=== PATIENT | male | born 1975 | race Caucasian/White ===

== ENCOUNTER 2024-09-01 17:34 | Inpatient (IN) | payer MEDICAID ==
[~2024-09-01] VITALS: Ht 182.9 cm; Wt 136.6 kg
[2024-09-01 17:44] VITALS: BP 149/79; PULSE 92; RESP 17; TEMP 98.7; O2SAT 99
[2024-09-01] MEDS ORDERED: CLINDAMYCIN 900MG IV 50 ML IV ONE (18:00)
--- NOTE | 2024-09-01 18:06 | ED.PDOC ---
Musculoskeletal HPI Comments Varicose Vein Procedure on 08/22/24 PMHx-DM, HTN, High Lipids, DVT, CVA(permanent right sided deficits), [place] Chest tumor resection SHx-Brain Sx for brain tumor Medications-Lasix, Bactrim x5 days, Xarelto HPI: Poor Historian. 48-year-old male presents to emergency department with his caregiver for evaluation of right lower extremity [id number] cellulitis. Patient states he has been going on for approximately 4-5 days. Patient has already been on antibiotics for cellulitis for the last five days but he said he is getting worse. There is increased redness and swelling. Denies any other acute associated symptoms. Patient is neurovascularly intact in the affected extremity. REVIEW OF SYSTEMS: CONSTITUTIONAL: Denies acute: fever, diaphoresis, chills, generalized weakness. HEAD: Denies acute: headache, photophobia Eyes: Denies acute: Double vision, vision loss, eye pain, eye discharge. EARS: Denies acute: tinnitus, hearing loss, ear discharge, ear pain, THROAT: Denies acute: sore throat, swelling, difficulty swallowing , pain with swallowing, change in voice. NECK: Denies acute: neck pain, neck swelling, stiff neck. HEART: Denies acute : chest pain, palpitations, LUNGS: Denies acute: SOB, wheezing, cough, hemoptysis ABDOMEN: Denies acute: abdominal pain, Nausea, Vomiting, diarrhea, melena , hematemesis, hematochezia SKIN: Denies acute: itchiness. EXTREMITIES: Denies acute: calf pain, numbness, tingling, weakness, Denies acute: Low back pain. Neuro: Denies acute: focal neurological deficit, motor or sensory focal neurological deficit, tremors, seizure like activity, confusion, dizziness, change in mental status, loss of bowel or bladder function, cauda equina like symptoms. : Denies acute: dysuria, hematuria, flank pain, increase in urinary frequency. PSYCH: Denies acute: hallucination, suicidal ideation, homicidal ideation. PHYSICAL EXAM: General: no acute distress, awake and alert. Head: normocephalic, atraumatic. Neck: supple, trachea is midline, no swelling. Throat: Normal phonation. Eyes:, no erythema, no purulent discharge, no proptosis, no icterus. Heart: regular rate, regular rhythm, no significant murmur appreciated. Lungs: no apparent respiratory distress, Able to speak in full sentences. No wheezing, no rhonchi, no crackles. No stridors Clear to auscultation bilaterally. Abdomen: non tender to palpation, non distended, soft, no guarding, no rebound, + bowel sounds. Neuro: Awake, Alert, oriented to name, self, situation, follows commands GCS=15. Speech is normal. Skin: no petechia, no purpura, no cyanosis, non-pale, not jaundice. Lower extremities: --3/4- right lower extremity Pitting edema no deformity, no focal swelling, no calf TTP. Patient was neurovascularly intact in the affected extremity. Pedal pulses palpable sensory and motor are present. Makes eye contact. moves all four extremities. Noted right sided deficit. Face: no apparent facial droop. ED COURSE: Chief Complaint: Lower Extremity Time Seen by MD: 17:45 Reviewed Notes: Nurses Notes, Medications, Allergies Allergies: Coded Allergies: Penicillins (Verified Allergy, Unknown, 09/11/23) Information Source: Patient Mode of Arrival: Ambulatory Location: Right Prehospital treatment: None Severity: Moderate Able to Move Extremity: Yes Bear Weight: Limited Pain: Moderate Mechanism: Unknown Symptoms: Swelling, Erythema Past Medical History PAST MEDICAL HISTORY: CVA (permenant right sided defecits), DM, High Lipids, HTN Past Medical History (Other): Brain Tumor, [place] chest tumore recession, DVT Surgical History (Other): Brain Sx due from brain Tumor Family History Family History: Reviewed,noncontributory to illness, Unknown Social History Smoker: Non-Smoker Alcohol: Denies ETOH Use Drugs: Denies Drug Use Lives In: Home Was a procedure done? Was a procedure done?: No Differential Diagnosis EXT Differential Diagnosis: Other (Leg swellingDdx include but not limited to DVT, ischemic limb, pitting edema, volume overload, CHF, cellulitis, hematoma, compartment syndrome, dependent edema, venous stasis.) X-Ray, Labs, Meds, VS Vital Signs Date Time Temp Pulse Resp B/P (MAP) Pulse Ox O2 Delivery O2 Flow Rate FiO2 09/01/24 17:44 98.7 92 17 149/79 (102) 99 98.7 Lab Test 09/01/24 20:19 09/01/24 18:39 Range/Units Troponin I High Sensitivity < 3 L 3 L </=54 ng/L White Blood Count 7.2 4.4-10.8 10^3/uL Red Blood Count 4.42 L 4.5-5.90 10^6/uL Hemoglobin 13.6 13.5-17.5 g/dL Hematocrit 39.9 L 41.0-53.0 % Mean Corpuscular Volume 90.3 80.0-100.0 fL Mean Corpuscular Hemoglobin 30.6 28.0-32.0 pg Mean Corpuscular Hemoglobin Concent 33.9 32.0-36.0 g/dL Red Cell Distribution Width 14.4 H 11.8-14.3 % Platelet Count 316 140-450 10^3/uL Mean Platelet Volume 7.6 6.9-10.8 fL Neutrophils (%) (Auto) 63.0 37.0-80.0 % Lymphocytes (%) (Auto) 25.6 10.0-50.0 % Monocytes (%) (Auto) 8.1 0.0-12.0 % Eosinophils (%) (Auto) 2.2 0.0-7.0 % Basophils (%) (Auto) 1.1 0.0-2.0 % Neutrophils # (Auto) 4.5 1.6-8.6 10 ^3/uL Lymphocytes # (Auto) 1.8 0.4-5.4 10 ^3/uL Monocytes # (Auto) 0.6 0-1.3 10 ^3/uL Eosinophils # (Auto) 0.2 0-0.8 10 ^3/uL Basophils # (Auto) 0.1 0-0.2 10 ^3/uL Nucleated Red Blood Cells 0.2 % Erythrocyte Sedimentation Rate 13 0-20 mm/hr Sodium Level 140 136-145 mmol/L Potassium Level 4.4 3.5-5.1 mmol/L Chloride Level 106 98-107 mmol/L Carbon Dioxide Level 25 20-31 mmol/L Anion Gap 9 5-15 Blood Urea Nitrogen 17 9-23 mg/dL Creatinine 1.26 0.700-1.30 mg/dL Glomerular Filtration Rate Calc 69 >90 mL/min BUN/Creatinine Ratio 13.5 10.0-20.0 Serum Glucose 123 H 74-106 mg/dL Lactic Acid Level 1.4 0.4-2.0 mmol/L Calcium Level 10.2 8.7-10.4 mg/dL Total Bilirubin 1.0 0.2-1.0 mg/dL Aspartate Amino Transferase (AST) 28 13-40 U/L Alanine Aminotransferase (ALT) 26 7-40 U/L Alkaline Phosphatase 67 46-116 U/L C-Reactive Protein High Sensitivity 0.58 <1.0 mg/dL B-Type Natriuretic Peptide 5.88 0-100 pg/mL Total Protein 7.7 5.7-8.2 g/dL Albumin 5.0 H 3.2-4.8 g/dL [place] [address] Ph: [phone] DIAGNOSTIC IMAGING Diagnostic Imaging Report : [id number] Signed PATIENT: OPAL GARSIA ACCT: [id number] UNIT: [id number] : 1975 LOC: ER ROOM / BED: / AGE / SEX: 48 / M ADM STATUS: REG ER SERVICE 2219 ORDERING PHYSICIAN: RICH RODRIGUEZ DO PROCEDURE(s): RLDVT - RT Lower DVT REASON: swelling/redness ORDER NUMBER(s): [id number], ACCESSION NUMBER(s): [id number] RIGHT lower extremity venous duplex Clinical History: swelling/redness Comparison: None Technique: Duplex Doppler evaluation of the deep venous systems of RIGHT lower extremities from the common femoral veins to the popliteal veins including color Doppler and spectral/pulsed waveform analysis was performed. Findings: RIGHT SIDE: The common femoral vein demonstrates appropriate compressibility and waveform variability. There is compressibility/patency of the great saphenous vein at the proximal thigh. The femoral vein demonstrates appropriate compressibility and waveform variability. The deep femoral vein demonstrates appropriate compressibility and waveform variability. The popliteal vein demonstrates appropriate compressibility and waveform variability. There is normal compressibility at the tibioperoneal trunk. Impression: 1. No right femoropopliteal venous thrombosis. ATED BY: ANGEL CHIN Jr. DO DICTATED DATE/TIME: 09/01/241823 SIGNED BY: ANGEL CHIN Jr., SIGNED DATE/TIME: 09/01/241823 CC: [place] [address] Ph: [phone] DIAGNOSTIC IMAGING Diagnostic Imaging Report : [id number] Signed PATIENT: OPAL GARSIA ACCT: [id number] UNIT: [id number] : 1975 LOC: ER ROOM / BED: / AGE / SEX: 48 / M ADM STATUS: REG ER SERVICE 25 ORDERING PHYSICIAN: RICH RODRIGUEZ DO PROCEDURE(s): RTLEXW - RT LOWER EXTREMITY W CON REASON: redness, swelling ORDER NUMBER(s): [id number], ACCESSION NUMBER(s): [id number] EXAM: CT RT LOWER EXTREMITY W CON HISTORY: redness, swelling COMPARISON: None TECHNIQUE: Noncontrast axial CT images of the right lower extremity at and below the level of the right knee were performed. Sagittal and coronal reformatted images were obtained. This CT exam was performed using one or more of the following dose reduction techniques: Automated exposure control, adjustment of the mA and/or kv according to patient size, or the use of iterative reconstruction techniques. Radiation Dose Information: CT Dose: CTDI volume is 7.75 mGy. Dose-length product is 618.13 mGy*cm FINDINGS: No acute fracture or dislocation are identified about the right foot. No significant degenerative changes. Note is made of a fabella. There is bony demineralization. No focal osteopenia or cortical destruction is seen to suggest osteomyelitis. There is moderate subcutaneous edema in the distal right lower extremity predominantly in the mid and lower aspect below the level of the right knee. The Muscle bundles about the right lower extremity are intact. No soft tissue gas or loculated fluid collection IMPRESSION: 1. No acute osseous abnormality. 2. Moderate subcutaneous edema in the distal right lower extremity predominantly in the mid and lower aspect below the level of the right knee. 3. No soft tissue gas or loculated fluid collection. ATED BY: MARVIN SILVA MD DICTATED DATE/TIME: 09/01/242202 SIGNED BY: MARVIN SILVA MD SIGNED DATE/TIME: 09/01/242202 CC: Time of 1ST Reevaluation: 18:15 Reevaluation 1ST: Unchanged Patient Education/Counseling: Diagnosis, Treatment Family Education/Counseling: Diagnosis, Treatment Comments Patient presented with the above HPI. Leg swelling and erythema workup was initiated. patient was found with the above mentioned diagnosis. the following medications were ordered: please refer to order lists of meds and tests obtained by myself Dr. Rodriguez. Patient ED course and VS have been stabilized. Patient has been reassessed in the ED and remained in a stable condition. Pertinent incidental findings were discussed with the patient and/or family. Patient/family voices understanding and is agreeable with plan. Patient has been observed in the ED adequate length of time to insure improvement/stability. Escalation of care considered: Consideration of escalation to observation or admission Patient was ADMITTED to the medicine team for further evaluation and treatment of their presentation. Patient failed outpatient oral antibiotics. All the reports of any imaging studies that were ordered by myself were reviewed by myself. Departure 1 Departure Time of Disposition: 18:31 Impression: Primary Impression: Cellulitis of right leg Disposition: ADMITTED INPATIENT Admit to: Tele Condition: Guarded Discharged With: Self Critical Care Note Critical Care Time?: No Heart Score Heart Score: Heart Score Response (Comments) Value History N/A 0 EKG N/A 0 Age N/A 0 Risk Factors N/A 0 Troponin N/A 0 Total 0 I personally scribed for RICH RODRIGUEZ DO ([email or web address]) on 09/01/24 at 18:06. Electronically submitted by Rodolfo Ruiz ([email or web address]). I personally scribed for RICH RODRIGUEZ DO ([email or web address]) on 09/01/24 at 18:59. Electronically submitted by Nehemias Morales ([email or web address]). I personally scribed for RICH RODRIGUEZ DO ([email or web address]) on 09/01/24 at 23:01. Electronically submitted by Nehemias Morales ([email or web address]). RICH RODRIGUEZ DO Sep 01, 2024 18:06
--- NOTE | 2024-09-01 18:26 | DVH ---
RIGHT lower extremity venous duplex Clinical History: swelling/redness Comparison: None Technique: Duplex Doppler evaluation of the deep venous systems of RIGHT lower extremities from the common femor al veins to the popliteal veins including color Doppler and spectral/pulsed waveform analysis was per formed. Findings: RIGHT SIDE: The common femoral vein demonstrates appropriate compressibility and waveform variability. There is compressibility/patency of the great saphenous vein at the proximal thigh. The femoral vein demonstrates appropriate compressibility and waveform variability. The deep femoral vein demonstrates appropriate compressibility and waveform variability. The popliteal vein demonstrates appropriate compressibility and waveform variability. There is normal compressibility at the tibioperoneal trunk. Impression: 1. No right femoropopliteal venous thrombosis.
[2024-09-01 18:52] LABS: Basophils # (auto) 0.1 10 ^3/uL (0-0.2); Basophils % (auto) 1.1 % (0.0-2.0); Eosinophils # (auto) 0.2 10 ^3/uL (0-0.8); Eosinophils % (auto) 2.2 % (0.0-7.0); Hematocrit 39.9 % (41.0-53.0); Hemoglobin 13.6 g/dL (13.5-17.5); Lymphocytes # (auto) 1.8 10 ^3/uL (0.4-5.4); Lymphocytes % (auto) 25.6 % (10.0-50.0); Mean Corpuscular Hemoglobin 30.6 pg (28.0-32.0); Mean Corpuscular Hgb Conc. 33.9 g/dL (32.0-36.0); Mean Corpuscular Volume 90.3 fL (80.0-100.0); Monocytes # (auto) 0.6 10 ^3/uL (0-1.3); Monocytes % (auto) 8.1 % (0.0-12.0); Neutrophils # (auto) 4.5 10 ^3/uL (1.6-8.6); Nucleated Red Blood Cells % 0.2 %; Platelet Count (auto) 316 10^3/uL (140-450); Red Blood Cells 4.42 10^6/uL (4.5-5.90); Red Cell Distribution Width 14.4 % (11.8-14.3); White Blood Cell 7.2 10^3/uL (4.4-10.8)
[2024-09-01 19:09] LABS: Alanine Aminotransferase 26 U/L (7-40); Alkaline Phosphatase 67 U/L (46-116); Anion Gap 9 (5-15); Aspartate Aminotransferase 28 U/L (13-40); BUN/Creatinine Ratio 13.5 (10.0-20.0); Blood Urea Nitrogen 17 mg/dL (9-23); CRP High Sensitivity 0.58 mg/dL (<1.0); Calcium 10.2 mg/dL (8.7-10.4); Carbon Dioxide 25 mmol/L (20-31); Chloride 106 mmol/L (98-107); Potassium 4.4 mmol/L (3.5-5.1); Sodium 140 mmol/L (136-145); Total Protein 7.7 g/dL (5.7-8.2)
[2024-09-01 19:11] LABS: Glucose 123 mg/dL (74-106)
[2024-09-01 19:26] LABS: Erythrocyte Sedimentation Rate 13 mm/hr (0-20)
--- NOTE | 2024-09-01 22:05 | DVH ---
EXAM: CT RT LOWER EXTREMITY W CON HISTORY: redness, swelling COMPARISON: None TECHNIQUE: Noncontrast axial CT images of the right lower extremity at and below the level of the rig ht knee were performed. Sagittal and coronal reformatted images were obtained. This CT exam was perfo rmed using one or more of the following dose reduction techniques: Automated exposure control, adjust ment of the mA and/or kv according to patient size, or the use of iterative reconstruction techniques . Radiation Dose Information: CT Dose: CTDI volume is 7.75 mGy. Dose-length product is 618.13 mGy*cm FINDINGS: No acute fracture or dislocation are identified about the right foot. No significant degenerative flavio nges. Note is made of a fabella. There is bony demineralization. No focal osteopenia or cortical dest ruction is seen to suggest osteomyelitis. There is moderate subcutaneous edema in the distal right lo wer extremity predominantly in the mid and lower aspect below the level of the right knee. The Muscle bundles about the right lower extremity are intact. No soft tissue gas or loculated fluid collection IMPRESSION: 1. No acute osseous abnormality. 2. Moderate subcutaneous edema in the distal right lower extremity predominantly in the mid and lower aspect below the level of the right knee. 3. No soft tissue gas or loculated fluid collection.
[2024-09-01] MEDS ORDERED: LISINOPRIL 20 MG TAB PO ONE (23:00)
[2024-09-01] MEDS ORDERED: hydroCHLOROthiazide 25 MG TAB PO ONE (23:00)
[2024-09-01] MEDS ORDERED: FUROSEMIDE 20 MG/2 ML VIAL IV ONE (23:00)
[2024-09-01] MEDS ORDERED: VANCOMYCIN PER PHARMACY 0 MG IV SCH (23:00)
[2024-09-01] MEDS ORDERED: ATORVASTATIN 20 MG TAB PO ONE (23:00)
[2024-09-01] MEDS ORDERED: HYDROcodone-ACET 5/325MG TAB PO PRN (23:00)
[2024-09-01] MEDS ORDERED: ACETAMINOPHEN 325 MG TAB PO PRN (23:00)
[2024-09-01] MEDS ORDERED: ENOXAPARIN SOD 100 MG/1 ML SYRINGE SC ONE (23:00)
--- NOTE | 2024-09-01 23:16 | DVHHPRES ---
History of Present Illness Resident Creating Document: ERIK MURPHY RESDIENT History of Present Illness This is a 48-year-old male with past medical history of diabetes, hypertension, dyslipidemia, DVT, varicose vein and brain tumor (status post surgery with CVA of right-sided, 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 Patient had a surgery for bilateral lower limbs 2 weeks back at outpatient basis, subsequently 5 days later he developed right lower limb erythema and swelling, upon visits of [facility] he was diagnosed with cellulitis and was prescribed cephalexin and Bactrim which he used for 5 days but the swelling and erythema worsened and prompted this visit. Due to previous CVA he has right-sided upper limb and lower limb weakness with sensory deficits of right lower limb. He denies fever, nausea, vomiting, shortness of breath, or pain. 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 Denies smoking or any other drug use Home medication: Rosuvastatin, metformin, vitamin B12, furosemide, hydrochlorothiazide, potassium, Xarelto, Ozempic and lisinopril Allergic history: Penicillins Review of Systems Review of Systems General: patient denies fever, fatigue, weaknes, sweating, any recent changes in appetite and weight HEENT: No headaches, visiual changes, hearing loss, tinnitus, nasal congestion and discharge, and sore throat. Cardiovascular: Denies chest pain, palpitations, dyspnea on exertion, orthopnea, or claudication. Respiratory: No cough, and wheezing. Gastrointestinal: Denies nausea, vomiting, dysphagia, odynophagia, heartburn, abdominal pain, flatulence, bloating, diarrhea, constipation, change in stool, or blood in stool. Genitourinary: No dysuria, hematuria, discharge, frequency, urgency, nocturia, incontinence, and urinary retention. Endocrine: No heat or cold intolerance, polydipsia, polyuria, and polyphagia. Neurological: No dizziness, extremity weakness and numbness, tremors, gait disturbance, seizures, and memory impairment. Psychiatric: Denies depression, anxiety,or insomnia. Musculoskeletal: Reports right lower limb swelling and erythema Skin: No rashes, itching, skin lesion, changes in hair, nail, skin texture and breast. Hematologic/Lymphatic: Denies easy bruising, bleeding tendencies, or lymph node enlargement. Allergies: Coded Allergies: Penicillins (Verified Allergy, Unknown, 09/11/23) Exam Vital Signs Vital Signs Date Time Temp Pulse Resp B/P (MAP) Pulse Ox O2 Delivery O2 Flow Rate FiO2 09/01/24 17:44 98.7 92 17 149/79 (102) 99 98.7 Exam General Appearance: Alert, Oriented X3, Cooperative, No acute distress HEENT: Atraumatic, PERRLA, EOMI, Mucous membrane moist/pink Respiratory: Clear to auscultation, Normal air movement Cardiovascular: Regular rate, Normal S1, Normal S2, No murmurs, no chest wall tenderness Abdominal: Normal bowel sounds, Soft, No tenderness, No hepatospenomegaly, No masses Extremities: Right lower limb swelling from the ankle to mid mendoza, with diffuse redness Skin: No rashes, No breakdown, No significant lesion Neuro: Right upper limb power 2/5, right lower limb power 4/5, with sensory deficits of the right lower limb Psych/Mental Status: Mental status NL, Mood NL Labs/Xrays Labs Test 09/01/24 20:19 09/01/24 18:39 Range/Units Troponin I High Sensitivity < 3 L </=54 ng/L White Blood Count 7.2 4.4-10.8 10^3/uL Red Blood Count 4.42 L 4.5-5.90 10^6/uL Hemoglobin 13.6 13.5-17.5 g/dL Hematocrit 39.9 L 41.0-53.0 % Mean Corpuscular Volume 90.3 80.0-100.0 fL Mean Corpuscular Hemoglobin 30.6 28.0-32.0 pg Mean Corpuscular Hemoglobin Concent 33.9 32.0-36.0 g/dL Red Cell Distribution Width 14.4 H 11.8-14.3 % Platelet Count 316 140-450 10^3/uL Mean Platelet Volume 7.6 6.9-10.8 fL Neutrophils (%) (Auto) 63.0 37.0-80.0 % Lymphocytes (%) (Auto) 25.6 10.0-50.0 % Monocytes (%) (Auto) 8.1 0.0-12.0 % Eosinophils (%) (Auto) 2.2 0.0-7.0 % Basophils (%) (Auto) 1.1 0.0-2.0 % Neutrophils # (Auto) 4.5 1.6-8.6 10 ^3/uL Lymphocytes # (Auto) 1.8 0.4-5.4 10 ^3/uL Monocytes # (Auto) 0.6 0-1.3 10 ^3/uL Eosinophils # (Auto) 0.2 0-0.8 10 ^3/uL Basophils # (Auto) 0.1 0-0.2 10 ^3/uL Nucleated Red Blood Cells 0.2 % Erythrocyte Sedimentation Rate 13 0-20 mm/hr Sodium Level 140 136-145 mmol/L Potassium Level 4.4 3.5-5.1 mmol/L Chloride Level 106 98-107 mmol/L Carbon Dioxide Level 25 20-31 mmol/L Anion Gap 9 5-15 Blood Urea Nitrogen 17 9-23 mg/dL Creatinine 1.26 0.700-1.30 mg/dL Glomerular Filtration Rate Calc 69 >90 mL/min BUN/Creatinine Ratio 13.5 10.0-20.0 Serum Glucose 123 H 74-106 mg/dL Lactic Acid Level 1.4 0.4-2.0 mmol/L Calcium Level 10.2 8.7-10.4 mg/dL Total Bilirubin 1.0 0.2-1.0 mg/dL Aspartate Amino Transferase (AST) 28 13-40 U/L Alanine Aminotransferase (ALT) 26 7-40 U/L Alkaline Phosphatase 67 46-116 U/L C-Reactive Protein High Sensitivity 0.58 <1.0 mg/dL B-Type Natriuretic Peptide 5.88 0-100 pg/mL Total Protein 7.7 5.7-8.2 g/dL Albumin 5.0 H 3.2-4.8 g/dL Assessment/Plan Assessment/Plan Cellulitis of right leg CT scan shows, moderate subcutaneous edema in the distal right lower extremity predominantly in the mid and lower aspect below the level of the right knee Wound culture and wound counseled Empiric antibiotic, vancomycin Ruled out DVT Doppler ultrasound of lower limb shows no DVT History of diabetes type 2 Dyslipidemia History of DVT History of CVA Continue home meds DIET: Cardiac diet DVT PROPHYLAXIS: Therapeutic Lovenox GI PROPHYLAXIS:: Protonix CODE STATUS: Goal of care discussed for more than 18 minute, full code DISPOSITION: Med/surge Patient's status and paln discussed with the patient and the patient's caregiver at the bedside. Case discussed with Dr. Holliday. Plan discussed with: Patient, Other (RN) My Orders Orders - NIMISHAERIK SAUER RESDIENT Procedure Category Date Status Time Admit ADMIT 09/01/24 Verified 22:58 Code Status CODE 09/01/24 Verified 22:58 Vital Signs [facility] 09/01/24 Verified 22:58 Review Orders With [facility] 09/01/24 Verified Adm. 22:58 Acetaminophen Tablet [facility] 09/01/24 Verified (Tylenol Tablet) 23:00 Notify Md Of Changes [facility] 09/01/24 Verified From Base 22:58 Advance Directive [facility] 09/01/24 Verified 22:58 Echo 2d Mode Cardiac US 09/01/24 Verified DOP 22:58 Lipid Panel LAB 09/01/24 Verified 22:58 Patient Condition ORDERS 09/01/24 Verified 22:58 Allergies [facility] 09/01/24 Verified 22:58 Hydrocodone-Acet [facility] 09/01/24 Verified 5/325mg Tab ([facility] 23:00 Drug Screen LAB 09/01/24 Verified 22:58 Hemoglobin A1c LAB 09/01/24 Verified 22:58 Stat Ekg For Chest [facility] 09/01/24 Verified Pain 22:58 Notify Md Of Changes [facility] 09/01/24 Verified From Base 22:58 Consistent DIET 09/02/24 Verified Carb(Ccho)Diabetes Breakfast * Wound Consult CONS 09/01/24 Verified Wound Dressing ED NURSING 09/01/24 Verified Drug Screen LAB 09/01/24 Verified 22:58 PTPTT LAB 09/02/24 Verified 04:00 Comprehensive LAB 09/02/24 Verified Metabolic Panel 04:00 Basic Metabolic Panel LAB 09/02/24 Verified 04:00 Vancomycin Per [facility] 09/01/24 Verified Pharmacy 23:00 Atorvastatin (Lipitor) [facility] 09/01/24 Verified 23:00 Atorvastatin (Lipitor) [facility] 09/02/24 Verified 22:00 Lisinopril Tablet [facility] 09/02/24 Verified (Zestril Tablet) 10:00 Lisinopril Tablet [facility] 09/01/24 Verified (Zestril Tablet) 23:00 Furosemide Injection [facility] 09/02/24 Verified (Lasix Injection) 10:00 Furosemide Injection [facility] 09/01/24 Verified (Lasix Injection) 23:00 Hydrochlorothiazide [facility] 09/01/24 Verified Tablet (Hydrochlorot 23:00 Hydrochlorothiazide PHA 09/02/24 Verified Tablet (Hydrochlorot 10:00 Mrsa Screen DALIA 09/01/24 Verified 22:58 Enoxaparin Sodium [facility] 09/02/24 Verified (Lovenox) 10:00 Enoxaparin Sodium PHA 09/01/24 Verified (Lovenox) 23:00 Date of Service: Sep 01, 2024 Billing Provider: PATRICIO HOLLIDAY MD Common Visit Codes: [id number] INP/OBS CARE (HIGH) ERIK MURPHY Sep 01, 2024 23:16 PATRICIO HOLLIDAY MD Sep 02, 2024 17:40
[2024-09-01] MEDS ORDERED: VANCOMYCIN 1GM/250mL NS or D5W KIT IV SCH (23:45)
[2024-09-02] MEDS ORDERED: IOHEXOL 300 MG/ML 100ML BOTTLE IJ ONE (04:33)
--- NOTE | 2024-09-02 06:28 | DVHDSRES ---
Discharge Summary Date of Admission Resident Creating Document: ERIK MURPHY RESDIENT Sep 01, 2024 at 22:58 Date of Discharge: Sep 02, 2024 Admitting Diagnosis Cellulitis Labs/Diagnostic Data: Laboratory Results Test 09/01/24 20:19 09/01/24 18:39 Troponin I High Sensitivity < 3 ng/L (</=54) White Blood Count 7.2 10^3/uL (4.4-10.8) Red Blood Count 4.42 10^6/uL (4.5-5.90) Hemoglobin 13.6 g/dL (13.5-17.5) Hematocrit 39.9 % (41.0-53.0) Mean Corpuscular Volume 90.3 fL (80.0-100.0) Mean Corpuscular Hemoglobin 30.6 pg (28.0-32.0) Mean Corpuscular Hemoglobin Concent 33.9 g/dL (32.0-36.0) Red Cell Distribution Width 14.4 % (11.8-14.3) Platelet Count 316 10^3/uL (140-450) Mean Platelet Volume 7.6 fL (6.9-10.8) Neutrophils (%) (Auto) 63.0 % (37.0-80.0) Lymphocytes (%) (Auto) 25.6 % (10.0-50.0) Monocytes (%) (Auto) 8.1 % (0.0-12.0) Eosinophils (%) (Auto) 2.2 % (0.0-7.0) Basophils (%) (Auto) 1.1 % (0.0-2.0) Neutrophils # (Auto) 4.5 10 ^3/uL (1.6-8.6) Lymphocytes # (Auto) 1.8 10 ^3/uL (0.4-5.4) Monocytes # (Auto) 0.6 10 ^3/uL (0-1.3) Eosinophils # (Auto) 0.2 10 ^3/uL (0-0.8) Basophils # (Auto) 0.1 10 ^3/uL (0-0.2) Nucleated Red Blood Cells 0.2 % Erythrocyte Sedimentation Rate 13 mm/hr (0-20) Sodium Level 140 mmol/L (136-145) Potassium Level 4.4 mmol/L (3.5-5.1) Chloride Level 106 mmol/L (98-107) Carbon Dioxide Level 25 mmol/L (20-31) Anion Gap 9 (5-15) Blood Urea Nitrogen 17 mg/dL (9-23) Creatinine 1.26 mg/dL (0.700-1.30) Glomerular Filtration Rate Calc 69 mL/min (>90) BUN/Creatinine Ratio 13.5 (10.0-20.0) Serum Glucose 123 mg/dL (74-106) Lactic Acid Level 1.4 mmol/L (0.4-2.0) Calcium Level 10.2 mg/dL (8.7-10.4) Total Bilirubin 1.0 mg/dL (0.2-1.0) Aspartate Amino Transferase (AST) 28 U/L (13-40) Alanine Aminotransferase (ALT) 26 U/L (7-40) Alkaline Phosphatase 67 U/L (46-116) C-Reactive Protein High Sensitivity 0.58 mg/dL (<1.0) B-Type Natriuretic Peptide 5.88 pg/mL (0-100) Total Protein 7.7 g/dL (5.7-8.2) Albumin 5.0 g/dL (3.2-4.8) Other Laboratory Tests 09/01/24 18:39 Brief Hx & Hospital Course: This is a 48-year-old male with past medical history of diabetes, hypertension, dyslipidemia, DVT, varicose vein and brain tumor (status post surgery with CVA of right-sided, 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 Patient had a surgery for bilateral lower limbs 2 weeks back at outpatient basis, subsequently 5 days later he developed right lower limb erythema and swelling, upon visits of [facility] he was diagnosed with cellulitis and was prescribed cephalexin and Bactrim which he used for 5 days but the swelling and erythema worsened and prompted this visit. Due to previous CVA he has right-sided upper limb and lower limb weakness with sensory deficits of right lower limb. He denies fever, nausea, vomiting, shortness of breath, or pain. 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 Denies smoking or any other drug use Home medication: Rosuvastatin, metformin, vitamin B12, furosemide, hydrochlorothiazide, potassium, Xarelto, Ozempic and lisinopril Allergic history: Penicillins, Keflex (per patient after taking this medicine he developed hives) On 09/01/2024, patient seen and examined at the bedside. On physical exam right leg was swollen red and mildly tender to palpation. CT scan was showing soft tissue swelling. On Doppler ultrasound there was no DVT. Patient was started on IV antibiotic of vancomycin and admitted for for the management. On 09/02/2024 the patient left against medical advice. Operations or Procedures [place] [id number] Ph: [phone] DIAGNOSTIC IMAGING Diagnostic Imaging Report : [id number] Signed PATIENT: OPAL GARSIA ACCT: [id number] UNIT: [id number] : 1975 LOC: ER ROOM / BED: / AGE / SEX: 48 / M ADM STATUS: REG ER SERVICE 25 ORDERING PHYSICIAN: RICH RODRIGUEZ DO PROCEDURE(s): RTLEXW - RT LOWER EXTREMITY W CON REASON: redness, swelling ORDER NUMBER(s): [id number], ACCESSION NUMBER(s): [id number] EXAM: CT RT LOWER EXTREMITY W CON HISTORY: redness, swelling COMPARISON: None TECHNIQUE: Noncontrast axial CT images of the right lower extremity at and below the level of the right knee were performed. Sagittal and coronal reformatted images were obtained. This CT exam was performed using one or more of the following dose reduction techniques: Automated exposure control, adjustment of the mA and/or kv according to patient size, or the use of iterative reconstruction techniques. Radiation Dose Information: CT Dose: CTDI volume is 7.75 mGy. Dose-length product is 618.13 mGy*cm FINDINGS: No acute fracture or dislocation are identified about the right foot. No significant degenerative changes. Note is made of a fabella. There is bony demineralization. No focal osteopenia or cortical destruction is seen to suggest osteomyelitis. There is moderate subcutaneous edema in the distal right lower extremity predominantly in the mid and lower aspect below the level of the right knee. The Muscle bundles about the right lower extremity are intact. No soft tissue gas or loculated fluid collection IMPRESSION: 1. No acute osseous abnormality. 2. Moderate subcutaneous edema in the distal right lower extremity predominantly in the mid and lower aspect below the level of the right knee. 3. No soft tissue gas or loculated fluid collection. ATED BY: MARVIN SILVA MD DICTATED DATE/TIME: 09/01/242202 SIGNED BY: MARVIN SILVA MD SIGNED DATE/TIME: 09/01/242202 CC: Condition at Discharge: Undetermined Final Diagnosis/Problems List Cellulitis of right leg Ruled out DVT History of diabetes type 2 Dyslipidemia History of DVT History of CVA Discharge Disposition: Eloped Discharge Statement: "Patient was advised to return to the ER or call 911 if any headaches, dizziness, shortness of breath, chest pain, abdominal pain, bleeding, fevers, or worsening of medical condition. Patient was counseled about treatment plan, medications, possible side effects, patientverbalized understanding. All questions were answered to the best of my ability. This discharge took greater then 30 minutes in planning, reviewing documentation, counseling the patient, and discussing with other team members." ASSESSMENT ASSESSMENT Assessment Date of Service: Sep 02, 2024 Billing Provider: PATRICIO ALBRIGHT MD Common Visit Codes: 73875-GRO/OBS DISCH DAY >30min ERIK MURPHY RESDIENT Sep 02, 2024 06:28 PATRICIO ALBRIGHT MD Sep 02, 2024 17:43
[2024-09-02] MEDS ORDERED: hydroCHLOROthiazide 25 MG TAB PO SCH (10:00)
[2024-09-02] MEDS ORDERED: LISINOPRIL 20 MG TAB PO SCH (10:00)
[2024-09-02] MEDS ORDERED: FUROSEMIDE 20 MG/2 ML VIAL IV SCH (10:00)
[2024-09-02] MEDS ORDERED: ENOXAPARIN SOD 100 MG/1 ML SYRINGE SC SCH (11:00)
[2024-09-02] MEDS ORDERED: ATORVASTATIN 20 MG TAB PO SCH (22:00)
== END 2024-09-02 03:35 | disposition left against medical advice (07) | DRG 383 ==
LOC: ER 17:34 → OVERFLOW 22:58
PROVIDERS: ATTEND Emergency Medicine
DX: L03.115 Cellulitis of right lower limb (principal); I69.351 Hemiplegia and hemiparesis following cerebral infarction affecting right dominant side; I10 Essential (primary) hypertension; E78.5 Hyperlipidemia, unspecified; Z88.0 Allergy status to penicillin; Z79.899 Other long term (current) drug therapy; Z86.718 Personal history of other venous thrombosis and embolism; Z79.01 Long term (current) use of anticoagulants
CPT/HCPCS: 36415; 73701; 80053; 83605; 83880; 84484; 85025; 85652; 86141; 87040; 93971; G0378

== ENCOUNTER 2025-04-07 11:59 | Inpatient (IN) | payer MEDICAID ==
[~2025-04-07] VITALS: Ht 188 cm; Wt 125.8 kg
[2025-04-07] MEDS: ACETAMINOPHEN 325 MG TAB PO ONE (12:19)
--- NOTE | 2025-04-07 12:47 | ED.PDOC ---
History of Present Illness(SKN HPI Comments 49 y/o M, brought in by caregiver, with PMHx of HTN, HLD, DM, and CVA presents to the ED for CC of wound check. Caregiver reports, patient was referred to the ED by tromper for IV Abx d/t wound on the left 5th phalanx of the foot. Patient's left extremity is noted to be swollen and erythematous. Patient denies fever, chills, nausea, vomiting, numbness, or tingling. No other symptoms or modifying factors are present at this time. Chief Complaint: Wound Check Time Seen by MD: 12:45 History of Present Illness: Nurses Notes, Medications, Allergies Allergies: Coded Allergies: Codeine (Verified Allergy, Unknown, 04/07/25) Peanut-containing Drug Products (Verified Allergy, Unknown, 04/07/25) Penicillins (Verified Allergy, Unknown, 09/11/23) Information Source: Patient Mode of Arrival: Ambulatory Severity: Moderate Timing: Days Duration: Since onset Prehospital treatment: None Location: Foot (5th phalanx), Leg Immunization Status of Animal: NA Tetanus: Unknown Associated Signs and Symptoms: Redness, Swelling Past Medical History PAST MEDICAL HISTORY: CVA, DM, High Lipids, HTN Family History Family History: Reviewed,noncontributory to illness, Unknown Social History Smoker: Non-Smoker Alcohol: Denies ETOH Use Drugs: Denies Drug Use Lives In: Home Constitutional: denies: chills, diaphoresis, fatigue, fever, malaise, sweats, weakness, others EENTM: denies: blurred vision, double vision, ear bleeding, ear discharge, ear drainage, ear pain, ear ringing, eye pain, eye redness, hearing loss, mouth pain, mouth swelling, nasal discharge, nose bleeding, nose congestion, nose pain, photophobia, tearing, throat pain, throat swelling, voice changes, others Respiratory: denies: cough, hemoptysis, orthopnea, SOB at rest, shortness of breath, SOB with excertion, stridor, wheezing, others Cardiovascular: denies: chest pain, dizzy spells, diaphoresis, Dyspnea on exertion, edema, irregular heart beat, left arm pain, lightheadedness, palpitations, PND, syncope, others Gastrointestinal: denies: abdomen distended, abdominal pain, blood streaked bowels, constipated, diarrhea, dysphagia, difficulty swallowing, hematemesis, melena, nausea, poor appetite, poor fluid intake, rectal bleeding, rectal pain, vomiting, others Genitourinary: denies: burning, dysuria, flank pain, frequency, hematuria, incontinence, penile discharge, penile sore, pain, testicle pain, testicle swelling, urgency, others Neurological: denies: dizziness, fainting, headache, left sided numbness, left sided weakness, numbness, paresthesia, pre-existing deficit, right sided numbness, right sided weakness, seizure, speech problems, tingling, tremors, weakness, others Musculoskeletal: reports: others (left-foot 5th phalanx); denies: back pain, gout, joint pain, joint swelling, muscle pain, muscle stiffness, neck pain Integumetry: denies: bruises, change in color, change in hair/nails, dryness, laceration, lesions, lumps, rash, wounds, others Allergic/Immunocompromised: denies: Difficulty Healing, Frequent Infections, Hives, Itching, others Hematologic/Lymphatic: denies: anemia, blood clots, easy bleeding, easy bruising, swollen glands, others Endocrine: denies: excessive hunger, excessive sweating, excessive thirst, excessive urination, flushing, intolerance to cold, intolerance to heat, unexplained weight gain, unexplained weight loss, others Psychiatric: denies: anxiety, bipolar disorder, depression, hopeless, panic disorder, schizophrenia, sleepless, suicidal, others All Other Systems: Reviewed and Negative Physical Exam General Appearance: Moderate Distress HEENT: Normal ENT Inspection, Pharynx Normal, TMs Normal Neck: Full Range of Motion, Non-Tender, Normal, Normal Inspection Respiratory: Chest Non-Tender, Lungs Clear, No Accessory Muscle Use, No Respiratory Distress, Normal Breath Sounds Cardiovascular: No Edema, No JVD, No Murmur, No Gallop, Normal Peripheral Pulses, Regular Rate/Rhythm Breast Exam: Deferred Gastrointestinal: No Organomegaly, Non Tender, No Pulsatile Mass, Normal Bowel Sounds, Soft Genitalia: Deferred Pelvic: Deferred Rectal: Deferred Extremities: No calf tenderness, Normal capillary refill, No pedal edema Musculoskeletal : Location: Left Extremity Location: Foot Apperance: Limited ROM, Tenderness: Moderate, Other (Redness around the left 5th digit on the toe) Neurologic: Alert, 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 Was a procedure done?: No Differential Diagnosis (INTG) Differential Diagnosis: Cellulitis X-Ray, Labs, Meds, VS Vital Signs Date Time Temp Pulse Resp B/P (MAP) Pulse Ox O2 Delivery O2 Flow Rate FiO2 04/07/25 12:19 100.3 04/07/25 12:00 100.6 90 18 128/84 98 100.6 Lab Test 04/07/25 12:40 Range/Units White Blood Count 12.1 H 4.4-10.8 10^3/uL Red Blood Count 3.92 L 4.5-5.90 10^6/uL Hemoglobin 11.8 L 13.5-17.5 g/dL Hematocrit 34.9 L 41.0-53.0 % Mean Corpuscular Volume 89.0 80.0-100.0 fL Mean Corpuscular Hemoglobin 30.0 28.0-32.0 pg Mean Corpuscular Hemoglobin Concent 33.7 32.0-36.0 g/dL Red Cell Distribution Width 14.0 11.8-14.3 % Platelet Count 428 140-450 10^3/uL Mean Platelet Volume 7.1 6.9-10.8 fL Neutrophils (%) (Auto) 79.9 37.0-80.0 % Lymphocytes (%) (Auto) 9.1 L 10.0-50.0 % Monocytes (%) (Auto) 10.1 0.0-12.0 % Eosinophils (%) (Auto) 0.6 0.0-7.0 % Basophils (%) (Auto) 0.3 0.0-2.0 % Neutrophils # (Auto) 9.6 H 1.6-8.6 10 ^3/uL Lymphocytes # (Auto) 1.1 0.4-5.4 10 ^3/uL Monocytes # (Auto) 1.2 0-1.3 10 ^3/uL Eosinophils # (Auto) 0.1 0-0.8 10 ^3/uL Basophils # (Auto) 0 0-0.2 10 ^3/uL Nucleated Red Blood Cells 0.2 % Erythrocyte Sedimentation Rate 83 H 0-20 mm/hr Sodium Level 134 L 136-145 mmol/L Potassium Level 4.1 3.5-5.1 mmol/L Chloride Level 97 L 98-107 mmol/L Carbon Dioxide Level 28 20-31 mmol/L Anion Gap 9 5-15 Blood Urea Nitrogen 25 H 9-23 mg/dL Creatinine 1.11 0.700-1.30 mg/dL Glomerular Filtration Rate Calc 80 >90 mL/min BUN/Creatinine Ratio 22.5 H 10.0-20.0 Serum Glucose 122 H 74-106 mg/dL Lactic Acid Level 1.7 0.4-2.0 mmol/L Calcium Level 9.9 8.7-10.4 mg/dL Current Medications Medications (Trade) Dose Ordered Sig/Boris Route Start Time Stop Time Status Last Admin Acetaminophen (Tylenol Tablet) 650 mg ONCE ONCE PO 04/07/25 12:15 04/07/25 12:16 DC 04/07/25 12:19 CT L-FOOT: IMPRESSION: 1. Deep plantar soft tissue ulceration with the associated soft tissue emphysema extending to the undersurface of the 5th metatarsal. 2. No CT evidence of an acute fracture or aggressive osseous lesion. 3. No abnormal osseous erosion or sclerosis of the 5th metatarsal. 4. No visualized periosteal reaction. 5. Maintain elevated suspicion for osteomyelitis given the deep penetrating soft tissue ulceration. 6. Correlate with ESR /CRP. 7. Consider follow-up MRI with and without contrast. IV Hep-Lock was established. Blood cultures x2 were drawn. The lactic acid level is within normal limits at 1.7 The patient's CBC shows an elevated white blood cell count of 12.1 The rest of the CBC is within normal limits The chemistry panel shows a glucose of 122. At this time, the patient will be admitted to the hospitalist. We did order a podiatry consult. The patient was also given clindamycin IV piggyback Images Reviewed?: Images reviewed and evaluated by me Time of 1ST Reevaluation: 13:15 Reevaluation 1ST: Unchanged Patient Education/Counseling: Diagnosis, Treatment, Prognosis Family Education/Counseling: Diagnosis, Treatment, Prognosis SEPSIS Sepsis Screen Date sepsis recognized/suspect: Apr 07, 2025 Time Sepsis recognized/suspect: 1200 Recent Procedure: No On Antibiotic Therapy: Yes Respiratory Rate >20: No Heart Rate >90: No Temp<36 C (96.8 F) or >38.3 C: Yes SBP <90 or MAP <65 mmHG: No New Acute Mental Status Change: No Is the patient on CPAP, BIPAP,: No Physician Orders Ct L Foot Wo Contrast (04/07/25 12:18) Heplock Iv (04/07/25 ) Blood Culture (04/07/25 12:19) Clindamycin Ivpb Cleocin (04/07/25 14:15) *Podiatry Consult Lelia([facility]) (04/07/25 14:10) Vital Signs Date Time Temp Pulse Resp B/P (MAP) Pulse Ox O2 Delivery O2 Flow Rate FiO2 04/07/25 12:19 100.3 04/07/25 12:00 100.6 90 18 128/84 98 100.6 Laboratory Tests Test 04/07/25 12:40 Lactic Acid Level 1.7 mmol/L (0.4-2.0) White Blood Count 12.1 10^3/uL (4.4-10.8) H Medications Medications Dose Ordered Sig/Boris Route Start Time Stop Time Status Last Admin Dose Admin Acetaminophen 650 mg ONCE ONCE PO 04/07/25 12:15 04/07/25 12:16 DC 04/07/25 12:19 Departure 1 Departure Time of Disposition: 14:11 Impression: Primary Impression: Osteomyelitis of left foot Qualified Codes: M86.072 - Acute hematogenous osteomyelitis, left ankle and foot Disposition: ADMITTED INPATIENT Admit to: Med Surg Condition: Fair Critical Care Note Critical Care Time?: No Stability Stability form required: Yes Unstable for transfer: ED Physician Assesment (Clinical assesment) Heart Score Heart Score: Heart Score Response (Comments) Value History N/A 0 EKG N/A 0 Age N/A 0 Risk Factors N/A 0 Troponin N/A 0 Total 0 I personally scribed for ROSANNE RODRIGUEZ MD ([email or web address]) on 04/07/25 at 12:47. Electronically submitted by Miranda Gallegos ([email or web address]). I personally scribed for ROSANNE RODRIGUEZ MD ([email or web address]) on 04/07/25 at 12:51. Electronically submitted by Miranda Gallegos ([email or web address]). I personally scribed for ROSANNE RODRIGUEZ MD ([email or web address]) on 04/07/25 at 14:00. Electronically submitted by Miranda Gallegos ([email or web address]). ROSANNE RODRIGUEZ MD Apr 07, 2025 12:47
--- NOTE | 2025-04-07 13:14 | DVH ---
EXAM: CT CT L FOOT WO CONTRAST INDICATION: pain and infection TECHNIQUE: Axial images of left foot without contrast have been obtained along with coronal and sagit bekah reformatted images. All CT scans at this facility use dose modulation, iterative reconstruction, and/or weight based dosing when appropriate to reduce radiation dose to as low as reasonably achievab le. COMPARISON: None FINDINGS: BONES: No CT evidence of an acute fracture or aggressive osseous lesion. No abnormal osseous erosion or sclerosis of the 5th metatarsal. No visualized periosteal reaction. Maintain elevated suspicion f or osteomyelitis given the deep penetrating soft tissue ulceration. Correlate with ESR /CRP. Conside r follow-up MRI with and without contrast MUSCLES: Mild diffuse fatty infiltration of the intrinsic musculature JOINT SPACES: No joint effusion. TENDONS/LIGAMENTS: Intact. OTHER: Deep plantar soft tissue ulceration with the associated soft tissue emphysema extending to the undersurface of the 5th metatarsal IMPRESSION: 1. Deep plantar soft tissue ulceration with the associated soft tissue emphysema extending to the und ersurface of the 5th metatarsal. 2. No CT evidence of an acute fracture or aggressive osseous lesion. 3. No abnormal osseous erosion or sclerosis of the 5th metatarsal. 4. No visualized periosteal reaction. 5. Maintain elevated suspicion for osteomyelitis given the deep penetrating soft tissue ulceration. 6. Correlate with ESR /CRP. 7. Consider follow-up MRI with and without contrast.
[2025-04-07 13:16] LABS: Hematocrit 34.9 % (41.0-53.0); Hemoglobin 11.8 g/dL (13.5-17.5); Mean Corpuscular Hemoglobin 30.0 pg (28.0-32.0); Mean Corpuscular Volume 89.0 fL (80.0-100.0); Nucleated Red Blood Cells % 0.2 %
[2025-04-07 13:17] LABS: Potassium 4.1 mmol/L (3.5-5.1)
[2025-04-07 13:18] LABS: Anion Gap 9 (5-15); Carbon Dioxide 28 mmol/L (20-31)
[2025-04-07 13:19] LABS: Calcium 9.9 mg/dL (8.7-10.4)
[2025-04-07 13:20] LABS: Chloride 97 mmol/L (98-107); Sodium 134 mmol/L (136-145)
[2025-04-07 13:23] LABS: BUN/Creatinine Ratio 22.5 (10.0-20.0)
[2025-04-07 13:33] LABS: Blood Urea Nitrogen 25 mg/dL (9-23); Glucose 122 mg/dL (74-106)
[2025-04-07] MEDS: CLINDAMYCIN 600MG IV 50 ML IV ONE (14:15)
[2025-04-07] MEDS ORDERED: ACETAMINOPHEN 325 MG TAB PO PRN ×2 (15:15→15:30)
[2025-04-07] MEDS ORDERED: HYDROcodone-ACET 5/325MG TAB PO PRN ×2 (15:15→15:30)
[2025-04-07] MEDS ORDERED: NITROGLYCERIN 0.4 MG SL TAB SL PRN ×2 (15:15→15:30)
[2025-04-07] MEDS ORDERED: MORPHINE SULFATE INJ 2 MG/ml SYRG IV PRN ×2 (15:15→15:30)
[2025-04-07 15:36] LABS: Triglycerides 90 mg/dL (< 150)
[2025-04-07 15:38] LABS: Cholesterol 115 mg/dL (< 200)
[2025-04-07 15:41] LABS: HDL Cholesterol 37 mg/dL (40-59)
[2025-04-07] MEDS ORDERED: DEXTROSE (50%) 50ML SYRG IV PRN (16:00)
--- NOTE | 2025-04-07 16:03 | DVHHPRES ---
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 Patient has also past medical history of brain tumor with surgical resection 15 years ago and tumor resection from the chest 10 years ago. The patient is a poor historian but portrait artist was at bedside. Rubber Ball Finisher reports that the patient has been having a blister in the 5th digit of the left foot and has been seen the plastic frame inserter which prescribe antibiotics. Caregiver states that plastic frame inserter at his office referred the patient to the ED to get admitted, IV antibiotics and possible surgical procedure by himself. Upon admission, WBC was 12.1, hemoglobin was 11.8. Rest of CMP was grossly unremarkable. Left foot CT scan showed deep plantar soft tissue ulceration with a associated soft tissue emphysema extending to under surface of the 5th metatarsal. Findings might be consistent with a osteomyelitis reason why plastic frame inserter was consulted for possible incision and drainage. We will start the patient on IV vancomycin and ceftriaxone. We will admit the patient for further assessment and management. 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 Past Surgical History: Other (Brain tumor resection 15 years ago and chest tumor resection 10 years ago) Family History: None Smoke: No ALCOHOL: none Drugs: None Lives: with Family Domestic Violence: Neg Review of Systems Constitutional: No: Fever, Chills, Sweats, Weakness, Malaise, Other Eyes: No: Pain, Vision change, Conjunctivae inflammation, Eyelid inflammation, Other, Redness ENT: No: Ear pain, Ear discharge, Nose pain, Nose discharge, Nose congestion, Mouth pain, Mouth swelling, Throat pain, Throat swelling, Other Respiratory: No: Cough, Dry, Shortness of breath, SOB with excertion, Wheezing, Hemoptysis, Pleuritic Pain, Sputum, Wheezing, Other Cardiovascular: No: Chest Pain, Palpitations, Orthopnea, Paroxysmal Noc. Dyspnea, Edema, Lt Headedness, Other Gastrointestinal: No: Nausea, Vomiting, Abdominal Pain, Diarrhea, Constipation, Melena, Hematochezia, Other Genitourinary: No Dysuria, No Frequency, No Incontinence, No Hematuria, No Retention, No Other Musculoskeletal: foot pain; No: other, neck pain, shoulder pain, arm pain, back pain, hand pain, leg pain Neurological: No: Weakness, Numbness, Incoordination, Change in speech, Confusion, Seizures, Other Allergies: Coded Allergies: Codeine (Verified Allergy, Unknown, 04/07/25) Peanut-containing Drug Products (Verified Allergy, Unknown, 04/07/25) Penicillins (Verified Allergy, Unknown, 09/11/23) Medications Current Medications Medications Dose Ordered Sig/Boris Route Start Time Stop Time Status Last Admin Dose Admin Acetaminophen 650 mg Q6HP PRN PO 04/07/25 15:15 UNV Acetaminophen/ Hydrocodone Bitart 1 tab Q4HP PRN PO 04/07/25 15:15 UNV Nitroglycerin 0.4 mg Q5MINP PRN SL 04/07/25 15:15 UNV Morphine Sulfate 2 mg Q30M PRN IV 04/07/25 15:15 UNV Exam Vital Signs Vital Signs Date Time Temp Pulse Resp B/P (MAP) Pulse Ox O2 Delivery O2 Flow Rate FiO2 04/07/25 14:19 99.2 86 16 108/62 (77) 99 99.2 General Appearance: Alert, Oriented X3, Other (Patient has right-sided amari rologic deficits and is a poor historian secondary to CVA. Not able to provide proper history.) HEENT: Atraumatic, PERRLA, Mucous membr. moist/pink Respiratory: Clear to auscultation, Normal air movement Cardiovascular: Regular rate, Normal S1, Normal S2, No murmurs Abdominal: Normal bowel sounds, Soft, No tenderness, No hepatospenomegaly, No masses Extremities: No clubbing, No cyanosis, No edema, Normal pulses, Other (Left foot ulcer of 5th metaparasal) Skin: No rashes, No breakdown, No significant lesion Neuro: Normal gait, Normal speech, Strength at 5/5 X4 ext, Normal tone, Sensation intact, Cranial nerves 3-12 NL, Reflexes 2+ Psych/Mental Status: Mental status NL, Mood NL Labs/Xrays Labs Test 04/07/25 12:40 Range/Units White Blood Count 12.1 H 4.4-10.8 10^3/uL Red Blood Count 3.92 L 4.5-5.90 10^6/uL Hemoglobin 11.8 L 13.5-17.5 g/dL Hematocrit 34.9 L 41.0-53.0 % Mean Corpuscular Volume 89.0 80.0-100.0 fL Mean Corpuscular Hemoglobin 30.0 28.0-32.0 pg Mean Corpuscular Hemoglobin Concent 33.7 32.0-36.0 g/dL Red Cell Distribution Width 14.0 11.8-14.3 % Platelet Count 428 140-450 10^3/uL Mean Platelet Volume 7.1 6.9-10.8 fL Neutrophils (%) (Auto) 79.9 37.0-80.0 % Lymphocytes (%) (Auto) 9.1 L 10.0-50.0 % Monocytes (%) (Auto) 10.1 0.0-12.0 % Eosinophils (%) (Auto) 0.6 0.0-7.0 % Basophils (%) (Auto) 0.3 0.0-2.0 % Neutrophils # (Auto) 9.6 H 1.6-8.6 10 ^3/uL Lymphocytes # (Auto) 1.1 0.4-5.4 10 ^3/uL Monocytes # (Auto) 1.2 0-1.3 10 ^3/uL Eosinophils # (Auto) 0.1 0-0.8 10 ^3/uL Basophils # (Auto) 0 0-0.2 10 ^3/uL Nucleated Red Blood Cells 0.2 % Erythrocyte Sedimentation Rate 83 H 0-20 mm/hr Sodium Level 134 L 136-145 mmol/L Potassium Level 4.1 3.5-5.1 mmol/L Chloride Level 97 L 98-107 mmol/L Carbon Dioxide Level 28 20-31 mmol/L Anion Gap 9 5-15 Blood Urea Nitrogen 25 H 9-23 mg/dL Creatinine 1.11 0.700-1.30 mg/dL Glomerular Filtration Rate Calc 80 >90 mL/min BUN/Creatinine Ratio 22.5 H 10.0-20.0 Serum Glucose 122 H 74-106 mg/dL Lactic Acid Level 1.7 0.4-2.0 mmol/L Calcium Level 9.9 8.7-10.4 mg/dL SEPSIS Sepsis Screen Date sepsis recognized/suspect: Apr 07, 2025 Time Sepsis recognized/suspect: 1200 Recent Procedure: No On Antibiotic Therapy: Yes Respiratory Rate >20: No Heart Rate >90: No Temp<36 C (96.8 F) or >38.3 C: Yes SBP <90 or MAP <65 mmHG: No New Acute Mental Status Change: No Is the patient on CPAP, BIPAP,: No Physician Orders Ct L Foot Wo Contrast (04/07/25 12:18) Heplock Iv (04/07/25 ) Blood Culture (04/07/25 12:19) *Podiatry Consult Musson(Dvmg) (04/07/25 14:10) Admit (04/07/25 15:15) Code Status (04/07/25 15:15) Vital Signs .PER UNIT PROTOCOL (04/07/25 15:15) Review Orders With Adm.Md (04/07/25 15:15) Encourage Activity As Tolerate (04/07/25 15:15) Regular Diet (04/07/25 Dinner) Acetaminophen Tablet (Tylenol Tablet) (04/07/25 15:15) Notify Md Of Changes From Base (04/07/25 15:15) Advance Directive (04/07/25 15:15) Urinalysis (04/07/25 15:15) Complete Blood Count (04/08/25 04:00) Lipid Panel (04/07/25 15:15) Patient Condition (04/07/25 15:15) Allergies (04/07/25 15:15) Hydrocodone-Acet 5/325mg Tab ([place] 5/32 (04/07/25 15:15) Drug Screen (04/07/25 15:15) Hemoglobin A1c (04/08/25 04:00) Nitroglycerin Sublingual (Ntrostat Subli (04/07/25 15:15) Morphine Sulfate Injection (04/07/25 15:15) Oxygen By Nasal Cannula (04/07/25 15:15) Stat Ekg For Chest Pain (04/07/25 15:15) Notify Md Of Changes From Base (04/07/25 15:15) Extension Course Counselor For 24 Hours (04/07/25 15:15) Emergency Dysrhythmia Protocol (04/07/25 15:15) Rhythm Strips Once Every Shift (04/07/25 15:15) Wound Culture W/ Gs (04/07/25 15:24) Vitamin D, 25-Hydroxy (04/07/25 15:24) Vitamin B12 (04/07/25 15:24) Vital Signs Date Time Temp Pulse Resp B/P (MAP) Pulse Ox O2 Delivery O2 Flow Rate FiO2 04/07/25 14:19 99.2 86 16 108/62 (77) 99 99.2 04/07/25 12:19 100.3 04/07/25 12:00 100.6 90 18 128/84 98 100.6 Laboratory Tests Test 04/07/25 12:40 Lactic Acid Level 1.7 mmol/L (0.4-2.0) White Blood Count 12.1 10^3/uL (4.4-10.8) H Medications Medications Dose Ordered Sig/Boris Route Start Time Stop Time Status Last Admin Dose Admin Acetaminophen 650 mg ONCE ONCE PO 04/07/25 12:15 04/07/25 12:16 DC 04/07/25 12:19 650 MG Assessment/Plan Assessment/Plan Assessment/Plan Sepsis due to left foot osteomyelitis Acute osteomyelitis of left foot -CT scan of the left foot showed deep plantar soft tissue ulceration with a associated soft tissue emphysema extending to under surface of the 5th metatarsal. -Start IV vancomycin and ceftriaxone -ordered wound cultures -ordered blood cultures -ordered left lower extremity arterial Doppler and left lower extremity venous Doppler to rule out severe PAD and DVT respectively -consult plastic frame inserter for possible incision and drainage procedure -NPO after midnight -hold anticoagulation for procedure tomorrow a.m. Type 2 diabetes mellitus -ordered hemoglobin A1c -mild sliding scale insulin Primary hypertension -start lisinopril 40 mg daily -monitor blood pressure Dyslipidemia -ordered lipid panel -start atorvastatin 40 mg daily History of brain tumor resection and CVA -hold Xarelto at this time due to possible procedure tomorrow a.m. -resume Xarelto after procedure Goals of care discussed with the patient at bedside, full code Plan discussed with Dr. Holliday Plan discussed with: Patient, Other My Orders Orders - SUJATHA DIAZ Procedure Category Date Status Time Admit ADMIT 04/07/25 Transmitted 15:15 Code Status CODE 04/07/25 Transmitted 15:15 Vital Signs [facility] 04/07/25 In Process 15:15 Review Orders With [facility] 04/07/25 In Process Adm. 15:15 Encourage Activity As [facility] 04/07/25 In Process Tolerate 15:15 Regular Diet DIET 04/07/25 Transmitted Dinner Acetaminophen Tablet PHA 04/07/25 Logged (Tylenol Tablet) 15:15 Notify Md Of Changes [facility] 04/07/25 In Process From Base 15:15 Advance Directive [facility] 04/07/25 In Process 15:15 Urinalysis LAB 04/07/25 Logged 15:15 Complete Blood Count LAB 04/08/25 Verified 04:00 Lipid Panel LAB 04/07/25 In Process 15:15 Patient Condition ORDERS 04/07/25 Transmitted 15:15 Allergies [facility] 04/07/25 In Process 15:15 Hydrocodone-Acet PHA 04/07/25 Logged 5/325mg Tab ([place] 15:15 Drug Screen LAB 04/07/25 Logged 15:15 Hemoglobin A1c LAB 04/08/25 Verified 04:00 Nitroglycerin PHA 04/07/25 Logged Sublingual (Ntrostat 15:15 Morphine Sulfate PHA 04/07/25 Logged Injection 15:15 Oxygen By Nasal RT 04/07/25 Transmitted Cannula 15:15 Stat Ekg For Chest [facility] 04/07/25 In Process Pain 15:15 Notify Md Of Changes [facility] 04/07/25 In Process From Base 15:15 Extension Course Counselor For [facility] 04/07/25 In Process 24 Hours 15:15 Emergency Dysrhythmia [facility] 04/07/25 In Process Protocol 15:15 Rhythm Strips Once [facility] 04/07/25 In Process Every Shift 15:15 Wound Culture W/ Gs DALIA 04/07/25 Logged 15:24 Vitamin D, 25-Hydroxy LAB 04/07/25 Transmitted 15:24 Vitamin B12 LAB 04/07/25 Verified 15:24 Date of Service: Apr 07, 2025 Billing Provider: SUJATHA DIAZ Common Visit Codes: [id number] INP/OBS CARE (HIGH) Secondary Visit Codes: [id number] CARE PLAN 30 MINUTES SUJATHA DIAZ Apr 07, 2025 16:03 PATRICIO HOLLIDAY MD Apr 07, 2025 16:40
[2025-04-07 16:17] LABS: Iron 24.0 ug/dL (65-175)
[2025-04-07 16:19] LABS: Total Iron Binding Capacity 272.0 ug/dL (250-425)
--- NOTE | 2025-04-07 16:43 | DVH ---
CLINICAL HISTORY: Left lower extremity swelling and redness R/O DVT TECHNIQUE: Color and duplex doppler imaging of the left lower extremity veins was performed. Vessel c ompression if possible was also performed. WID: COMPARISON: None FINDINGS: Enlarged left inguinal lymph node measuring 3.2 cm. Left common femoral vein: Normal compressibility and flow. Left femoral vein: Normal compressibility and flow. Left popliteal vein: Normal compressibility and flow. IMPRESSION: 1. NO SONOGRAPHIC EVIDENCE FOR DEEP VENOUS THROMBOSIS IN THE LEFT LOWER EXTREMITY VEINS.
[2025-04-07] MEDS: InsuLIN REG 1unit/0.01ml Soln (100units/ml) SC SCH (17:00)
--- NOTE | 2025-04-07 17:21 | DVH ---
Left LOWER EXTREMITY ARTERIAL DOPPLER ULTRASOUND CLINICAL HISTORY: R/O SEVERE PAD, hypertension, smoking TECHNIQUE: Multiple grayscale, color Doppler and spectral Doppler ultrasound images were obtained of left leg for evaluation of the peripheral arteries. COMPARISON: None FINDINGS: The left common femoral (CHAIR SPRINGER), upper deep femoral, superficial femoral (SFA), popliteal, anterior tib ial (TANG), posterior tibial (SOLUTION SPECIALIST) were evaluated on this exam. The distal posterior tibial artery, do rsalis pedis artery, and anterior tibial artery not visualized due to bandaging. Grayscale images demonstrate no significant atherosclerotic plaque. Left: Color doppler images demonstrate no visible stenosis or occlusion. Spectral analysis demonstrates no rmal, high-resistive blood flow. Systolic acceleration is normal. No significant change in velocity to suggest high-grade stenosis. Velocities (in cm/sec): Common femoral artery: 118; proximal deep femoral artery: 79; superficial femoral artery proximal 102 , mid 107, distal 115; popliteal: 139; posterior tibial: 176 Mild subcutaneous edema in the left calf. IMPRESSION: 1. No high-grade arterial stenosis or occlusion in the left lower extremity. 2. There appears to be 30-49% stenosis of the posterior tibial artery based on velocity. 3. Subcutaneous edema in the left calf.
[2025-04-07 18:12] VITALS: BP 117/67; PULSE 70; RESP 20; TEMP 98.8; O2SAT 100
[2025-04-07] MEDS: ACCU-CHEK COMFORT CURVE STRIP VI SCH (18:25)
[2025-04-07] MEDS: VANCOMYCIN 1GM/250ML KIT 250 ML IV ONE (18:51)
[2025-04-07] MEDS: SODIUM CHLORIDE 0.9% 500 ML IV ONE (18:51)
[2025-04-07 20:44] VITALS: BP 119/55; PULSE 84; RESP 18; TEMP 98.6; O2SAT 96
[2025-04-07] MEDS: ATORVASTATIN 20 MG TAB PO SCH (21:47)
[2025-04-07 22:20] VITALS: BP 113/65; PULSE 77; RESP 17; TEMP 99; O2SAT 97
[2025-04-08] VITALS (7 sets, daily range): BP systolic 106–121; BP diastolic 64–74; PULSE 74–81; RESP 15–20; TEMP 97.7–98.9; O2SAT 90–100
[2025-04-08 06:19] LABS: Hematocrit 30.8 % (41.0-53.0); Hemoglobin 10.8 g/dL (13.5-17.5); Mean Corpuscular Hemoglobin 30.8 pg (28.0-32.0); Mean Corpuscular Volume 88.2 fL (80.0-100.0); Nucleated Red Blood Cells % 0.2 %
[2025-04-08] MEDS ORDERED: VANCOMYCIN PER PHARMACY 0 MG IV SCH (09:30)
[2025-04-08] MEDS: LISINOPRIL 20 MG TAB PO SCH (09:49)
[2025-04-08] MEDS: VANCOMYCIN 1GM/250ML KIT 250 ML IV SCH (13:42)
[2025-04-08] MEDS: CLINDAMYCIN 600MG IV 50 ML IV SCH (14:00)
--- NOTE | 2025-04-08 22:23 | DVHPNRES ---
Progress Note Date Seen: Apr 08, 2025 Resident Creating Document: PATRICIO HOLLIDAY MD Has the PT tested + for MRSA If YES, has PT been informed?: No Medical Necessity Reason Pt with a Central, PICC or Fol: No Subjective Review of Systems Ben Romeo is a 49-year-old male, with past medical history of hypertension, brain tumor, CVA with right-sided deficits (), dyslipidemia and chronic right foot ulcer. The patient came to the ED with a chief complaint of left and right leg erythema, edema and pain. The patient is a poor historian. The patient report that after CVA he had persistens right sided deficit since . The patient reports chronic ulcer on right foot near he has been having a ulcer and blister near the 5th digit of the left foot and has been seen the child welfare director which prescribe antibiotics. The patient consulted the child welfare director who advised to visit the ED for futher management of possible cellulitis. In the ED: WBC was 12.1, hemoglobin was 11.8. Rest of CMP was grossly unremarkable. Left foot CT scan showed deep plantar soft tissue ulceration with a associated soft tissue emphysema extending to under surface of the 5th metatarsal. Findings might be consistent with a osteomyelitis reason why child welfare director was consulted for possible incision and drainage. We will start the patient on IV vancomycin and ceftriaxone. Past medical history: Hypertension, dyslipidemia, CVA 15 years ago Home medications. 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 Admission course: Today 04/08/25, the patient was evaluated and examined at bedside, the patient reports no changes in his state, no new complaints were reported. VS: BP: 117/64mmHg, HR: 78bpm, afebrile, Labs: Hb: 10.8, ERS: 83. The patient continues with IV antibiotics: Clindamycin, Vancomycin and Ceftriaxone. Wound consult was placed. We will continue monitoring this patient. ROS: Constitutional: No: Fever, Chills, Sweats, Weakness, Malaise, Other Eyes: No: Pain, Vision change, Conjunctivae inflammation, Eyelid inflammation, Other, Redness ENT: No: Ear pain, Ear discharge, Nose pain, Nose discharge, Nose congestion, Mouth pain, Mouth swelling, Throat pain, Throat swelling, Other Respiratory: No: Cough, Dry, Shortness of breath, SOB with excertion, Wheezing, Hemoptysis, Pleuritic Pain, Sputum, Wheezing, Other Cardiovascular: No: Chest Pain, Palpitations, Orthopnea, Paroxysmal Noc. Dyspnea, Edema, Lt Headedness, Other Gastrointestinal: No: Nausea, Vomiting, Abdominal Pain, Diarrhea, Constipation, Melena, Hematochezia, Other Genitourinary: No Dysuria, No Frequency, No Incontinence, No Hematuria, No Retention, No Other Musculoskeletal: foot pain; No: other, neck pain, shoulder pain, arm pain, back pain, hand pain, leg pain Neurological: No: Weakness, Numbness, Incoordination, Change in speech, Confusion, Seizures, Other Objective vital signs Vital Sign Date Time Temp Pulse Resp B/P (MAP) Pulse Ox O2 Delivery O2 Flow Rate FiO2 04/08/25 17:10 98.4 74 18 111/70 (84) 91 98.4 04/08/25 08:00 Room Air* 0 21 Total Intake and Output 04/07/25 04/07/25 04/08/25 15:00 23:00 07:00 Intake Total 0 ml Output Total 350 ml Balance -350 ml medications Current Medications Medications Dose Ordered Sig/Boris Route Start Time Stop Time Status Last Admin Dose Admin Morphine Sulfate 2 mg Q30M PRN IV 04/07/25 15:30 Acetaminophen 650 mg Q6HP PRN PO 04/07/25 15:30 Acetaminophen/ Hydrocodone Bitart 1 tab Q4HP PRN PO 04/07/25 15:30 Nitroglycerin 0.4 mg Q5MINP PRN SL 04/07/25 15:30 Ceftriaxone Sodium 50 ml @ 100 mls/hr DAILY IV 04/07/25 16:00 04/08/25 09:57 100 MLS/HR Diagnostic Test (Pha) 1 strip ACHS 04/07/25 17:00 04/08/25 17:22 1 STRIP Insulin Human Regular ACHS SC 04/07/25 17:00 04/08/25 06:26 3 UNITS Dextrose 50 ml UD PRN IV 04/07/25 16:00 Atorvastatin Calcium 40 mg HS PO 04/07/25 22:00 04/07/25 21:47 40 MG Lisinopril 40 mg DAILY PO 04/08/25 10:00 04/08/25 09:49 40 MG Vancomycin HCl 0 ml @ 0 mls/hr UD IV 04/08/25 09:30 Clindamycin Phosphate 50 ml @ 50 mls/hr Q8HR IV 04/08/25 14:00 04/08/25 14:00 50 MLS/HR Vancomycin HCl 250 ml @ 200 mls/hr Q8H IV 04/08/25 14:00 04/08/25 13:42 200 MLS/HR Examination General Appearance: Alert, Oriented X3, Cooperative, No acute distress HEENT: Atraumatic, PERRLA, EOMI, Mucous membrane moist/pink Respiratory: Clear to auscultation, Normal air movement Cardiovascular: Regular rate, Normal S1, Normal S2, No murmurs, no chest wall tenderness Abdominal: Normal bowel sounds, Soft, No tenderness, No hepatospenomegaly, No masses Extremities: Right lower limb edema, warmth and erythema from the ankle to mid mendoza. Left leg erythema, no warmth or edema. Skin: No rashes, No breakdown, No significant lesion Neuro: Right upper limb strength 2/5, right lower limb strength 4/5, with sensory deficits of the right lower limb Psych/Mental Status: Mental status NL, Mood NL laboratory and microbiology Laboratory Tests 04/08/25 04:49 04/07/25 12:40 Test 04/07/25 12:40 Range/Units Serum Glucose 122 H 74-106 mg/dL Microbiology Date/Time Source Procedure Growth Status 04/07/25 12:40 Blood Blood Culture - Preliminary NO GROWTH AFTER 24 HOURS OF INCUBATION. Resulted Problem List/Assessment/Plan Problem List/Assessment/Plan #Cellulitis of right leg #Osteomyelitis of the right foot CT scan shows, moderate subcutaneous edema in the distal right lower extremity predominantly in the mid and lower aspect below the level of the right knee Wound culture wound consult Vancomycin Clindamycin Ceftriaxone Surgical debridement #Ruled out DVT Doppler ultrasound of lower limb shows no DVT #Dyslipidemia Lipid panel Atorvastatin 40mg #History of DVT #History of CVA DVT prophylaxis #Essential Hypertension Lisinopril 40m Diet: NPO after midnight for procedure tomorrow DVT prophylaxis Goals of care discussed with the patient > 35 min. Discussed plan of care with Dr. Holliday Code status: Full code PCP: Marline Plan discussed with: Patient, the patient agrees with the plan. Plan discussed with: Patient My Orders My Orders Orders - KRYSTYNA FOFANA Procedure Category Date Status Time * Wound Consult CONS 04/08/25 Transmitted Communication Order ORDERS 04/08/25 Transmitted 11:42 Date of Service: Apr 08, 2025 Billing Provider: PATRICIO HOLLIDAY MD Common Visit Codes: [id number] INP/OBS CARE(HIGH) KRYSTYNA FOFANA RESIDENT Apr 08, 2025 22:22
[2025-04-09] VITALS (9 sets, daily range): BP systolic 101–123; BP diastolic 59–78; PULSE 60–88; RESP 16–20; TEMP 97.5–98; O2SAT 90–98
[2025-04-09 07:04] LABS: Hematocrit 34.2 % (41.0-53.0); Hemoglobin 11.7 g/dL (13.5-17.5); Mean Corpuscular Hemoglobin 30.5 pg (28.0-32.0); Mean Corpuscular Volume 89.4 fL (80.0-100.0); Nucleated Red Blood Cells % 0.1 %
[2025-04-09 07:18] LABS: INR 1.06 (0.9-1.15); Partial Thromboplastin Time 28.5 SEC (24.5-34.5); Prothrombin Time 11.2 sec (9.3-11.8)
--- NOTE | 2025-04-09 10:32 | ECG ---
[facility] Test Date: 2025-04-09 Test Time: 10:13:20 Pat Name: OPAL GARSIA Department: Room: 0286 B Gender: M Facility Maintenance Technician: RAJIV : 1975 Requested By: KRYSTYNA FOFANA Order Number: [id number] Reading MD: Finn Moody Measurements Intervals [place] Rate: 65 P: 9 NE: 156 QRS: 3 QRSD: 88 T: 31 QT: 403 QTc: 419 Interpretive Statements Sinus rhythm Baseline wander in lead(s) V3,V6 Electronically Signed On 04-13-2025 15:27:39 PDT by Finn Moody Please click the below link to view image of tracing.
[2025-04-09 11:03] LABS: Alanine Aminotransferase 15 U/L (7-40); Alkaline Phosphatase 81 U/L (46-116); Anion Gap 14 (5-15); BUN/Creatinine Ratio 16.9 (10.0-20.0); Blood Urea Nitrogen 14 mg/dL (9-23); Calcium 9.1 mg/dL (8.7-10.4); Carbon Dioxide 23 mmol/L (20-31); Chloride 102 mmol/L (98-107); Potassium 4.1 mmol/L (3.5-5.1); Sodium 139 mmol/L (136-145); Total Protein 7.5 g/dL (5.7-8.2)
[2025-04-09 11:04] LABS: Albumin 4.3 g/dL (3.2-4.8)
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
[2025-04-09 11:05] LABS: Bilirubin, Total 0.7 mg/dL (0.2-1.0)
[2025-04-09 11:30] LABS: Glucose 107 mg/dL (74-106)
[2025-04-09] MEDS: BUPIVACAINE 0.5% P/F INJ 10 ML VIAL ONE (13:11)
--- NOTE | 2025-04-09 16:28 | DVHOP2 ---
Operative Report - 2 Report Details Date: 04/09/25 Preop Diagnosis: 1. Left foot abscess 2. Left foot osteomyelitis 3. Left foot necrotizing fasciitis 4. Left foot pain Postop Diagnosis: Same as preop Surgeon: Ambrosio Padron MD Anesthesiologist: See anesthesia Anesthesia: Mac Consent: The patient was informed of the risks and benefits of the procedure. These include but are not limited to complications of anesthesia, postoperative infection, incomplete relief of symptoms, recurrence of symptoms, damage to blood vessels, nerves and tendons, deep venous thrombosis, pulmonary embolism and possible need for repeat surgery in the future. Complications: None Estimated Blood Loss: Minimal Fluids: See anesthesia Findings: Consistent with diagnosis Indications for Surgery: Worsening foot wound Name of Procedure Performed 1. Left foot I&D to bone (29130) Procedure Details Procedure Details: PRE-PROCEDURE INFORMATION: In the pre-op holding area, the extremity to be operated on was clearly marked and the patient verified correct laterality of the marking. The patient was transferred to the OR table and placed in a supine position. A timeout was performed in which identification of the correct patient, procedure, location, and materials was done. The left foot and leg were prepped and draped in normal sterile fashion. DESCRIPTION OF PROCEDURE: Attention was directed to the left foot where area of fluctuance was noted. An incision was made over this area and was deepened through blunt dissection. The incision was deepened to the level of abscess and bone. Care was taken to the dissection to avoid any neurovascular and tendinous structures. The incision was deepened to the bone, and the abscess appeared to be purulent fluid consistent with pus. The cortices of the bone was then remove d with rongeur an all necrotic tissue. After the abscess was drained, the area was irrigated with 3 L normal saline using cysto tubing. Deep cultures were then obtained from the wound. The area was then inspected and any areas of tracking, especially along the tendons were also drained. The wound was packed with Betadine-soaked gauze and we will need to be closed at a later date. POSTOPERATIVE INFORMATION: The patient tolerated the above noted procedure and anesthesia well and was transferred to the PACU with vital signs stable, and vascular status intact with capillary refill intact to all digits. Patient will need PICC line and 6 weeks IV antibiotics. Patient will take back for subsequent procedure patient may possibly need a wound VAC depending on the amount of tissue loss. Condition Good Disposition Still a Patient Visit Coding Podiatry Date of Service if different f: Apr 09, 2025 Billing Provider: AMBROSIO PADRON DPM Podiatry Common Visit Codes: PROCEDURE ONLY AMBROSIO PADRON DPM Apr 09, 2025 16:28
[2025-04-09] MEDS: LIDOCAINE 1% (LOCAL ANESTH.) PF 5ml SDV ID ONE (17:00)
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
[2025-04-09] MEDS: SODIUM CHLOR 0.9% PF (SALINE LOCK) 10ML VIAL/SYR IV SCH (21:50)
[2025-04-10 05:00] VITALS: BP 108/65; PULSE 69; RESP 16; TEMP 97.8; O2SAT 91
[2025-04-10 07:33] LABS: Hematocrit 30.7 % (41.0-53.0); Hemoglobin 10.6 g/dL (13.5-17.5); Mean Corpuscular Hemoglobin 30.9 pg (28.0-32.0); Mean Corpuscular Volume 89.0 fL (80.0-100.0); Nucleated Red Blood Cells % 0.0 %
[2025-04-10 07:47] LABS: Chloride 105 mmol/L (98-107); Potassium 4.2 mmol/L (3.5-5.1); Sodium 140 mmol/L (136-145)
[2025-04-10 07:48] LABS: Anion Gap 8 (5-15); Carbon Dioxide 27 mmol/L (20-31)
[2025-04-10 07:53] LABS: BUN/Creatinine Ratio 14.3 (10.0-20.0); Blood Urea Nitrogen 12 mg/dL (9-23)
[2025-04-10 07:56] LABS: Calcium 8.4 mg/dL (8.7-10.4); Glucose 125 mg/dL (74-106)
[2025-04-10 09:00] VITALS: BP 107/68; PULSE 79; RESP 19; TEMP 98.4; O2SAT 95
[2025-04-10 13:00] VITALS: BP 128/86; PULSE 71; RESP 18; TEMP 98.3; O2SAT 96
[2025-04-10] MEDS ORDERED: VANCOMYCIN 1.5GM/250ML 250 ML IV SCH (15:00)
[2025-04-10] MEDS: VANCOMYCIN 1GM/250ML KIT 250 ML IV SCH (15:38)
[2025-04-10 17:00] VITALS: BP 125/78; PULSE 65; RESP 19; TEMP 98.2; O2SAT 96
[2025-04-10 20:00] VITALS: PULSE 71
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
[2025-04-10 21:00] VITALS: BP 142/83; PULSE 74; RESP 18; TEMP 98.5; O2SAT 97
[2025-04-11] VITALS (7 sets, daily range): BP systolic 120–146; BP diastolic 69–90; PULSE 58–78; RESP 17–19; TEMP 97.9–98.6; O2SAT 94–98
[2025-04-11 07:23] LABS: Hematocrit 31.5 % (41.0-53.0); Hemoglobin 11.1 g/dL (13.5-17.5); Mean Corpuscular Hemoglobin 30.7 pg (28.0-32.0); Mean Corpuscular Volume 87.0 fL (80.0-100.0); Nucleated Red Blood Cells % 0.1 %
[2025-04-11 07:46] LABS: Anion Gap 11 (5-15); Carbon Dioxide 25 mmol/L (20-31); Chloride 103 mmol/L (98-107); Potassium 3.6 mmol/L (3.5-5.1); Sodium 139 mmol/L (136-145)
[2025-04-11 07:52] LABS: BUN/Creatinine Ratio 11.3 (10.0-20.0); Blood Urea Nitrogen 9 mg/dL (9-23)
[2025-04-11 07:53] LABS: Calcium 8.5 mg/dL (8.7-10.4); Glucose 124 mg/dL (74-106)
--- NOTE | 2025-04-11 11:14 | DVHPNRES ---
Progress Note Date Seen: Apr 11, 2025 Resident Creating Document: SUSANA HARVEY RESIDENT Has the PT tested + for MRSA If YES, has PT been informed?: No Medical Necessity Reason Pt with a Central, PICC or Fol: No Subjective Review of Systems Ben Romeo is a 49-year-old male, with past medical history of hypertension, brain tumor, CVA with right-sided deficits (), dyslipidemia and chronic right foot ulcer. The patient came to the ED with a chief complaint of left and right leg erythema, edema and pain. The patient is a poor historian. The patient report that after CVA he had persistens right sided deficit since . The patient reports chronic ulcer on right foot near he has been having a ulcer and blister near the 5th digit of the left foot and has been seen the product development carpenter which prescribe antibiotics. The patient consulted the product development carpenter who advised to visit the ED for futher management of possible cellulitis. Patient was seen and examined on the bedside. He is alert oriented x3. Day 2 s/p I&D of the left foot. Scheduled for another I and D of the left foot on 04/13/25. Objective vital signs Vital Sign Date Time Temp Pulse Resp B/P (MAP) Pulse Ox O2 Delivery O2 Flow Rate FiO2 04/11/25 09:28 139/88 04/11/25 09:00 98.6 59 19 98 98.6 04/11/25 08:00 Room Air* 0 21 Total Intake and Output 04/10/25 04/10/25 04/11/25 15:00 23:00 07:00 Intake Total 50 ml 1200 ml 600 ml Output Total 1200 ml 975 ml Balance 50 ml 0 ml -375 ml medications Current Medications Medications Dose Ordered Sig/Boris Route Start Time Stop Time Status Last Admin Dose Admin Morphine Sulfate 2 mg Q30M PRN IV 04/07/25 15:30 Acetaminophen 650 mg Q6HP PRN PO 04/07/25 15:30 Acetaminophen/ Hydrocodone Bitart 1 tab Q4HP PRN PO 04/07/25 15:30 Nitroglycerin 0.4 mg Q5MINP PRN SL 04/07/25 15:30 Ceftriaxone Sodium 50 ml @ 100 mls/hr DAILY IV 04/07/25 16:00 04/11/25 09:27 100 MLS/HR Diagnostic Test (Pha) 1 strip ACHS 04/07/25 17:00 04/10/25 21:20 1 STRIP Insulin Human Regular ACHS SC 04/07/25 17:00 04/08/25 06:26 3 UNITS Dextrose 50 ml UD PRN IV 04/07/25 16:00 Atorvastatin Calcium 40 mg HS PO 04/07/25 22:00 04/10/25 21:20 40 MG Lisinopril 40 mg DAILY PO 04/08/25 10:00 04/11/25 09:28 40 MG Vancomycin HCl 0 ml @ 0 mls/hr UD IV 04/08/25 09:30 Clindamycin Phosphate 50 ml @ 50 mls/hr Q8HR IV 04/08/25 14:00 04/11/25 05:12 50 MLS/HR Sodium Chloride 10 ml QSHIFT@, IV 04/09/25 22:00 04/11/25 09:28 10 ML Vancomycin HCl 250 ml @ 250 mls/hr Q8H IV 04/10/25 15:00 04/11/25 06:06 250 MLS/HR Examination Examination General Appearance: Alert, Oriented X3, Cooperative, No acute distress HEENT: Atraumatic, PERRLA, EOMI, Mucous membrane moist/pink Respiratory: Clear to auscultation, Normal air movement Cardiovascular: Regular rate, Normal S1, Normal S2, No murmurs, no chest wall tenderness Abdominal: Normal bowel sounds, Soft, No tenderness, No hepatospenomegaly, No masses Extremities: Right foot with othopedic boot, foot cover with dressing with yellowish secretion, foul smell. Right lower limb edema, warmth and erythema from the ankle to mid mendoza. Left leg erythema, no warmth or edema. Skin: No rashes, No breakdown, No significant lesion Neuro: Right upper limb strength 2/5, right lower limb strength 4/5, with sensory deficits of the right lower limb Psych/Mental Status: Mental status NL, Mood NL laboratory and microbiology Laboratory Tests 04/11/25 06:25 Test 04/11/25 06:25 Range/Units Serum Glucose 124 H 74-106 mg/dL Microbiology Date/Time Source Procedure Growth Status 04/07/25 12:40 Blood Blood Culture - Preliminary NO GROWTH AFTER 72 HOURS OF INCUBATION. Resulted Labs and/or images reviewed: Labs reviewed by me, Image(s) reviewed by me Problem List/Assessment/Plan Problem List/Assessment/Plan #Cellulitis of right leg #Osteomyelitis of the right foot CT scan shows, moderate subcutaneous edema in the distal right lower extremity predominantly in the mid and lower aspect below the level of the right knee Pending Wound culture Vancomycin 1gr IV daily Ceftriaxone 1 gr IV daily Surgical I&D on 04/13/25 #Ruled out DVT Doppler ultrasound of lower limb shows no DVT #Dyslipidemia Lipid panel Atorvastatin 40mg #History of DVT #History of CVA DVT prophylaxis #Hypertensive heart disease with systolic/diastolic disfunction. Lisinopril 40mg po daily Diet: Low carbohydrate diet. DVT prophylaxis Goals of care discussed with the patient > 35 min. Discussed plan of care with Dr. Sr Plan discussed with: Patient, Other (RN) My Orders My Orders Orders - SUSANA HARVEY RESIDENT Procedure Category Date Status Time Vancomycin,Trough LAB 04/11/25 Logged 14:00 Vancomycin 1gm/250ml PHA 04/10/25 In Process Kit 15:00 Vancomycin Per HIREN 04/10/25 In Process Pharmacy Protoc 14:16 Dietary Evaluation Review Comments: [facility] Diet Roger BID for promote healing Expected Outcomes/Goals: improved DM control, healed wounds Date of Service: Apr 11, 2025 Billing Provider: BESSIE SR MD Common Visit Codes: [id number] INP/OBS CARE(HIGH) SUSANA HARVEY RESIDENT Apr 11, 2025 11:14 BESSIE SR MD Apr 11, 2025 18:34
[2025-04-11] MEDS: VANCOMYCIN 1.25GM/250ML 250 ML IV SCH (21:31)
[2025-04-12] VITALS (8 sets, daily range): BP systolic 114–141; BP diastolic 70–85; PULSE 56–66; RESP 17–19; TEMP 97.9–98.6; O2SAT 95–98
[2025-04-12 06:43] LABS: Hematocrit 32.7 % (41.0-53.0); Hemoglobin 11.4 g/dL (13.5-17.5); Mean Corpuscular Hemoglobin 31.2 pg (28.0-32.0); Mean Corpuscular Volume 89.3 fL (80.0-100.0); Nucleated Red Blood Cells % 0.0 %
[2025-04-12 06:54] LABS: Anion Gap 11 (5-15); Carbon Dioxide 24 mmol/L (20-31); Chloride 103 mmol/L (98-107); Potassium 3.9 mmol/L (3.5-5.1); Sodium 138 mmol/L (136-145)
[2025-04-12 07:01] LABS: BUN/Creatinine Ratio 14.8 (10.0-20.0); Blood Urea Nitrogen 12 mg/dL (9-23); Calcium 8.6 mg/dL (8.7-10.4); Glucose 116 mg/dL (74-106)
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
[2025-04-13] VITALS (8 sets, daily range): BP systolic 133–154; BP diastolic 60–110; PULSE 53–91; RESP 12–19; TEMP 96.6–98.3; O2SAT 92–100
[2025-04-13 06:29] LABS: Nucleated Red Blood Cells % 0.1 %
[2025-04-13 06:33] LABS: Hematocrit 35.0 % (41.0-53.0); Hemoglobin 12.1 g/dL (13.5-17.5); Mean Corpuscular Hemoglobin 30.9 pg (28.0-32.0); Mean Corpuscular Volume 89.4 fL (80.0-100.0)
[2025-04-13 06:42] LABS: Chloride 104 mmol/L (98-107); Potassium 4.5 mmol/L (3.5-5.1); Sodium 140 mmol/L (136-145)
[2025-04-13 06:43] LABS: Anion Gap 10 (5-15); Calcium 9.1 mg/dL (8.7-10.4); Carbon Dioxide 26 mmol/L (20-31)
[2025-04-13 06:48] LABS: BUN/Creatinine Ratio 11.2 (10.0-20.0); Blood Urea Nitrogen 10 mg/dL (9-23); Glucose 103 mg/dL (74-106)
--- NOTE | 2025-04-13 07:38 | DVH ---
CHEST RADIOGRAPH Indication: PICC LINE PLACEMENT. Technique: Single frontal view of the chest was obtained Comparison: None FINDINGS: Lines and Tubes: Right PICC tip in the SVC Lungs: No focal consolidation. Pleura: No effusion. No pneumothorax. Cardiomediastinal contours: Unremarkable Bones: No acute osseous abnormality. IMPRESSION: No acute cardiopulmonary disease. ATAN LEDBETTER
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
--- NOTE | 2025-04-13 13:20 | DVHOP2 ---
Operative Report - 2 Report Details Date: 04/13/25 Preop Diagnosis: 1. Left foot abscess 2. Left foot osteomyelitis 3. Left foot necrotizing fasciitis 4. Left foot pain Postop Diagnosis: Same as preop Surgeon: Ambrosio Padron MD Anesthesiologist: See anesthesia Anesthesia: Mac Consent: The patient was informed of the risks and benefits of the procedure. These include but are not limited to complications of anesthesia, postoperative infection, incomplete relief of symptoms, recurrence of symptoms, damage to blood vessels, nerves and tendons, deep venous thrombosis, pulmonary embolism and possible need for repeat surgery in the future. Complications: None Estimated Blood Loss: Minimal Fluids: See anesthesia Findings: Consistent with the diagnosis Indications for Surgery: Worsening for foot wound Name of Procedure Performed 1. Left foot I&D to bone ([id number]) Procedure Details Procedure Details: PRE-PROCEDURE INFORMATION: In the pre-op holding area, the extremity to be operated on was clearly marked and the patient verified correct laterality of the marking. The patient was transferred to the OR table and placed in a supine position. A timeout was performed in which identification of the correct patient, procedure, location, and materials was done. The left foot and leg were prepped and draped in normal sterile fashion. DESCRIPTION OF PROCEDURE: Attention was directed to the left foot where previous incison was made and area of fluctuance was noted. An incision was made over this area and was deepened through blunt dissection. The incision was deepened to the level of abscess and bone. Care was taken to the dissection to avoid any neurovascular and tendinous structures. The incision was deepened to the bone, and the abscess appeared to be purulent fluid consistent with pus. The cortices of the bone was then removed with rongeur an all necrotic tissue. After the abscess was drained, the area was irrigated with 3 L normal saline using cysto tubing. The area was then inspected and any areas of tracking, especially along the tendons were also drained. The wound was packed with Betadine-soaked gauze and we will need to be closed at a later date. POSTOPERATIVE INFORMATION: The patient tolerated the above noted procedure and anesthesia well and was transferred to the PACU with vital signs stable, and vascular status intact with capillary refill intact to all digits. Patient will need PICC line and 6 weeks IV antibiotics. Recommend patient of wound vac. Follow up with me 1 week after discharge. Condition Good Disposition Still a Patient Visit Coding Podiatry Date of Service if different f: Apr 13, 2025 Billing Provider: AMBROSIO PADRON DPM Podiatry Common Visit Codes: PROCEDURE ONLY AMBROSIO PADRON DPM Apr 13, 2025 13:20
[2025-04-13] MEDS: BUPIVACAINE HCL 50 ML ONE (13:30)
[2025-04-13] MEDS ORDERED: fentaNYL CITRATE 100 MCG/2 ML VL ONE (13:31)
[2025-04-13] MEDS ORDERED: MIDAZOLAM HCL 2MG/2ML 2ml VIAL (1mg/ml) ONE (13:31)
[2025-04-13] MEDS ORDERED: PROPOFOL 10 MG/ML 20 ML IV ONE (13:45)
--- NOTE | 2025-04-13 18:47 | DVHPNRES ---
Progress Note Date Seen: Apr 13, 2025 Resident Creating Document: KRYSTYNA FOFANA RESIDENT Has the PT tested + for MRSA If YES, has PT been informed?: No Medical Necessity Reason Pt with a Central, PICC or Fol: No Subjective Review of Systems Ben Romeo is a 49-year-old male, with past medical history of hypertension, brain tumor, CVA with right-sided deficits (), dyslipidemia and chronic right foot ulcer. The patient came to the ED with a chief complaint of left and right leg erythema, edema and pain. The patient is a poor historian. The patient report that after CVA he had persistens right sided deficit since . The patient reports chronic ulcer on right foot near he has been having a ulcer and blister near the 5th digit of the left foot and has been seen the electrical engineering designer which prescribe antibiotics. The patient consulted the electrical engineering designer who advised to visit the ED for futher management of possible cellulitis. In the ED: WBC was 12.1, hemoglobin was 11.8. Rest of CMP was grossly unremarkable. Left foot CT scan showed deep plantar soft tissue ulceration with a associated soft tissue emphysema extending to under surface of the 5th metatarsal. Findings might be consistent with a osteomyelitis reason why electrical engineering designer was consulted for possible incision and drainage. We will start the patient on IV vancomycin and ceftriaxone. Past medical history: Hypertension, dyslipidemia, CVA 15 years ago Home medications. 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 Admission course: On 04/08/25, the patient was evaluated and examined at bedside, the patient reports no changes in his state, no new complaints were reported. VS: BP: 117/64mmHg, HR: 78bpm, afebrile, Labs: Hb: 10.8, ERS: 83. The patient continues with IV antibiotics: Clindamycin, Vancomycin and Ceftriaxone. Wound consult was placed. On 04/09/25, the patient was re-evaluated and examined at the bedside, he reports felling better, the pain level is 5-6/10. No new complaints. Vital signs, labs and chart was reviewed. The patient is on NPO due to a I/D 04/10/25, Dr. Rowell will perform the procedure. On 04/10/25, the patient was assessed and examined at the bedside, he reports felling better, the pain level is 2/10. I&D was performed and new wound cultures were taken. No new complaints. Vital signs, labs and chart was reviewed. The patient will have a second I/D on sunday04/13/25. The patient continues with IV antibiotics and pain management. We will continue following the progress of this patient. On 04/12/25, the patient was examined and evaluated at bedside, VS, labs and chart was reviewed. WBC trending down. VS stable, afebrile. Wound cultures were ordered again, the first samples lab reported that they did not received. The samples take during the first I/D were not processed. New orders for wound cultures were placed. The patient reports feeling well, pain on the left foot is 1/10, the patient reports no new complaints. We will continuing following up this patient progress. On 04/13/25, the patient was re-assessed at the bedside. VS, labs and chart was reviewed. VS stable, Labs wnl, WBC: 7.7. The patient is responding well to current therapy, he continues with IV antibiotics, ceftriaxone and vancomycin. The patient reports feeling well, no new complaints, his left foot pain is under controll. The will go to I&D today with Dr. Rowell. New wound cultures will be taken. We will follow up the patient's progress closely. ROS: Constitutional: No: Fever, Chills, Sweats, Weakness, Malaise, Other Eyes: No: Pain, Vision change, Conjunctivae inflammation, Eyelid inflammation, Other, Redness ENT: No: Ear pain, Ear discharge, Nose pain, Nose discharge, Nose congestion, Mouth pain, Mouth swelling, Throat pain, Throat swelling, Other Respiratory: No: Cough, Dry, Shortness of breath, SOB with excertion, Wheezing, Hemoptysis, Pleuritic Pain, Sputum, Wheezing, Other Cardiovascular: No: Chest Pain, Palpitations, Orthopnea, Paroxysmal Noc. Dyspnea, Edema, Lt Headedness, Other Gastrointestinal: No: Nausea, Vomiting, Abdominal Pain, Diarrhea, Constipation, Melena, Hematochezia, Other Genitourinary: No Dysuria, No Frequency, No Incontinence, No Hematuria, No Retention, No Other Musculoskeletal: right foot pain has improved; No: other, neck pain, shoulder pain, arm pain, back pain, hand pain, leg pain Neurological: No: Weakness, Numbness, Incoordination, Change in speech, Confusion, Seizures, Other Objective vital signs Vital Sign Date Time Temp Pulse Resp B/P (MAP) Pulse Ox O2 Delivery O2 Flow Rate FiO2 04/13/25 16:43 97.7 75 19 154/110 (125) 94 97.7 04/13/25 14:00 Room Air 0 96 Total Intake and Output 04/12/25 04/12/25 04/13/25 15:00 23:00 07:00 Intake Total 50 ml 1130 ml 1050 ml Output Total 960 ml 750 ml Balance 50 ml 170 ml 300 ml medications Current Medications Medications Dose Ordered Sig/Boris Route Start Time Stop Time Status Last Admin Dose Admin Morphine Sulfate 2 mg Q30M PRN IV 04/07/25 15:30 Acetaminophen 650 mg Q6HP PRN PO 04/07/25 15:30 Acetaminophen/ Hydrocodone Bitart 1 tab Q4HP PRN PO 04/07/25 15:30 Nitroglycerin 0.4 mg Q5MINP PRN SL 04/07/25 15:30 Ceftriaxone Sodium 50 ml @ 100 mls/hr DAILY IV 04/07/25 16:00 04/13/25 09:37 100 MLS/HR Diagnostic Test (Pha) 1 strip ACHS 04/07/25 17:00 04/13/25 17:24 1 STRIP Insulin Human Regular ACHS SC 04/07/25 17:00 04/11/25 21:36 2 UNITS Dextrose 50 ml UD PRN IV 04/07/25 16:00 Atorvastatin Calcium 40 mg HS PO 04/07/25 22:00 04/12/25 22:05 40 MG Lisinopril 40 mg DAILY PO 04/08/25 10:00 04/13/25 09:37 40 MG Vancomycin HCl 0 ml @ 0 mls/hr UD IV 04/08/25 09:30 Sodium Chloride 10 ml QSHIFT@,22 IV 04/09/25 22:00 04/13/25 09:37 10 ML Vancomycin HCl 250 ml @ 200 mls/hr Q8H IV 04/14/25 02:00 Examination General Appearance: Alert, Oriented X3, Cooperative, No acute distress HEENT: Atraumatic, PERRLA, EOMI, Mucous membrane moist/pink Respiratory: Clear to auscultation, Normal air movement Cardiovascular: Regular rate, Normal S1, Normal S2, No murmurs, no chest wall tenderness Abdominal: Normal bowel sounds, Soft, No tenderness, No hepatospenomegaly, No masses Extremities: Right foot with othopedic boot, foot cover with dressing with yellowish secretion, foul smell. Right lower limb edema, warmth and erythema is improving. Left leg erythema, no warmth or edema. Skin: No rashes, No breakdown, No significant lesion Neuro: Right upper limb strength 2/5, right lower limb strength 4/5, with sensory deficits of the right lower limb Psych/Mental Status: Mental status NL, Mood NL laboratory and microbiology Laboratory Tests 04/13/25 16:41 04/13/25 05:16 Test 04/13/25 05:16 Range/Units Serum Glucose 103 74-106 mg/dL Microbiology Date/Time Source Procedure Growth Status 04/07/25 12:40 Blood Blood Culture - Final NO GROWTH AFTER 5 DAYS OF INCUBATION. Complete Problem List/Assessment/Plan Problem List/Assessment/Plan #Cellulitis of right leg #Osteomyelitis of the right foot CT scan shows, moderate subcutaneous edema in the distal right lower extremity predominantly in the mid and lower aspect below the level of the right knee Wound culture wound consult Vancomycin 1gr IV daily Ceftriaxone 1 gr IV daily Surgical I&D today, 04/13/25. New wound cultures were ordered. #Ruled out DVT Doppler ultrasound of lower limb shows no DVT #Dyslipidemia Lipid panel Atorvastatin 40mg #History of DVT #History of CVA DVT prophylaxis #Hypertensive heart disease with systolic/diastolic disfunction. Lisinopril 40mg po daily Diet: Low carbohydrate diet. DVT prophylaxis Goals of care discussed with the patient > 35 min. Discussed plan of care with Dr. Nicholas Code status: Full code PCP: Marline Plan discussed with: Patient, the patient agrees with the plan. Plan discussed with: Patient Dietary Evaluation Review Comments: CCHO-45 Diet Roger BID for promote healing Expected Outcomes/Goals: improved DM control, healed wounds Date of Service: Apr 13, 2025 Billing Provider: BESSIE NICHOLAS MD Common Visit Codes: [id number] INP/OBS CARE(HIGH) KRYSTYNA FOFANA RESIDENT Apr 13, 2025 18:47 BESSIE NICHOLAS MD Apr 13, 2025 20:44
[2025-04-14] VITALS (8 sets, daily range): BP systolic 112–135; BP diastolic 72–89; PULSE 64–91; RESP 16–20; TEMP 97.5–98; O2SAT 94–100
[2025-04-14] MEDS: VANCOMYCIN 1.25GM/250ML 250 ML IV SCH (02:06)
[2025-04-14 07:19] LABS: Hematocrit 34.6 % (41.0-53.0); Hemoglobin 12.2 g/dL (13.5-17.5); Mean Corpuscular Hemoglobin 31.0 pg (28.0-32.0); Mean Corpuscular Volume 88.3 fL (80.0-100.0); Nucleated Red Blood Cells % 0.2 %
[2025-04-14 07:21] LABS: Chloride 105 mmol/L (98-107); Potassium 3.9 mmol/L (3.5-5.1); Sodium 139 mmol/L (136-145)
[2025-04-14 07:22] LABS: Anion Gap 11 (5-15); Calcium 8.9 mg/dL (8.7-10.4); Carbon Dioxide 23 mmol/L (20-31)
[2025-04-14 07:27] LABS: BUN/Creatinine Ratio 20.3 (10.0-20.0); Blood Urea Nitrogen 16 mg/dL (9-23)
[2025-04-14 07:33] LABS: Glucose 110 mg/dL (74-106)
--- NOTE | 2025-04-14 11:53 | DVHPNRES ---
Progress Note Date Seen: Apr 14, 2025 Resident Creating Document: KRYSTYNA FOFANA RESIDENT Has the PT tested + for MRSA If YES, has PT been informed?: No Medical Necessity Reason Pt with a Central, PICC or Fol: No Subjective Review of Systems Ben Romeo is a 49-year-old male, with past medical history of hypertension, brain tumor, CVA with right-sided deficits (), dyslipidemia and chronic right foot ulcer. The patient came to the ED with a chief complaint of left and right leg erythema, edema and pain. The patient is a poor historian. The patient report that after CVA he had persistens right sided deficit since . The patient reports chronic ulcer on right foot near he has been having a ulcer and blister near the 5th digit of the left foot and has been seen the rn registry which prescribe antibiotics. The patient consulted the rn registry who advised to visit the ED for futher management of possible cellulitis. In the ED: WBC was 12.1, hemoglobin was 11.8. Rest of CMP was grossly unremarkable. Left foot CT scan showed deep plantar soft tissue ulceration with a associated soft tissue emphysema extending to under surface of the 5th metatarsal. Findings might be consistent with a osteomyelitis reason why rn registry was consulted for possible incision and drainage. We will start the patient on IV vancomycin and ceftriaxone. Past medical history: Hypertension, dyslipidemia, CVA 15 years ago Home medications. 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 Admission course: On 04/08/25, the patient was evaluated and examined at bedside, the patient reports no changes in his state, no new complaints were reported. VS: BP: 117/64mmHg, HR: 78bpm, afebrile, Labs: Hb: 10.8, ERS: 83. The patient continues with IV antibiotics: Clindamycin, Vancomycin and Ceftriaxone. Wound consult was placed. On 04/09/25, the patient was re-evaluated and examined at the bedside, he reports felling better, the pain level is 5-6/10. No new complaints. Vital signs, labs and chart was reviewed. The patient is on NPO due to a I/D 04/10/25, Dr. Rowell will perform the procedure. On 04/10/25, the patient was assessed and examined at the bedside, he reports felling better, the pain level is 2/10. I&D was performed and new wound cultures were taken. No new complaints. Vital signs, labs and chart was reviewed. The patient will have a second I/D on sunday04/13/25. The patient continues with IV antibiotics and pain management. We will continue following the progress of this patient. On 04/12/25, the patient was examined and evaluated at bedside, VS, labs and chart was reviewed. WBC trending down. VS stable, afebrile. Wound cultures were ordered again, the first samples lab reported that they did not received. The samples take during the first I/D were not processed. New orders for wound cultures were placed. The patient reports feeling well, pain on the left foot is 1/10, the patient reports no new complaints. We will continuing following up this patient progress. On 04/13/25, the patient was re-assessed at the bedside. VS, labs and chart was reviewed. VS stable, Labs wnl, WBC: 7.7. The patient is responding well to current therapy, he continues with IV antibiotics, ceftriaxone and vancomycin. The patient reports feeling well, no new complaints, his left foot pain is under control. The will go to I&D today with Dr. Rowell. New wound cultures will be taken. We will follow up the patient's progress closely. On 04/14/25, the patient was re- evaluated at the bedside. VS, labs and chart was reviewed. VS stable, Labs wnl, WBC: 7.7. The patient is responding well to current therapy, he continues with IV antibiotics, ceftriaxone and vancomycin. The patient reports feeling well, no new complaints, his left foot pain is under control 1/10. went to I&D yesterday with Dr. Rowell. New wound cultures were taken, wound cultures report: rare epithelial cells, rare gram positive cocci in pairs, rare gram positive rods. We will follow up the patient's progress closely. ROS: Constitutional: No: Fever, Chills, Sweats, Weakness, Malaise, Other Eyes: No: Pain, Vision change, Conjunctivae inflammation, Eyelid inflammation, Other, Redness ENT: No: Ear pain, Ear discharge, Nose pain, Nose discharge, Nose congestion, Mouth pain, Mouth swelling, Throat pain, Throat swelling, Other Respiratory: No: Cough, Dry, Shortness of breath, SOB with excertion, Wheezing, Hemoptysis, Pleuritic Pain, Sputum, Wheezing, Other Cardiovascular: No: Chest Pain, Palpitations, Orthopnea, Paroxysmal Noc. Dyspnea, Edema, Lt Headedness, Other Gastrointestinal: No: Nausea, Vomiting, Abdominal Pain, Diarrhea, Constipation, Melena, Hematochezia, Other Genitourinary: No Dysuria, No Frequency, No Incontinence, No Hematuria, No Retention, No Other Musculoskeletal: right foot pain has improved; No: other, neck pain, shoulder pain, arm pain, back pain, hand pain, leg pain Neurological: No: Weakness, Numbness, Incoordination, Change in speech, Confusion, Seizures, Other Objective vital signs Vital Sign Date Time Temp Pulse Resp B/P (MAP) Pulse Ox O2 Delivery O2 Flow Rate FiO2 04/14/25 09:51 131/76 04/14/25 09:00 97.7 67 17 95 97.7 04/14/25 08:00 Room Air* 0 21 Total Intake and Output 04/13/25 04/13/25 04/14/25 15:00 23:00 07:00 Intake Total 20 ml 100 ml 950 ml Output Total 500 ml Balance 20 ml 100 ml 450 ml medications Current Medications Medications Dose Ordered Sig/Boris Route Start Time Stop Time Status Last Admin Dose Admin Morphine Sulfate 2 mg Q30M PRN IV 04/07/25 15:30 Acetaminophen 650 mg Q6HP PRN PO 04/07/25 15:30 Acetaminophen/ Hydrocodone Bitart 1 tab Q4HP PRN PO 04/07/25 15:30 Nitroglycerin 0.4 mg Q5MINP PRN SL 04/07/25 15:30 Ceftriaxone Sodium 50 ml @ 100 mls/hr DAILY IV 04/07/25 16:00 04/14/25 09:51 100 MLS/HR Diagnostic Test (Pha) 1 strip ACHS 04/07/25 17:00 04/14/25 11:10 1 STRIP Insulin Human Regular ACHS SC 04/07/25 17:00 04/14/25 11:10 3 UNITS Dextrose 50 ml UD PRN IV 04/07/25 16:00 Atorvastatin Calcium 40 mg HS PO 04/07/25 22:00 04/13/25 21:27 40 MG Lisinopril 40 mg DAILY PO 04/08/25 10:00 04/14/25 09:51 40 MG Vancomycin HCl 0 ml @ 0 mls/hr UD IV 04/08/25 09:30 Sodium Chloride 10 ml QSHIFT@10,22 IV 04/09/25 22:00 04/14/25 09:51 10 ML Vancomycin HCl 250 ml @ 200 mls/hr Q8H IV 04/14/25 02:00 04/14/25 10:55 200 MLS/HR Examination General Appearance: Alert, Oriented X3, Cooperative, No acute distress HEENT: Atraumatic, PERRLA, EOMI, Mucous membrane moist/pink Respiratory: Clear to auscultation, Normal air movement Cardiovascular: Regular rate, Normal S1, Normal S2, No murmurs, no chest wall tenderness Abdominal: Normal bowel sounds, Soft, No tenderness, No hepatospenomegaly, No masses Extremities: Right foot with othopedic boot, foot cover with dressing with yellowish secretion, foul smell. Right lower limb edema, warmth and erythema is improving. Left leg erythema, no warmth or edema. Skin: No rashes, No breakdown, No significant lesion Neuro: Right upper limb strength 2/5, right lower limb strength 4/5, with sensory deficits of the right lower limb Psych/Mental Status: Mental status NL, Mood NL laboratory and microbiology Laboratory Tests 04/14/25 04:54 Test 04/14/25 04:54 Range/Units Serum Glucose 110 H 74-106 mg/dL Microbiology Date/Time Source Procedure Growth Status 04/12/25 22:15 Foot Left Gram Stain - Final Complete 04/12/25 22:15 Foot Left Wound Culture - Final Complete 04/07/25 12:40 Blood Blood Culture - Final NO GROWTH AFTER 5 DAYS OF INCUBATION. Complete Problem List/Assessment/Plan Problem List/Assessment/Plan #Cellulitis of right leg #Osteomyelitis of the right foot CT scan shows, moderate subcutaneous edema in the distal right lower extremity predominantly in the mid and lower aspect below the level of the right knee Wound culture wound consult Vancomycin 1gr IV daily Ceftriaxone 1 gr IV daily 2nd Surgical I&D on, 04/13/25. Wound cultures reported: rare epithelial cells, rare gram positive cocci in pairs, rare gram positive rods #Ruled out DVT Doppler ultrasound of lower limb shows no DVT #Dyslipidemia Lipid panel Atorvastatin 40mg #History of DVT #History of CVA DVT prophylaxis #Hypertensive heart disease with systolic/diastolic disfunction. Lisinopril 40mg po daily Diet: Low carbohydrate diet. DVT prophylaxis Goals of care discussed with the patient > 35 min. Discussed plan of care with Dr. Nicholas Code status: Full code PCP: Marline Plan discussed with: Patient, the patient agrees with the plan. Plan discussed with: Patient Dietary Evaluation Review Comments: CCHO-45 Diet Roger BID for promote healing Expected Outcomes/Goals: improved DM control, healed wounds Date of Service: Apr 14, 2025 Billing Provider: BESSIE NICHOLAS MD Common Visit Codes: [id number] INP/OBS CARE(HIGH) KRYSTYNA FOFANA RESIDENT Apr 14, 2025 11:53 BESSIE NICHOLAS MD Apr 14, 2025 18:03
[2025-04-15] VITALS (8 sets, daily range): BP systolic 112–141; BP diastolic 59–84; PULSE 57–73; RESP 18–19; TEMP 97.8–98.1; O2SAT 94–99
[2025-04-15] MEDS: VANCOMYCIN 1GM/250ML KIT 250 ML IV SCH (04:50)
[2025-04-15 06:59] LABS: Hemoglobin 11.3 g/dL (13.5-17.5); Mean Corpuscular Volume 88.1 fL (80.0-100.0); Nucleated Red Blood Cells % 0.0 %
[2025-04-15 07:02] LABS: Hematocrit 32.8 % (41.0-53.0); Mean Corpuscular Hemoglobin 30.3 pg (28.0-32.0)
[2025-04-15 07:05] LABS: Anion Gap 10 (5-15); Carbon Dioxide 26 mmol/L (20-31); Chloride 105 mmol/L (98-107); Potassium 3.8 mmol/L (3.5-5.1); Sodium 141 mmol/L (136-145)
[2025-04-15 07:11] LABS: BUN/Creatinine Ratio 15.8 (10.0-20.0); Blood Urea Nitrogen 15 mg/dL (9-23); Calcium 8.4 mg/dL (8.7-10.4)
[2025-04-15 07:12] LABS: Glucose 118 mg/dL (74-106)
[2025-04-15] MEDS ORDERED: DAPTOmycin 0 MG in SODIUM CHL 0.9% 50 ML IV SCH (15:15)
[2025-04-15] MEDS ORDERED: VANCOMYCIN PER PHARMACY 0 MG IV SCH (17:45)
--- NOTE | 2025-04-15 18:14 | DVHPNRES ---
Progress Note Date Seen: Apr 15, 2025 Resident Creating Document: KRYSTYNA FOFANA RESIDENT Has the PT tested + for MRSA If YES, has PT been informed?: No Medical Necessity Reason Pt with a Central, PICC or Fol: No Subjective Review of Systems Ben Romeo is a 49-year-old male, with past medical history of hypertension, brain tumor, CVA with right-sided deficits (), dyslipidemia and chronic right foot ulcer. The patient came to the ED with a chief complaint of left and right leg erythema, edema and pain. The patient is a poor historian. The patient report that after CVA he had persistens right sided deficit since . The patient reports chronic ulcer on right foot near he has been having a ulcer and blister near the 5th digit of the left foot and has been seen the site engineer which prescribe antibiotics. The patient consulted the site engineer who advised to visit the ED for futher management of possible cellulitis. In the ED: WBC was 12.1, hemoglobin was 11.8. Rest of CMP was grossly unremarkable. Left foot CT scan showed deep plantar soft tissue ulceration with a associated soft tissue emphysema extending to under surface of the 5th metatarsal. Findings might be consistent with a osteomyelitis reason why site engineer was consulted for possible incision and drainage. We will start the patient on IV vancomycin and ceftriaxone. Past medical history: Hypertension, dyslipidemia, CVA 15 years ago Home medications. 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 Admission course: On 04/08/25, the patient was evaluated and examined at bedside, the patient reports no changes in his state, no new complaints were reported. VS: BP: 117/64mmHg, HR: 78bpm, afebrile, Labs: Hb: 10.8, ERS: 83. The patient continues with IV antibiotics: Clindamycin, Vancomycin and Ceftriaxone. Wound consult was placed. On 04/09/25, the patient was re-evaluated and examined at the bedside, he reports felling better, the pain level is 5-6/10. No new complaints. Vital signs, labs and chart was reviewed. The patient is on NPO due to a I/D 04/10/25, Dr. Rowell will perform the procedure. On 04/10/25, the patient was assessed and examined at the bedside, he reports felling better, the pain level is 2/10. I&D was performed and new wound cultures were taken. No new complaints. Vital signs, labs and chart was reviewed. The patient will have a second I/D on sunday04/13/25. The patient continues with IV antibiotics and pain management. We will continue following the progress of this patient. On 04/12/25, the patient was examined and evaluated at bedside, VS, labs and chart was reviewed. WBC trending down. VS stable, afebrile. Wound cultures were ordered again, the first samples lab reported that they did not received. The samples take during the first I/D were not processed. New orders for wound cultures were placed. The patient reports feeling well, pain on the left foot is 1/10, the patient reports no new complaints. We will continuing following up this patient progress. On 04/13/25, the patient was re-assessed at the bedside. VS, labs and chart was reviewed. VS stable, Labs wnl, WBC: 7.7. The patient is responding well to current therapy, he continues with IV antibiotics, ceftriaxone and vancomycin. The patient reports feeling well, no new complaints, his left foot pain is under control. The will go to I&D today with Dr. Rowell. New wound cultures will be taken. We will follow up the patient's progress closely. On 04/14/25, the patient was re-evaluated at the bedside. VS, labs and chart was reviewed. VS stable, Labs wnl, WBC: 7.7. The patient is responding well to current therapy, he continues with IV antibiotics, ceftriaxone and vancomycin. The patient reports feeling well, no new complaints, his left foot pain is under control 1/10. went to I&D yesterday with Dr. Rowell a wound vacuum was placed. New wound cultures were taken, wound cultures report: rare epithelial cells, rare gram positive cocci in pairs, rare gram positive rods. We will follow up the patient's progress closely. On 04/15/25, the patient was re- evaluated at the bedside. VS, labs and chart was reviewed. VS stable, Labs showed WBC 11.2. The patient continues with IV antibiotics, ceftriaxone and vancomycin. The wound cultures report positive enterococcus. The patient reports feeling well today, no new complaints, his left foot pain is under control 06/27. We will follow up this patient's progress closely. ROS: Constitutional: No: Fever, Chills, Sweats, Weakness, Malaise, Other Eyes: No: Pain, Vision change, Conjunctivae inflammation, Eyelid inflammation, Other, Redness ENT: No: Ear pain, Ear discharge, Nose pain, Nose discharge, Nose congestion, Mouth pain, Mouth swelling, Throat pain, Throat swelling, Other Respiratory: No: Cough, Dry, Shortness of breath, SOB with excertion, Wheezing, Hemoptysis, Pleuritic Pain, Sputum, Wheezing, Other Cardiovascular: No: Chest Pain, Palpitations, Orthopnea, Paroxysmal Noc. Dyspnea, Edema, Lt Headedness, Other Gastrointestinal: No: Nausea, Vomiting, Abdominal Pain, Diarrhea, Constipation, Melena, Hematochezia, Other Genitourinary: No Dysuria, No Frequency, No Incontinence, No Hematuria, No Retention, No Other Musculoskeletal: right foot pain has improved; No: other, neck pain, shoulder pain, arm pain, back pain, hand pain, leg pain Neurological: No: Weakness, Numbness, Incoordination, Change in speech, Confusion, Seizures, Other Objective vital signs Vital Sign Date Time Temp Pulse Resp B/P (MAP) Pulse Ox O2 Delivery O2 Flow Rate FiO2 04/15/25 17:00 98.0 73 19 124/84 (97) 99 98.0 04/15/25 08:00 Room Air* 0 21 Total Intake and Output 04/14/25 04/14/25 04/15/25 15:00 23:00 07:00 Intake Total 1000 ml 1360 ml 1750 ml Output Total 400 ml 2200 ml 700 ml Balance 600 ml -840 ml 1050 ml medications Current Medications Medications Dose Ordered Sig/Boris Route Start Time Stop Time Status Last Admin Dose Admin Morphine Sulfate 2 mg Q30M PRN IV 04/07/25 15:30 Acetaminophen 650 mg Q6HP PRN PO 04/07/25 15:30 Acetaminophen/ Hydrocodone Bitart 1 tab Q4HP PRN PO 04/07/25 15:30 Nitroglycerin 0.4 mg Q5MINP PRN SL 04/07/25 15:30 Diagnostic Test (Pha) 1 strip ACHS 04/07/25 17:00 04/15/25 17:00 1 STRIP Insulin Human Regular ACHS SC 04/07/25 17:00 04/15/25 06:27 2 UNITS Dextrose 50 ml UD PRN IV 04/07/25 16:00 Atorvastatin Calcium 40 mg HS PO 04/07/25 22:00 04/14/25 21:34 40 MG Lisinopril 40 mg DAILY PO 04/08/25 10:00 04/15/25 10:07 40 MG Sodium Chloride 10 ml QSHIFT@10,22 IV 04/09/25 22:00 04/15/25 10:08 10 ML Daptomycin / Sodium Chloride 50 ml @ 100 mls/hr DAILY IV 04/15/25 15:15 04/15/25 17:44 UNV Vancomycin HCl 0 ml @ 0 mls/hr PER PHARMACY IV 04/15/25 17:45 UNV Ceftriaxone Sodium 50 ml @ 100 mls/hr DAILY@09 IV 04/16/25 09:00 Examination General Appearance: Alert, Oriented X3, Cooperative, No acute distress HEENT: Atraumatic, PERRLA, EOMI, Mucous membrane moist/pink Respiratory: Clear to auscultation, Normal air movement Cardiovascular: Regular rate, Normal S1, Normal S2, No murmurs, no chest wall tenderness Abdominal: Normal bowel sounds, Soft, No tenderness, No hepatospenomegaly, No masses Extremities: Right foot with orthopedic boot, foot cover with dressing with yellowish secretion, with wound-vac. Right lower limb edema, warmth and erythema is improving. Left leg erythema, no warmth or edema. Skin: No rashes, No breakdown, No significant lesion Neuro: Right upper limb strength 2/5, right lower limb strength 4/5, with sensory deficits of the right lower limb Psych/Mental Status: Mental status NL, Mood NL laboratory and microbiology Laboratory Tests 04/15/25 06:15 Test 04/15/25 06:15 Range/Units Serum Glucose 118 H 74-106 mg/dL Microbiology Date/Time Source Procedure Growth Status 04/12/25 22:15 Foot Left Gram Stain - Final Resulted 04/12/25 22:15 Wound Culture - Preliminary Staph hominis subsp homins Resulted 04/07/25 12:40 Blood Blood Culture - Final NO GROWTH AFTER 5 DAYS OF INCUBATION. Complete Problem List/Assessment/Plan Problem List/Assessment/Plan #Cellulitis of right leg #Osteomyelitis of the right foot CT scan shows, moderate subcutaneous edema in the distal right lower extremity predominantly in the mid and lower aspect below the level of the right knee wound consult Vancomycin 1gr IV daily Ceftriaxone 1 gr IV daily 2nd Surgical I&D on, 04/13/25. Wound cultures reported:gram positive enterococcus #Ruled out DVT Doppler ultrasound of lower limb shows no DVT #Dyslipidemia Atorvastatin 40mg #History of DVT #History of CVA DVT prophylaxis #Hypertensive heart disease with systolic/diastolic disfunction. Lisinopril 40mg po daily Diet: Low carbohydrate diet. DVT prophylaxis Goals of care discussed with the patient > 35 min. Discussed plan of care with Dr. Nicholas Code status: Full code PCP: Marline Plan discussed with: Patient, the patient agrees with the plan. Plan discussed with: Patient My Orders My Orders Orders - KRYSTYNA FOFANA RESIDENT Procedure Category Date Status Time * [employer] CONS 04/15/25 Transmitted Consult Daptomycin (Cubicin) PHA 04/15/25 Logged 15:15 Complete Blood Count LAB 04/16/25 Verified 04:00 Basic Metabolic Panel LAB 04/16/25 Verified 04:00 Dietary Evaluation Review Comments: CCHO-45 Diet Roger BID for promote healing Expected Outcomes/Goals: improved DM control, healed wounds Date of Service: Apr 15, 2025 Billing Provider: BESSIE NICHOLAS MD Common Visit Codes: [id number] INP/OBS CARE(HIGH) KRYSTYNA FOFANA RESIDENT Apr 15, 2025 18:14 BESSIE NICHOLAS MD Apr 15, 2025 21:59
[2025-04-15] MEDS ORDERED: VANCOMYCIN 1GM/250ML KIT 250 ML IV SCH (21:00)
[2025-04-16] VITALS (7 sets, daily range): BP systolic 123–148; BP diastolic 70–92; PULSE 56–73; RESP 18; TEMP 97.7–98.3; O2SAT 97–99
[2025-04-16 06:26] LABS: Nucleated Red Blood Cells % 0.1 %
[2025-04-16 06:31] LABS: Hematocrit 34.7 % (41.0-53.0); Hemoglobin 12.0 g/dL (13.5-17.5); Mean Corpuscular Hemoglobin 30.4 pg (28.0-32.0); Mean Corpuscular Volume 88.2 fL (80.0-100.0)
[2025-04-16 06:38] LABS: Chloride 104 mmol/L (98-107); Potassium 3.9 mmol/L (3.5-5.1); Sodium 142 mmol/L (136-145)
[2025-04-16 06:39] LABS: Anion Gap 10 (5-15); Carbon Dioxide 28 mmol/L (20-31)
[2025-04-16 06:44] LABS: BUN/Creatinine Ratio 16.9 (10.0-20.0); Blood Urea Nitrogen 15 mg/dL (9-23); Glucose 93 mg/dL (74-106)
[2025-04-16 06:46] LABS: Calcium 8.6 mg/dL (8.7-10.4)
[2025-04-16] MEDS ORDERED: DAPTOmycin 0 MG in SODIUM CHL 0.9% 50 ML IV SCH (10:00)
[2025-04-16] MEDS: LINEZOLID 600MG/300ML 300 ML IV SCH (10:16)
[2025-04-16] MEDS ORDERED: METF-490 PO (11:55)
[2025-04-16] MEDS ORDERED: LISI40TA16 PO (11:55)
[2025-04-17] VITALS (7 sets, daily range): BP systolic 122–150; BP diastolic 70–91; PULSE 60–83; RESP 16–18; TEMP 97.8–98.9; O2SAT 96–99
--- NOTE | 2025-04-17 11:25 | DVHDSRES ---
Discharge Summary Date of Admission Resident Creating Document: KRYSTYNA FOFANA RESIDENT Apr 07, 2025 at 15:15 Date of Discharge: Apr 16, 2025 Admitting Diagnosis #Sepsis due to acute cellulitis of left leg #Acute osteomyelitis of the left foot Wounds: Left foot wound. Labs/Diagnostic Data: Laboratory Results Test 04/16/25 16:57 04/16/25 04:23 04/15/25 18:57 04/14/25 17:12 POC Glucose 101 mg/dl (70-106) White Blood Count 8.3 10^3/uL (4.4-10.8) Red Blood Count 3.93 10^6/uL (4.5-5.90) Hemoglobin 12.0 g/dL (13.5-17.5) Hematocrit 34.7 % (41.0-53.0) Mean Corpuscular Volume 88.2 fL (80.0-100.0) Mean Corpuscular Hemoglobin 30.4 pg (28.0-32.0) Mean Corpuscular Hemoglobin Concent 34.5 g/dL (32.0-36.0) Red Cell Distribution Width 13.9 % (11.8-14.3) Platelet Count 489 10^3/uL (140-450) Mean Platelet Volume 6.5 fL (6.9-10.8) Neutrophils (%) (Auto) 61.1 % (37.0-80.0) Lymphocytes (%) (Auto) 27.6 % (10.0-50.0) Monocytes (%) (Auto) 8.3 % (0.0-12.0) Eosinophils (%) (Auto) 2.3 % (0.0-7.0) Basophils (%) (Auto) 0.7 % (0.0-2.0) Neutrophils # (Auto) 5.1 10 ^3/uL (1.6-8.6) Lymphocytes # (Auto) 2.3 10 ^3/uL (0.4-5.4) Monocytes # (Auto) 0.7 10 ^3/uL (0-1.3) Eosinophils # (Auto) 0.2 10 ^3/uL (0-0.8) Basophils # (Auto) 0.1 10 ^3/uL (0-0.2) Nucleated Red Blood Cells 0.1 % Sodium Level 142 mmol/L (136-145) Potassium Level 3.9 mmol/L (3.5-5.1) Chloride Level 104 mmol/L (98-107) Carbon Dioxide Level 28 mmol/L (20-31) Anion Gap 10 (5-15) Blood Urea Nitrogen 15 mg/dL (9-23) Creatinine 0.89 mg/dL (0.700-1.30) Glomerular Filtration Rate Calc 104 mL/min (>90) BUN/Creatinine Ratio 16.9 (10.0-20.0) Serum Glucose 93 mg/dL (74-106) Calcium Level 8.6 mg/dL (8.7-10.4) Random Vancomycin Level 9.8 ug/mL (5-10) Vancomycin Level Trough 21.5 ug/mL (5-10) Test 04/09/25 05:51 04/08/25 04:49 04/07/25 12:40 Prothrombin Time 11.2 sec (9.3-11.8) Prothrombin Time INR 1.06 (0.9-1.15) Activated Partial Thromboplast Time 28.5 SEC (24.5-34.5) Total Bilirubin 0.7 mg/dL (0.2-1.0) Aspartate Amino Transferase (AST) 19 U/L (13-40) Alanine Aminotransferase (ALT) 15 U/L (7-40) Alkaline Phosphatase 81 U/L (46-116) Total Protein 7.5 g/dL (5.7-8.2) Albumin 4.3 g/dL (3.2-4.8) Hemoglobin A1c 5.5 % A1C (<5.7) Erythrocyte Sedimentation Rate 83 mm/hr (0-20) Lactic Acid Level 1.7 mmol/L (0.4-2.0) Iron Level 24 ug/dL (65-175) Total Iron Binding Capacity 272 ug/dL (250-425) Percent Iron Saturation 8.8 % (20-55) Ferritin 244.6 ng/mL (22-322) Triglycerides Level 90 mg/dL (< 150) Cholesterol Level 115 mg/dL (< 200) LDL Cholesterol 58 mg/dL (< 100) HDL Cholesterol 37 mg/dL (40-59) Vitamin B12 Level 598 pg/mL (211-911) Vitamin D 25-Hydroxy 35.8 ng/mL (30.0-100) Other Laboratory Tests 04/16/25 04:23 Brief Hx & Hospital Course: Ben Romeo is a 49-year-old male, with past medical history of hypertension, brain tumor, CVA with right-sided deficits (), dyslipidemia and chronic left foot ulcer. The patient came to the ED with a chief complaint of left and right leg erythema, edema and pain. The patient is a poor historian. The patient report that after CVA he had persistens right sided deficit since . The patient reports chronic ulcer and blister near the 5th digit of the left foot and has been seen the project control manager which prescribe antibiotics. The patient consulted the project control manager who advised to visit the ED for futher management of possible cellulitis. In the ED: WBC was 12.1, hemoglobin was 11.8. Rest of CMP was grossly unremarkable. Left foot CT scan showed deep plantar soft tissue ulceration with a associated soft tissue emphysema extending to under surface of the 5th metatarsal. Findings might be consistent with a osteomyelitis reason why project control manager was consulted for possible incision and drainage. We will start the patient on IV vancomycin and ceftriaxone. Past medical history: Hypertension, dyslipidemia, CVA 15 years ago Home medications. 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 Admission course: On 04/08/25, the patient was evaluated and examined at bedside, the patient reports no changes in his state, no new complaints were reported. VS: BP: 117/64mmHg, HR: 78bpm, afebrile, Labs: Hb: 10.8, ERS: 83. The patient continues with IV antibiotics: Clindamycin, Vancomycin and Ceftriaxone. Wound consult was placed. On 04/09/25, the patient was re-evaluated and examined at the bedside, he reports felling better, the pain level is 5-6/10. No new complaints. Vital signs, labs and chart was reviewed. The patient is on NPO due to a I/D 04/10/25, Dr. Rowell will perform the procedure. On 04/10/25, the patient was assessed and examined at the bedside, he reports felling better, the pain level is 2/10. I&D was performed and new wound cultures were taken. No new complaints. Vital signs, labs and chart was reviewed. The patient will have a second I/D on sunday04/13/25. The patient continues with IV antibiotics and pain management. We will continue following the progress of this patient. On 04/12/25, the patient was examined and evaluated at bedside, VS, labs and chart was reviewed. WBC trending down. VS stable, afebrile. Wound cultures were ordered again, the first samples lab reported that they did not received. The samples take during the first I/D were not processed. New orders for wound cultures were placed. The patient reports feeling well, pain on the left foot is 1/10, the patient reports no new complaints. We will continuing following up this patient progress. On 04/13/25, the patient was re-assessed at the bedside. VS, labs and chart was reviewed. VS stable, Labs wnl, WBC: 7.7. The patient is responding well to current therapy, he continues with IV antibiotics, ceftriaxone and vancomycin. The patient reports feeling well, no new complaints, his left foot pain is under control. The will go to I&D today with Dr. Rowell. New wound cultures will be taken. We will follow up the patient's progress closely. On 04/14/25, the patient was re- evaluated at the bedside. VS, labs and chart was reviewed. VS stable, Labs wnl, WBC: 7.7. The patient is responding well to current therapy, he continues with IV antibiotics, ceftriaxone and vancomycin. The patient reports feeling well, no new complaints, his left foot pain is under control 1/10. went to I&D yesterday with Dr. Rowell a wound vacuum was placed. New wound cultures were taken, wound cultures report: rare epithelial cells, rare gram positive cocci in pairs, rare gram positive rods. We will follow up the patient's progress closely. On 04/15/25, the patient was re-evaluated at the bedside. VS, labs and chart was reviewed. VS stable, Labs showed WBC 11.2. The patient continues with IV antibiotics, ceftriaxone and vancomycin. The wound cultures report positive enterococcus. The patient reports feeling well today, no new complaints, his left foot pain is under control 1/10. We will follow up this patient's progress closely. On 04/16/25, the patient was re-evaluated at the bedside. VS, labs and chart was reviewed. VS stable, Labs showed WBC 8.3. The patient continues with IV antibiotics, ceftriaxone and linezolid. The wound cultures report positive enterococcus sensitive to linezolid. The patient reports feeling well today, no new complaints, his left foot pain is under control 06/27. Due to clinical improvement, the patient is being discharge today home with home-health for wound care, wound vac care and IV antibiotics: Linezolid 600mg IV via PICC line for 6 week with CBC and BMP weekly. The patient will follow up with his PCP and podiatry as an out patient in 1 week. ROS: Constitutional: No: Fever, Chills, Sweats, Weakness, Malaise, Other Eyes: No: Pain, Vision change, Conjunctivae inflammation, Eyelid inflammation, Other, Redness ENT: No: Ear pain, Ear discharge, Nose pain, Nose discharge, Nose congestion, Mouth pain, Mouth swelling, Throat pain, Throat swelling, Other Respiratory: No: Cough, Dry, Shortness of breath, SOB with excertion, Wheezing, Hemoptysis, Pleuritic Pain, Sputum, Wheezing, Other Cardiovascular: No: Chest Pain, Palpitations, Orthopnea, Paroxysmal Noc. Dyspnea, Edema, Lt Headedness, Other Gastrointestinal: No: Nausea, Vomiting, Abdominal Pain, Diarrhea, Constipation, Melena, Hematochezia, Other Genitourinary: No Dysuria, No Frequency, No Incontinence, No Hematuria, No Retention, No Other Musculoskeletal: Left foot pain has improved 06/27; No: other, neck pain, shoulder pain, arm pain, back pain, hand pain, leg pain Neurological: No: Weakness, Numbness, Incoordination, Change in speech, Confusion, Seizures, Other Physical exam: General Appearance: Alert, Oriented X3, Cooperative, No acute distress HEENT: Atraumatic, PERRLA, EOMI, Mucous membrane moist/pink Respiratory: Clear to auscultation, Normal air movement Cardiovascular: Regular rate, Normal S1, Normal S2, No murmurs, no chest wall tenderness Abdominal: Normal bowel sounds, Soft, No tenderness, No hepatospenomegaly, No masses Extremities: Left foot with clean dressing, with wound-vac. Left lower limb edema, warmth and erythema has resolved. Right leg no erythema, no warmth or edema. Skin: as above. No rashes, No breakdown, No significant lesion Neuro: Right upper limb strength 2/5, right lower limb strength 4/5, with sensory deficits of the right lower limb Psych/Mental Status: Mental status NL, Mood NL Consults/Reason for consult Podiatry: Right foot osteomyelitis Operations or Procedures PROCEDURE(s): LFTCT - CT L FOOT WO CONTRAST REASON: pain and infection ORDER NUMBER(s): [id number], ACCESSION NUMBER(s): [id number] EXAM: CT CT L FOOT WO CONTRAST INDICATION: pain and infection TECHNIQUE: Axial images of left foot without contrast have been obtained along with coronal and sagittal reformatted images. All CT scans at this facility use dose modulation, iterative reconstruction, and/or weight based dosing when appropriate to reduce radiation dose to as low as reasonably achievable. COMPARISON: None FINDINGS: BONES: No CT evidence of an acute fracture or aggressive osseous lesion. No abnormal osseous erosion or sclerosis of the 5th metatarsal. No visualized periosteal reaction. Maintain elevated suspicion for osteomyelitis given the deep penetrating soft tissue ulceration. Correlate with ESR /CRP. Consider follow-up MRI with and without contrast MUSCLES: Mild diffuse fatty infiltration of the intrinsic musculature JOINT SPACES: No joint effusion. TENDONS/LIGAMENTS: Intact. OTHER: Deep plantar soft tissue ulceration with the associated soft tissue emphysema extending to the undersurface of the 5th metatarsal IMPRESSION: 1. Deep plantar soft tissue ulceration with the associated soft tissue emphysema extending to the undersurface of the 5th metatarsal. 2. No CT evidence of an acute fracture or aggressive osseous lesion. 3. No abnormal osseous erosion or sclerosis of the 5th metatarsal. 4. No visualized periosteal reaction. 5. Maintain elevated suspicion for osteomyelitis given the deep penetrating soft tissue ulceration. 6. Correlate with ESR /CRP. 7. Consider follow-up MRI with and without contrast. EDURE(s): LLEAD - Lt Low Ext Art Duplex REASON: R/O SEVERE PAD ORDER NUMBER(s): [id number], ACCESSION NUMBER(s): [id number] Left LOWER EXTREMITY ARTERIAL DOPPLER ULTRASOUND CLINICAL HISTORY: R/O SEVERE PAD, hypertension, smoking TECHNIQUE: Multiple grayscale, color Doppler and spectral Doppler ultrasound images were obtained of left leg for evaluation of the peripheral arteries. COMPARISON: None FINDINGS: The left common femoral (APPLICATIONS DEVELOPMENT ANALYST), upper deep femoral, superficial femoral (SFA), popliteal, anterior tibial (TANG), posterior tibial (MACHINERY CLEANER) were evaluated on this exam. The distal posterior tibial artery, dorsalis pedis artery, and anterior tibial artery not visualized due to bandaging. Grayscale images demonstrate no significant atherosclerotic plaque. Left: Color doppler images demonstrate no visible stenosis or occlusion. Spectral analysis demonstrates normal, high-resistive blood flow. Systolic acceleration is normal. No significant change in velocity to suggest high-grade stenosis. Velocities (in cm/sec): Common femoral artery: 118; proximal deep femoral artery: 79; superficial femoral artery proximal 102, mid 107, distal 115; popliteal: 139; posterior tibial: 176 Mild subcutaneous edema in the left calf. IMPRESSION: 1. No high-grade arterial stenosis or occlusion in the left lower extremity. 2. There appears to be 30-49% stenosis of the posterior tibial artery based on velocity. 3. Subcutaneous edema in the left calf. EDURE(s): LLDVT - LT Lower DVT REASON: R/O DVT ORDER NUMBER(s): [id number], ACCESSION NUMBER(s): [id number] CLINICAL HISTORY: Left lower extremity swelling and redness R/O DVT TECHNIQUE: Color and duplex doppler imaging of the left lower extremity veins was performed. Vessel compression if possible was also performed. WID: COMPARISON: None FINDINGS: Enlarged left inguinal lymph node measuring 3.2 cm. Left common femoral vein: Normal compressibility and flow. Left femoral vein: Normal compressibility and flow. Left popliteal vein: Normal compressibility and flow. IMPRESSION: 1. NO SONOGRAPHIC EVIDENCE FOR DEEP VENOUS THROMBOSIS IN THE LEFT LOWER EXTREMITY VEINS. EDURE(s): CXRP - CHEST PORTABLE REASON: PICC LINE PLACEMENT. ORDER NUMBER(s): [id number], ACCESSION NUMBER(s): [id number] CHEST RADIOGRAPH Indication: PICC LINE PLACEMENT. Technique: Single frontal view of the chest was obtained Comparison: None FINDINGS: Lines and Tubes: Right PICC tip in the SVC Lungs: No focal consolidation. Pleura: No effusion. No pneumothorax. Cardiomediastinal contours: Unremarkable Bones: No acute osseous abnormality. IMPRESSION: No acute cardiopulmonary disease. Operative Report - 2 Report Details Date: 04/13/25 Preop Diagnosis: 1. Left foot abscess 2. Left foot osteomyelitis 3. Left foot necrotizing fasciitis 4. Left foot pain Postop Diagnosis: Same as preop Surgeon: Musa Rowell MD Anesthesiologist: See anesthesia Anesthesia: Mac Consent: The patient was informed of the risks and benefits of the procedure. These include but are not limited to complications of anesthesia, postoperative infection, incomplete relief of symptoms, recurrence of symptoms, damage to blood vessels, nerves and tendons, deep venous thrombosis, pulmonary embolism and possible need for repeat surgery in the future. Complications: None Estimated Blood Loss: Minimal Fluids: See anesthesia Findings: Consistent with the diagnosis Indications for Surgery: Worsening for foot wound Name of Procedure Performed 1. Left foot I&D to bone (31796) Procedure Details Procedure Details: PRE-PROCEDURE INFORMATION: In the pre-op holding area, the extremity to be operated on was clearly marked and the patient verified correct laterality of the marking. The patient was transferred to the OR table and placed in a supine position. A timeout was performed in which identification of the correct patient, procedure, location, and materials was done. The left foot and leg were prepped and draped in normal sterile fashion. DESCRIPTION OF PROCEDURE: Attention was directed to the left foot where previous incison was made and area of fluctuance was noted. An incision was made over this area and was deepened through blunt dissection. The incision was deepened to the level of abscess and bone. Care was taken to the dissection to avoid any neurovascular and tendinous structures. The incision was deepened to the bone, and the abscess appeared to be purulent fluid consistent with pus. The cortices of the bone was then removed with rongeur an all necrotic tissue. After the abscess was drained, the area was irrigated with 3 L normal saline using cysto tubing. The area was then inspected and any areas of tracking, especially along the tendons were also drained. The wound was packed with Betadine-soaked gauze and we will need to be closed at a later date. POSTOPERATIVE INFORMATION: The patient tolerated the above noted procedure and anesthesia well and was transferred to the PACU with vital signs stable, and vascular status intact with capillary refill intact to all digits. Patient will need PICC line and 6 weeks IV antibiotics. Recommend patient of wound vac. Follow up with me 1 week after discharge. Condition Good Visit Coding Podiatry Date of Service if different f: Apr 13, 2025 Billing Provider: MUSA ROWELL DPM Podiatry Common Visit Codes: PROCEDURE ONLY MUSA ROWELL DPM Apr 13, 2025 13:20 DICTATED BY:MUSA ROWELL DPM DICTATED DATE/TIME:04/13/25 1320 ELECTRONICALLY SIGNED BY:MUSA ROWELL DPM 04/13/25 1334 Condition at Discharge: Stable Final Diagnosis/Problems List #Sepsis due to acute cellulitis of left leg #Acute osteomyelitis of the left foot #Acute Left foot abscess #Acute Left foot necrotizing fasciitis #Chronic Dyslipidemia #Possible acute DVT #Chronic CVA #Chronic DM2 with hyperglycemia #Chronic Hypertensive heart disease with systolic/diastolic failure. Discharge Disposition: Home with Health Services (And wound care) SNF Discharge Will this Physician continue t: No Discharge Instruct/Medications Diet: Consistent carbohydrate Activity: No Restrictions, As Tolerated Follow Up/Referral: F/U with D/C clinic in 1 week F/U with Dr. Rowell podiatry in 1 week Medications: Linezolid 600mg BID for 6 weeks until 05/29/25 (via PICC line, patient already has it) Left foot Wound vac and home-health for wound vac care CBC and BMP weekly f/u results with pcp Scheduled Lisinopril (Lisinopril), 1 TAB PO DAILY Metformin Hydrochloride (Metformin Hcl Er), 1 TAB PO BID Discharge Statement: "Patient was advised to return to the ER or call 911 if any headaches, dizziness, shortness of breath, chest pain, abdominal pain, bleeding, fevers, or worsening of medical condition. Patient was counseled about treatment plan, medications, possible side effects, patientverbalized understanding. All questions were answered to the best of my ability. This discharge took greater then 30 minutes in planning, reviewing documentation, counseling the patient, and discussing with other team members." ASSESSMENT ASSESSMENT Assessment #Sepsis due to acute celulitis of left leg #Acute osteomyelitis of the left foot #Acute Left foot abscess #Acute Left foot necrotizing fasciitis #Chronic Dyslipidemia #Possible acute DVT #Chronic CVA #Chronic DM2 with hyperglycemia #Chronic Hypertensive heart disease with systolic/diastolic failure. Goals of care discussed with the patient > 35 min. Discussed plan of care with Dr. Sr Code status: Full code PCP: Marline Plan discussed with: Patient, the patient agrees with the discharge plan. Date of Service: Apr 16, 2025 Billing Provider: BESSIE SR MD Common Visit Codes: 04732-TDH/OBS DISCH DAY >30min KRYSTYNA FOFANA RESIDENT Apr 16, 2025 20:23 BESSIE SR MD Apr 16, 2025 22:58
--- NOTE | 2025-04-17 14:37 | DVHPNRES ---
Progress Note Date Seen: Apr 17, 2025 Resident Creating Document: KRYSTYNA FOFANA RESIDENT Has the PT tested + for MRSA If YES, has PT been informed?: No Medical Necessity Reason Pt with a Central, PICC or Fol: No Subjective Review of Systems Ben Romeo is a 49-year-old male, with past medical history of hypertension, brain tumor, CVA with right-sided deficits (), dyslipidemia and chronic left foot ulcer. The patient came to the ED with a chief complaint of left and right leg erythema, edema and pain. The patient is a poor historian. The patient report that after CVA he had persistens right sided deficit since . The patient reports chronic ulcer and blister near the 5th digit of the left foot and has been seen the calender machine operator helper which prescribe antibiotics. The patient consulted the calender machine operator helper who advised to visit the ED for futher management of possible cellulitis. In the ED: WBC was 12.1, hemoglobin was 11.8. Rest of CMP was grossly unremarkable. Left foot CT scan showed deep plantar soft tissue ulceration with a associated soft tissue emphysema extending to under surface of the 5th metatarsal. Findings might be consistent with a osteomyelitis reason why calender machine operator helper was consulted for possible incision and drainage. We will start the patient on IV vancomycin and ceftriaxone. Past medical history: Hypertension, dyslipidemia, CVA 15 years ago Home medications. 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 Admission course: On 04/08/25, the patient was evaluated and examined at bedside, the patient reports no changes in his state, no new complaints were reported. VS: BP: 117/64mmHg, HR: 78bpm, afebrile, Labs: Hb: 10.8, ERS: 83. The patient continues with IV antibiotics: Clindamycin, Vancomycin and Ceftriaxone. Wound consult was placed. On 04/09/25, the patient was re-evaluated and examined at the bedside, he reports felling better, the pain level is 5-6/10. No new complaints. Vital signs, labs and chart was reviewed. The patient is on NPO due to a I/D 04/10/25, Dr. Rowell will perform the procedure. On 04/10/25, the patient was assessed and examined at the bedside, he reports felling better, the pain level is 2/10. I&D was performed and new wound cultures were taken. No new complaints. Vital signs, labs and chart was reviewed. The patient will have a second I/D on sunday04/13/25. The patient continues with IV antibiotics and pain management. We will continue following the progress of this patient. On 04/12/25, the patient was examined and evaluated at bedside, VS, labs and chart was reviewed. WBC trending down. VS stable, afebrile. Wound cultures were ordered again, the first samples lab reported that they did not received. The samples take during the first I/D were not processed. New orders for wound cultures were placed. The patient reports feeling well, pain on the left foot is 1/10, the patient reports no new complaints. We will continuing following up this patient progress. On 04/13/25, the patient was re-assessed at the bedside. VS, labs and chart was reviewed. VS stable, Labs wnl, WBC: 7.7. The patient is responding well to current therapy, he continues with IV antibiotics, ceftriaxone and vancomycin. The patient reports feeling well, no new complaints, his left foot pain is under control. The will go to I&D today with Dr. Rowell. New wound cultures will be taken. We will follow up the patient's progress closely. On 04/14/25, the patient was re- evaluated at the bedside. VS, labs and chart was reviewed. VS stable, Labs wnl, WBC: 7.7. The patient is responding well to current therapy, he continues with IV antibiotics, ceftriaxone and vancomycin. The patient reports feeling well, no new complaints, his left foot pain is under control 1/10. went to I&D yesterday with Dr. Rowell a wound vacuum was placed. New wound cultures were taken, wound cultures report: rare epithelial cells, rare gram positive cocci in pairs, rare gram positive rods. We will follow up the patient's progress closely. On 04/15/25, the patient was re-evaluated at the bedside. VS, labs and chart was reviewed. VS stable, Labs showed WBC 11.2. The patient continues with IV antibiotics, ceftriaxone and vancomycin. The wound cultures report positive enterococcus. The patient reports feeling well today, no new complaints, his left foot pain is under control 1/10. We will follow up this patient's progress closely. On 04/16/25, the patient was re-evaluated at the bedside. VS, labs and chart was reviewed. VS stable, Labs showed WBC 8.3. The patient continues with IV antibiotics, ceftriaxone and linezolid. The wound cultures report positive enterococcus sensitive to linezolid. The patient reports feeling well today, no new complaints, his left foot pain is under control 06/27. Due to clinical improvement, the patient is being discharge today home with home-health for wound care, wound vac care and IV antibiotics: Linezolid 600mg IV via PICC line for 6 week with CBC and BMP weekly. The patient will follow up with his PCP and podiatry as an out patient in 1 week. On04/17, the patient is waiting for wound-vac to be delivered to the hospital. Wound-vac and IV medication have been approved today by the patient's insurance. Home-health for wound care, wound-vac and IV antibiotics is being arranged by social worker palliative care. ROS: Constitutional: No: Fever, Chills, Sweats, Weakness, Malaise, Other Eyes: No: Pain, Vision change, Conjunctivae inflammation, Eyelid inflammation, Other, Redness ENT: No: Ear pain, Ear discharge, Nose pain, Nose discharge, Nose congestion, Mouth pain, Mouth swelling, Throat pain, Throat swelling, Other Respiratory: No: Cough, Dry, Shortness of breath, SOB with excertion, Wheezing, Hemoptysis, Pleuritic Pain, Sputum, Wheezing, Other Cardiovascular: No: Chest Pain, Palpitations, Orthopnea, Paroxysmal Noc. Dyspnea, Edema, Lt Headedness, Other Gastrointestinal: No: Nausea, Vomiting, Abdominal Pain, Diarrhea, Constipation, Melena, Hematochezia, Other Genitourinary: No Dysuria, No Frequency, No Incontinence, No Hematuria, No Retention, No Other Musculoskeletal: Left foot pain has improved 06/27; No: other, neck pain, shoulder pain, arm pain, back pain, hand pain, leg pain Neurological: No: Weakness, Numbness, Incoordination, Change in speech, Confusion, Seizures, Other Objective vital signs Vital Sign Date Time Temp Pulse Resp B/P (MAP) Pulse Ox O2 Delivery O2 Flow Rate FiO2 04/17/25 09:15 128/87 04/17/25 08:35 98.9 70 18 96 98.9 04/17/25 08:00 Room Air* 0 21 Total Intake and Output 04/16/25 04/16/25 04/17/25 15:00 23:00 07:00 Intake Total 586 ml 400 ml 400 ml Output Total 1100 ml 800 ml Balance 586 ml -700 ml -400 ml medications Current Medications Medications Dose Ordered Sig/Boris Route Start Time Stop Time Status Last Admin Dose Admin Acetaminophen 650 mg Q6HP PRN PO 04/07/25 15:30 Nitroglycerin 0.4 mg Q5MINP PRN SL 04/07/25 15:30 Diagnostic Test (Pha) 1 strip ACHS 04/07/25 17:00 04/17/25 06:20 1 STRIP Insulin Human Regular ACHS SC 04/07/25 17:00 04/16/25 21:25 2 UNITS Dextrose 50 ml UD PRN IV 04/07/25 16:00 Atorvastatin Calcium 40 mg HS PO 04/07/25 22:00 04/16/25 21:25 40 MG Lisinopril 40 mg DAILY PO 04/08/25 10:00 04/17/25 09:15 40 MG Sodium Chloride 10 ml QSHIFT@10,22 IV 04/09/25 22:00 04/16/25 21:25 10 ML Ceftriaxone Sodium 50 ml @ 100 mls/hr DAILY@09 IV 04/16/25 09:00 04/17/25 09:14 100 MLS/HR Linezolid 300 ml @ 150 mls/hr Q12HR IV 04/16/25 10:00 04/16/25 21:25 150 MLS/HR Examination Physical exam: General Appearance: Alert, Oriented X3, Cooperative, No acute distress HEENT: Atraumatic, PERRLA, EOMI, Mucous membrane moist/pink Respiratory: Clear to auscultation, Normal air movement Cardiovascular: Regular rate, Normal S1, Normal S2, No murmurs, no chest wall tenderness Abdominal: Normal bowel sounds, Soft, No tenderness, No hepatospenomegaly, No masses Extremities: Left foot with clean dressing, with wound-vac. Left lower limb edema, warmth and erythema has resolved. Right leg no erythema, no warmth or edema. Skin: as above. No rashes, No breakdown, No significant lesion Neuro: Hx or CVA with right sided deficit: Right upper limb strength 2/5, right lower limb strength 4/5, with sensory deficits of the right lower limb Psych/Mental Status: Mental status NL, Mood NL laboratory and microbiology Laboratory Tests 04/16/25 04:23 Test 04/16/25 04:23 Range/Units Serum Glucose 93 74-106 mg/dL Microbiology Date/Time Source Procedure Growth Status 04/12/25 22:15 Foot Left Gram Stain - Final Complete 04/12/25 22:15 Wound Culture - Final Staph hominis subsp homins Enterococcus faecalis Complete 04/07/25 12:40 Blood Blood Culture - Final NO GROWTH AFTER 5 DAYS OF INCUBATION. Complete Problem List/Assessment/Plan Problem List/Assessment/Plan #Sepsis due to acute celulitis of left leg #Acute osteomyelitis of the left foot #Acute Left foot abscess #Acute Left foot necrotizing fasciitis CT scan shows, moderate subcutaneous edema in the distal right lower extremity predominantly in the mid and lower aspect below the level of the right knee wound consult Linezolid 600mg IV BID daily Ceftriaxone 1 gr IV daily 2nd Surgical I&D on, 04/13/25. Wound cultures reported:gram positive enterococcus #Acute DVT, ruled out Doppler ultrasound of lower limb shows no DVT #Chronic DM2 with hyperglycemia Insulin sliding scale #Chronic Dyslipidemia Atorvastatin 40mg #History of DVT #Old Chronic CVA with right deficit DVT prophylaxis #Chronic Hypertensive heart disease with systolic/diastolic failure Lisinopril 40mg po daily Diet: Low carbohydrate diet. DVT prophylaxis Goals of care discussed with the patient > 35 min. Discussed plan of care with Dr. Nicholas Code status: Full code PCP: Marline Plan discussed with: Patient, the patient agrees with the plan. Plan discussed with: Patient, Other (Overcoil Stepper) Dietary Evaluation Review Comments: [facility] Diet Roger BID for promote healing Expected Outcomes/Goals: improved DM control, healed wounds Date of Service: Apr 17, 2025 Billing Provider: BESSIE NICHOLAS MD Common Visit Codes: [id number] INP/OBS CARE(HIGH) KRYSTYNA FOFANA RESIDENT Apr 17, 2025 14:37 BESSIE NICHOLAS MD Apr 17, 2025 23:37
[2025-04-18 01:00] VITALS: BP 128/66; PULSE 61; RESP 20; TEMP 97.9; O2SAT 96
[2025-04-18 05:00] VITALS: BP 121/80; PULSE 59; RESP 20; TEMP 97.9; O2SAT 97
[2025-04-18 06:28] LABS: Anion Gap 6 (5-15); Carbon Dioxide 29 mmol/L (20-31); Chloride 105 mmol/L (98-107); Potassium 4.5 mmol/L (3.5-5.1); Sodium 140 mmol/L (136-145)
[2025-04-18 06:29] LABS: Calcium 9.1 mg/dL (8.7-10.4)
[2025-04-18 06:34] LABS: BUN/Creatinine Ratio 15.9 (10.0-20.0); Blood Urea Nitrogen 14 mg/dL (9-23); Glucose 113 mg/dL (74-106)
[2025-04-18 08:00] VITALS: PULSE 55; RESP 17; O2SAT 95
[2025-04-18 08:58] VITALS: BP 123/77; PULSE 55; RESP 17; TEMP 97.8; O2SAT 95
[2025-04-18 13:00] VITALS: BP 137/79; PULSE 55; RESP 18; TEMP 98.1; O2SAT 100
[2025-04-18 14:52] VITALS: BP 123/77; PULSE 68; RESP 18; TEMP 98; O2SAT 95
--- NOTE | 2025-04-18 16:02 | DVHPNRES ---
Progress Note Date Seen: Apr 18, 2025 Resident Creating Document: KRYSTYNA FOFANA RESIDENT Has the PT tested + for MRSA If YES, has PT been informed?: No Medical Necessity Reason Pt with a Central, PICC or Fol: No Subjective Review of Systems Ben Romeo is a 49-year-old male, with past medical history of hypertension, brain tumor, CVA with right-sided deficits (), dyslipidemia and chronic left foot ulcer. The patient came to the ED with a chief complaint of left and right leg erythema, edema and pain. The patient is a poor historian. The patient report that after CVA he had persistens right sided deficit since . The patient reports chronic ulcer and blister near the 5th digit of the left foot and has been seen the tile presser which prescribe antibiotics. The patient consulted the tile presser who advised to visit the ED for futher management of possible cellulitis. In the ED: WBC was 12.1, hemoglobin was 11.8. Rest of CMP was grossly unremarkable. Left foot CT scan showed deep plantar soft tissue ulceration with a associated soft tissue emphysema extending to under surface of the 5th metatarsal. Findings might be consistent with a osteomyelitis reason why tile presser was consulted for possible incision and drainage. We will start the patient on IV vancomycin and ceftriaxone. Past medical history: Hypertension, dyslipidemia, CVA 15 years ago Home medications. 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 Admission course: On 04/08/25, the patient was evaluated and examined at bedside, the patient reports no changes in his state, no new complaints were reported. VS: BP: 117/64mmHg, HR: 78bpm, afebrile, Labs: Hb: 10.8, ERS: 83. The patient continues with IV antibiotics: Clindamycin, Vancomycin and Ceftriaxone. Wound consult was placed. On 04/09/25, the patient was re-evaluated and examined at the bedside, he reports felling better, the pain level is 5-6/10. No new complaints. Vital signs, labs and chart was reviewed. The patient is on NPO due to a I/D 04/10/25, Dr. Rowell will perform the procedure. On 04/10/25, the patient was assessed and examined at the bedside, he reports felling better, the pain level is 2/10. I&D was performed and new wound cultures were taken. No new complaints. Vital signs, labs and chart was reviewed. The patient will have a second I/D on sunday04/13/25. The patient continues with IV antibiotics and pain management. We will continue following the progress of this patient. On 04/12/25, the patient was examined and evaluated at bedside, VS, labs and chart was reviewed. WBC trending down. VS stable, afebrile. Wound cultures were ordered again, the first samples lab reported that they did not received. The samples take during the first I/D were not processed. New orders for wound cultures were placed. The patient reports feeling well, pain on the left foot is 1/10, the patient reports no new complaints. We will continuing following up this patient progress. On 04/13/25, the patient was re-assessed at the bedside. VS, labs and chart was reviewed. VS stable, Labs wnl, WBC: 7.7. The patient is responding well to current therapy, he continues with IV antibiotics, ceftriaxone and vancomycin. The patient reports feeling well, no new complaints, his left foot pain is under control. The will go to I&D today with Dr. Rowell. New wound cultures will be taken. We will follow up the patient's progress closely. On 04/14/25, the patient was re- evaluated at the bedside. VS, labs and chart was reviewed. VS stable, Labs wnl, WBC: 7.7. The patient is responding well to current therapy, he continues with IV antibiotics, ceftriaxone and vancomycin. The patient reports feeling well, no new complaints, his left foot pain is under control 1/10. went to I&D yesterday with Dr. Rowell a wound vacuum was placed. New wound cultures were taken, wound cultures report: rare epithelial cells, rare gram positive cocci in pairs, rare gram positive rods. We will follow up the patient's progress closely. On 04/15/25, the patient was re-evaluated at the bedside. VS, labs and chart was reviewed. VS stable, Labs showed WBC 11.2. The patient continues with IV antibiotics, ceftriaxone and vancomycin. The wound cultures report positive enterococcus. The patient reports feeling well today, no new complaints, his left foot pain is under control 1/10. We will follow up this patient's progress closely. On 04/16/25, the patient was re-evaluated at the bedside. VS, labs and chart was reviewed. VS stable, Labs showed WBC 8.3. The patient continues with IV antibiotics, ceftriaxone and linezolid. The wound cultures report positive enterococcus sensitive to linezolid. The patient reports feeling well today, no new complaints, his left foot pain is under control 06/27. Due to clinical improvement, the patient is being discharge today home with home-health for wound care, wound vac care and IV antibiotics: Linezolid 600mg IV via PICC line for 6 week with CBC and BMP weekly. The patient will follow up with his PCP and podiatry as an out patient in 1 week. On04/17, the patient is waiting for wound-vac to be delivered to the hospital. Wound-vac and IV medication have been approved today by the patient's insurance. Home-health for wound care, wound-vac and IV antibiotics is being arranged by marriage and family social worker. On 04/18/25, the patient was re-evaluated at the bedside. VS, labs and chart was reviewed. VS stable, The patient continues with IV antibiotics, ceftriaxone and linezolid. The wound cultures report positive enterococcus sensitive to linezolid. The patient reports feeling well today, no new complaints, his left foot pain is under control 06/27. Due to clinical improvement, the discharge order was placed, the patient was awaiting on delivery of wound-vac that will be delivery today at the hospital, the patient will be going home with home-health for wound care, wound vac care and IV antibiotics: Linezolid 600mg IV via PICC line for 6 week with CBC and BMP weekly. The patient will follow up with his PCP and podiatry as an out patient in 1 week. ROS: Constitutional: No: Fever, Chills, Sweats, Weakness, Malaise, Other Eyes: No: Pain, Vision change, Conjunctivae inflammation, Eyelid inflammation, Other, Redness ENT: No: Ear pain, Ear discharge, Nose pain, Nose discharge, Nose congestion, Mouth pain, Mouth swelling, Throat pain, Throat swelling, Other Respiratory: No: Cough, Dry, Shortness of breath, SOB with excertion, Wheezing, Hemoptysis, Pleuritic Pain, Sputum, Wheezing, Other Cardiovascular: No: Chest Pain, Palpitations, Orthopnea, Paroxysmal Noc. Dyspnea, Edema, Lt Headedness, Other Gastrointestinal: No: Nausea, Vomiting, Abdominal Pain, Diarrhea, Constipation, Melena, Hematochezia, Other Genitourinary: No Dysuria, No Frequency, No Incontinence, No Hematuria, No Retention, No Other Musculoskeletal: Left foot pain has improved 06/27; No: other, neck pain, shoulder pain, arm pain, back pain, hand pain, leg pain Neurological: No: Weakness, Numbness, Incoordination, Change in speech, Confusion, Seizures, Other Objective vital signs Vital Sign Date Time Temp Pulse Resp B/P (MAP) Pulse Ox O2 Delivery O2 Flow Rate FiO2 04/18/25 14:52 98.0 68 18 95 04/18/25 13:00 137/79 (98) 04/18/25 08:00 Room Air* 0 21 Total Intake and Output 04/17/25 04/17/25 04/18/25 15:00 23:00 07:00 Intake Total 826 ml 600 ml 750 ml Output Total 780 ml 900 ml Balance 826 ml -180 ml -150 ml medications Current Medications Medications Dose Ordered Sig/Boris Route Start Time Stop Time Status Last Admin Dose Admin Acetaminophen 650 mg Q6HP PRN PO 04/07/25 15:30 Nitroglycerin 0.4 mg Q5MINP PRN SL 04/07/25 15:30 Diagnostic Test (Pha) 1 strip ACHS 04/07/25 17:00 04/18/25 11:30 1 STRIP Insulin Human Regular ACHS SC 04/07/25 17:00 04/16/25 21:25 2 UNITS Dextrose 50 ml UD PRN IV 04/07/25 16:00 Atorvastatin Calcium 40 mg HS PO 04/07/25 22:00 04/17/25 21:33 40 MG Lisinopril 40 mg DAILY PO 04/08/25 10:00 04/17/25 09:15 40 MG Sodium Chloride 10 ml QSHIFT@ IV 04/09/25 22:00 04/18/25 15:33 10 ML Ceftriaxone Sodium 50 ml @ 100 mls/hr DAILY@09 IV 04/16/25 09:00 04/18/25 09:12 100 MLS/HR Linezolid 300 ml @ 150 mls/hr Q12HR IV 04/16/25 10:00 04/18/25 09:12 150 MLS/HR Examination General Appearance: Alert, Oriented X3, Cooperative, No acute distress HEENT: Atraumatic, PERRLA, EOMI, Mucous membrane moist/pink Respiratory: Clear to auscultation, Normal air movement Cardiovascular: Regular rate, Normal S1, Normal S2, No murmurs, no chest wall tenderness Abdominal: Normal bowel sounds, Soft, No tenderness, No hepatospenomegaly, No masses Extremities: Left foot with clean dressing, with wound-vac. Left lower limb edema, warmth and erythema has resolved. Right leg no erythema, no warmth or edema. Skin: as above. No rashes, No breakdown, No significant lesion Neuro: Hx or CVA with right sided deficit: Right upper limb strength 2/5, right lower limb strength 4/5, with sensory deficits of the right lower limb Psych/Mental Status: Mental status NL, Mood NL laboratory and microbiology Laboratory Tests 04/18/25 05:54 04/16/25 04:23 Test 04/18/25 05:54 Range/Units Serum Glucose 113 H 74-106 mg/dL Microbiology Date/Time Source Procedure Growth Status 04/12/25 22:15 Foot Left Gram Stain - Final Complete 04/12/25 22:15 Wound Culture - Final Staph hominis subsp homins Enterococcus faecalis Complete 04/07/25 12:40 Blood Blood Culture - Final NO GROWTH AFTER 5 DAYS OF INCUBATION. Complete Problem List/Assessment/Plan Problem List/Assessment/Plan #Sepsis due to acute celulitis of left leg #Acute osteomyelitis of the left foot #Acute Left foot abscess #Acute Left foot necrotizing fasciitis CT scan shows, moderate subcutaneous edema in the distal right lower extremity predominantly in the mid and lower aspect below the level of the right knee wound consult Linezolid 600mg IV BID daily Ceftriaxone 1 gr IV daily 2nd Surgical I&D on, 04/13/25. Wound cultures reported:gram positive enterococcus #Acute DVT, ruled out Doppler ultrasound of lower limb shows no DVT #Chronic DM2 with hyperglycemia Insulin sliding scale #Chronic Dyslipidemia Atorvastatin 40mg #History of DVT #Old Chronic CVA with right deficit DVT prophylaxis #Chronic Hypertensive heart disease with systolic/diastolic failure Lisinopril 40mg po daily Discharge home with home-health for wound care, wound vac care and IV antibiotics: Linezolid 600mg IV via PICC line for 6 week with CBC and BMP weekly. The patient will follow up with his PCP and podiatry as an out patient in 1 week. Diet: Low carbohydrate diet. DVT prophylaxis Goals of care discussed with the patient > 35 min. Discussed plan of care with Dr. Nicholas Code status: Full code PCP: Marline Plan discussed with: Patient, the patient agrees with the discharge plan. Plan discussed with: Patient, Other (Caregiver) Dietary Evaluation Review Comments: [facility]-45 Diet Roger BID for promote healing Expected Outcomes/Goals: improved DM control, healed wounds Date of Service: Apr 18, 2025 Billing Provider: BESSIE NICHOLAS MD Common Visit Codes: [id number] INP/OBS CARE(HIGH) KRYSTYNA FOFANA RESIDENT Apr 18, 2025 16:01 BESSIE NICHOLAS MD Apr 18, 2025 23:59
== END 2025-04-18 16:00 | disposition home health service (06) | DRG 720 ==
LOC: ER 12:01 → OVERFLOW 15:15 → ER 15:22 → WEST WING 22:10
PROVIDERS: ADMIT Internal Medicine; ATTEND Internal Medicine
PROC: 02HV33Z Insertion of Infusion Device into Superior Vena Cava, Percutaneous Approach (ICD-10-PCS; 2025-04-09)
PROC: B548ZZA Ultrasonography of Superior Vena Cava, Guidance (ICD-10-PCS; 2025-04-09)
PROC: 0Y9N0ZZ Drainage of Left Foot, Open Approach (ICD-10-PCS; principal; 2025-04-09 12:57)
PROC: 0Y9N0ZZ Drainage of Left Foot, Open Approach (ICD-10-PCS; 2025-04-13)
DX: A41.81 Sepsis due to Enterococcus (principal); M72.6 Necrotizing fasciitis; T79.7XXA Traumatic subcutaneous emphysema, initial encounter; I69.351 Hemiplegia and hemiparesis following cerebral infarction affecting right dominant side; M86.172 Other acute osteomyelitis, left ankle and foot; M86.8X7 Other osteomyelitis, ankle and foot; I11.0 Hypertensive heart disease with heart failure; I69.320 Aphasia following cerebral infarction; L02.612 Cutaneous abscess of left foot; E11.65 Type 2 diabetes mellitus with hyperglycemia; I50.42 Chronic combined systolic (congestive) and diastolic (congestive) heart failure; L03.115 Cellulitis of right lower limb; E11.69 Type 2 diabetes mellitus with other specified complication; L03.116 Cellulitis of left lower limb; E78.5 Hyperlipidemia, unspecified; X58.XXXA Exposure to other specified factors, initial encounter; L97.529 Non-pressure chronic ulcer of other part of left foot with unspecified severity; Z79.899 Other long term (current) drug therapy; Y93.89 Activity, other specified; Y92.89 Other specified places as the place of occurrence of the external cause; Y99.8 Other external cause status
CPT/HCPCS: 36415; 36569; 71045; 73700; 76937; 80048; 80053; 80061; 80202; 82306; 82565; 82607; 82728; 82962; 83036; 83540; 83550; 83605; 85025; 85610; 85652; 85730; 87040; 87077; 87081; 87186; 87205; 93005; 93926; 93971; G0378; J1100; J1815; J2250; J2704; J3490

== ENCOUNTER 2025-04-20 14:59 | Inpatient (IN) | payer MEDICAID ==
[~2025-04-20] VITALS: Ht 188 cm; Wt 122.6 kg
[~2025-04-20 14:59] MED LIST: LISI40TA16 PO; METF-490 PO
--- NOTE | 2025-04-20 15:53 | ED.PDOC ---
History of Present Illness HPI Comments 49 year old male with PMHx CVA, HTN, HLD, DM presents to the ED with a chief complaint of PICC line replacement onset today. Patient states he had a PICC line placed on RT arm, is currently on antibiotics for foot wounds, currently has wound vac in place. Patient states he woke up this morning, PICC line was completely out, states it occurred during his sleep. Denies fall, injury, nausea, vomiting, diarrhea, fever, chills, chest pain, shortness of breath. No other symptoms or modifying factors present at this time. Chief Complaint: Tube Replacement Time Seen by MD: 15:30 Reviewed Notes: Medications, Allergies Allergies: Coded Allergies: Codeine (Verified Allergy, Unknown, 04/07/25) Peanut-containing Drug Products (Verified Allergy, Unknown, 04/07/25) Penicillins (Verified Allergy, Unknown, 09/11/23) Home Meds Active Scripts Lisinopril (Lisinopril) 40 Mg Tab, 1 TAB PO DAILY for 30 Days, #30 TAB 3 Refills Prov:SUSANA HARVEY RESIDENT 04/16/25 Metformin Hydrochloride (METFORMIN HCL ER) 1,000 Mg Tab, 1 TAB PO BID for 30 Days, #60 TAB 3 Refills Prov:SUSANA HARVEY RESIDENT 04/16/25 Information Source: Patient Mode of Arrival: Ambulatory Severity: Moderate Timing: Hours Duration: Since onset Prehospital treatment: None Past Medical History PAST MEDICAL HISTORY: CVA, DM, High Lipids, HTN Surgical History: Denies all surgeries Family History Family History: Reviewed,noncontributory to illness, Unknown Social History Smoker: Non-Smoker Alcohol: Denies ETOH Use Drugs: Denies Drug Use Lives In: Home Constitutional: denies: chills, diaphoresis, fatigue, fever, malaise, sweats, weakness, others EENTM: denies: blurred vision, double vision, ear bleeding, ear discharge, ear drainage, ear pain, ear ringing, eye pain, eye redness, hearing loss, mouth pain, mouth swelling, nasal discharge, nose bleeding, nose congestion, nose pain, photophobia, tearing, throat pain, throat swelling, voice changes, others Respiratory: denies: cough, hemoptysis, orthopnea, SOB at rest, shortness of breath, SOB with excertion, stridor, wheezing, others Cardiovascular: denies: chest pain, dizzy spells, diaphoresis, Dyspnea on exertion, edema, irregular heart beat, left arm pain, lightheadedness, palpitations, PND, syncope, others Gastrointestinal: denies: abdomen distended, abdominal pain, blood streaked bowels, constipated, diarrhea, dysphagia, difficulty swallowing, hematemesis, melena, nausea, poor appetite, poor fluid intake, rectal bleeding, rectal pain, vomiting, others Genitourinary: denies: burning, dysuria, flank pain, frequency, hematuria, incontinence, penile discharge, penile sore, pain, testicle pain, testicle swelling, urgency, others Neurological: denies: dizziness, fainting, headache, left sided numbness, left sided weakness, numbness, paresthesia, pre-existing deficit, right sided numbness, right sided weakness, seizure, speech problems, tingling, tremors, weakness, others Musculoskeletal: reports: others (PICC line RT arm); denies: back pain, gout, joint pain, joint swelling, muscle pain, muscle stiffness, neck pain Integumetry: denies: bruises, change in color, change in hair/nails, dryness, laceration, lesions, lumps, rash, wounds, others Allergic/Immunocompromised: denies: Difficulty Healing, Frequent Infections, Hives, Itching, others Hematologic/Lymphatic: denies: anemia, blood clots, easy bleeding, easy bruising, swollen glands, others Endocrine: denies: excessive hunger, excessive sweating, excessive thirst, excessive urination, flushing, intolerance to cold, intolerance to heat, unexplained weight gain, unexplained weight loss, others Psychiatric: denies: anxiety, bipolar disorder, depression, hopeless, panic disorder, schizophrenia, sleepless, suicidal, others All Other Systems: Reviewed and Negative Physical Exam General Appearance: No Apparent Distress, Normal HEENT: Normal ENT Inspection, Pharynx Normal, TMs Normal Neck: Full Range of Motion, Non-Tender, Normal, Normal Inspection Respiratory: Chest Non-Tender, Lungs Clear, No Accessory Muscle Use, No Respiratory Distress, Normal Breath Sounds Cardiovascular: No Edema, No JVD, No Murmur, No Gallop, Normal Peripheral Pulses, Regular Rate/Rhythm Breast Exam: Deferred Gastrointestinal: No Organomegaly, Non Tender, No Pulsatile Mass, Normal Bowel Sounds, Soft Genitalia: Deferred Pelvic: Deferred Rectal: Deferred Extremities: No calf tenderness, Normal capillary refill, Normal inspection, Normal range of motion, Non-tender, No pedal edema Musculoskeletal : Apperance: Normal Neurologic: Alert, 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 Was a procedure done?: No Differential Dx Considerations may include: Occluded PICC line, PICC line complications, X-Ray, Labs, Meds, VS Vital Signs Date Time Temp Pulse Resp B/P (MAP) Pulse Ox O2 Delivery O2 Flow Rate FiO2 04/20/25 17:08 98.4 83 16 106/70 (82) 98 98.4 04/20/25 15:01 97.9 97 19 130/82 97 97.9 Lab Test 04/20/25 15:42 Range/Units White Blood Count 11.6 #H 4.4-10.8 10^3/uL Red Blood Count 3.78 L 4.5-5.90 10^6/uL Hemoglobin 11.5 L 13.5-17.5 g/dL Hematocrit 33.4 L 41.0-53.0 % Mean Corpuscular Volume 88.3 80.0-100.0 fL Mean Corpuscular Hemoglobin 30.4 28.0-32.0 pg Mean Corpuscular Hemoglobin Concent 34.4 32.0-36.0 g/dL Red Cell Distribution Width 14.7 H 11.8-14.3 % Platelet Count 472 H 140-450 10^3/uL Mean Platelet Volume 6.8 L 6.9-10.8 fL Neutrophils (%) (Auto) 72.9 37.0-80.0 % Lymphocytes (%) (Auto) 16.0 10.0-50.0 % Monocytes (%) (Auto) 9.2 0.0-12.0 % Eosinophils (%) (Auto) 1.1 0.0-7.0 % Basophils (%) (Auto) 0.8 0.0-2.0 % Neutrophils # (Auto) 8.5 1.6-8.6 10 ^3/uL Lymphocytes # (Auto) 1.9 0.4-5.4 10 ^3/uL Monocytes # (Auto) 1.1 0-1.3 10 ^3/uL Eosinophils # (Auto) 0.1 0-0.8 10 ^3/uL Basophils # (Auto) 0.1 0-0.2 10 ^3/uL Nucleated Red Blood Cells 0.0 % Prothrombin Time 15.2 H 9.3-11.8 sec Prothrombin Time INR 1.49 H 0.9-1.15 Activated Partial Thromboplast Time 42.7 H 24.5-34.5 SEC X-Ray, Labs, Meds, VS Comment New PICC line reinserted. Time of 1ST Reevaluation: 16:00 Reevaluation 1ST: Unchanged Patient Education/Counseling: Diagnosis, Treatment, Prognosis, Need For Follow Up (Continue antibiotics as prescribed previously. We will follow up with PCP next available appointment with.) Family Education/Counseling: No Family Present SEPSIS Sepsis Screen Date sepsis recognized/suspect: Apr 20, 2025 Time Sepsis recognized/suspect: 1501 Recent Procedure: No On Antibiotic Therapy: No Respiratory Rate >20: No Heart Rate >90: No Temp<36 C (96.8 F) or >38.3 C: No SBP <90 or MAP <65 mmHG: No New Acute Mental Status Change: No Is the patient on CPAP, BIPAP,: No Physician Orders * Picc Line Consult (04/20/25 15:32) Vital Signs Date Time Temp Pulse Resp B/P (MAP) Pulse Ox O2 Delivery O2 Flow Rate FiO2 04/20/25 17:08 98.4 83 16 106/70 (82) 98 98.4 04/20/25 15:01 97.9 97 19 130/82 97 97.9 Laboratory Tests Test 04/20/25 15:42 White Blood Count 11.6 10^3/uL (4.4-10.8) #H Departure 1 Departure Time of Disposition: 17:48 Impression: Primary Impression: Status post PICC central line placement Disposition: 01 HOME / SELF CARE / HOMELESS Condition: Stable Discharged With: Self Critical Care Note Critical Care Time?: No Stability Stability form required: No Heart Score Heart Score: Heart Score Response (Comments) Value History N/A 0 EKG N/A 0 Age N/A 0 Risk Factors N/A 0 Troponin N/A 0 Total 0 I personally scribed for JAVI TORREZ ([email or web address]) on 04/20/25 at 15:52. Electronically submitted by Lena Rogers ([email or web address]). JAVI TORREZ Apr 20, 2025 15:52
[2025-04-20 15:57] LABS: Hematocrit 33.4 % (41.0-53.0); Hemoglobin 11.5 g/dL (13.5-17.5); Mean Corpuscular Hemoglobin 30.4 pg (28.0-32.0); Mean Corpuscular Volume 88.3 fL (80.0-100.0); Nucleated Red Blood Cells % 0.0 %
[2025-04-20 16:11] LABS: INR 1.49 (0.9-1.15); Partial Thromboplastin Time 42.7 SEC (24.5-34.5); Prothrombin Time 15.2 sec (9.3-11.8)
[2025-04-20 17:30] VITALS: PULSE 73; RESP 18; O2SAT 100
[2025-04-20] MEDS: LIDOCAINE 1% (LOCAL ANESTH.) PF 5ml SDV ID ONE (18:11)
--- NOTE | 2025-04-20 18:47 | DVH ---
CHEST RADIOGRAPH Indication: picc placement Technique: XY CHEST XRAY 1 VIEW Comparison: None FINDINGS: The cardiac silhouette is unremarkable. The lungs demonstrate no pulmonary airspace consolidation. Th e pulmonary vasculature is unremarkable. There is no pleural effusion. There is no pneumothorax. Left PICC line tip projects over the expected region of the left brachiocephalic vein. Recommend rep ositioning. IMPRESSION: No pulmonary airspace consolidation.
--- NOTE | 2025-04-20 19:29 | DVH ---
EXAM: XY CHEST PORTABLE HISTORY: LEFT SIDED PICC EVAL TECHNIQUE: 1 view of the chest COMPARISON: XY CHEST XRAY 1 VIEW on DOS: 04/20/25 FINDINGS/IMPRESSION: LUNGS: No pleural effusion, consolidation, or pneumothorax. MEDIASTINUM: Unremarkable. BONES: No acute osseous abnormality. OTHER: None.
[2025-04-20] MEDS ORDERED: ACETAMINOPHEN 325 MG TAB PO PRN (19:45)
[2025-04-20] MEDS ORDERED: DEXTROSE (50%) 50ML SYRG IV PRN (19:45)
[2025-04-20] MEDS ORDERED: ONDANSETRON HCL 4 MG/2 ML VIAL IV PRN (19:45)
[2025-04-20 20:13] LABS: Alanine Aminotransferase 25 U/L (7-40); Albumin 4.4 g/dL (3.2-4.8); Alkaline Phosphatase 82 U/L (46-116); Anion Gap 12 (5-15); BUN/Creatinine Ratio 23.5 (10.0-20.0); Bilirubin, Total 0.9 mg/dL (0.2-1.0); Calcium 9.3 mg/dL (8.7-10.4); Carbon Dioxide 23 mmol/L (20-31); Chloride 103 mmol/L (98-107); Potassium 4.0 mmol/L (3.5-5.1); Sodium 138 mmol/L (136-145); Total Protein 7.6 g/dL (5.7-8.2)
[2025-04-20 20:18] LABS: Blood Urea Nitrogen 47 mg/dL (9-23); Glucose 141 mg/dL (74-106)
[2025-04-20 21:15] VITALS: BP 104/41; PULSE 80; RESP 17; TEMP 97.9; O2SAT 80
[2025-04-20 21:18] VITALS: BP 104/41; PULSE 80; RESP 16; TEMP 97.9; O2SAT 100
[2025-04-20] MEDS ORDERED: LINEZOLID 600MG/300ML 300 ML IV SCH (22:00)
[2025-04-20] MEDS: InsuLIN REG 1unit/0.01ml Soln (100units/ml) SC SCH (22:00)
[2025-04-20] MEDS: LINEZOLID 600MG/300ML 300 ML IV SCH (22:12)
[2025-04-20] MEDS: ACCU-CHEK COMFORT CURVE STRIP VI SCH (22:12)
[2025-04-20] MEDS: SODIUM CHLOR 0.9% PF (SALINE LOCK) 10ML VIAL/SYR IV SCH (22:32)
--- NOTE | 2025-04-21 00:49 | DVHHP2 ---
History of Present Illness Reason for Visit: PICC line malfunction History of Present Illness 49-year-old male presents for evaluation of PICC line malfunction. Patient reports his PICC line becoming partially dislodged yesterday. Of note, patient has a history of left foot osteomyelitis/abscess with a wound VAC sent home with a PICC line with IV Zyvox to be given by home health. Patient has had x3 PICC lines replaced in the past three weeks. PICC line was replaced once again in the emergency department and patient requested to use the restroom prior to being discharged. When he returned to his bed patient's arm was noted to be bloody and swollen, PICC line was dislodged once again. Patient is being admitted for possible tunneled line catheter or Port-A-Cath. Past Medical History CVA with right-sided deficits, diabetes mellitus, hypertension, dyslipidemia Past Surgical History Left foot debridement with wound VAC placement Family History Noncontributory Smoke: No ALCOHOL: none Drugs: None Lives: with Family Review of Systems Review of Systems Review of systems are currently negative otherwise addressed in HPI. Allergies: Coded Allergies: Codeine (Verified Allergy, Unknown, 04/07/25) Peanut-containing Drug Products (Verified Allergy, Unknown, 04/07/25) Penicillins (Verified Allergy, Unknown, 09/11/23) Medications Current Medications Medications Dose Ordered Sig/Boris Route Start Time Stop Time Status Last Admin Dose Admin Sodium Chloride 10 ml QSHIFT@10,22 IV 04/20/25 22:00 04/20/25 22:32 10 ML Ondansetron HCl 4 mg Q4HP PRN IV 04/20/25 19:45 Acetaminophen 650 mg Q6HP PRN PO 04/20/25 19:45 Diagnostic Test (Pha) 1 strip ACHS 04/20/25 22:00 04/20/25 22:12 1 STRIP Insulin Human Regular ACHS SC 04/20/25 22:00 Dextrose 50 ml UD PRN IV 04/20/25 19:45 Lisinopril 20 mg DAILY PO 04/21/25 10:00 Linezolid 300 ml @ 150 mls/hr Q12HR IV 04/20/25 22:00 Cancel Linezolid 300 ml @ 150 mls/hr Q12HR IV 04/20/25 22:00 04/20/25 22:12 150 MLS/HR Exam Vital Signs Vital Signs Date Time Temp Pulse Resp B/P (MAP) Pulse Ox O2 Delivery O2 Flow Rate FiO2 04/20/25 21:18 Room Air* 0 21 04/20/25 21:18 97.9 80 16 104/41 (62) 100 97.9 Exam Gen: 49-year-old male in mild distress Skin: Warm, dry, normal color and texture, no rash. HEENT: Normocephalic atraumatic, mucous membranes moist and pink. Neck: Cervical and supraclavicular nodes normal without enlargement, trachea is midline, thyroid gland is normal without masses. Pulmonary: Clear to auscultation and percussion bilaterally. Cardiac: Regular rate and rhythm. No murmur Abdomen: Soft, nontender, nondistended, bowel sounds present all 4 quadrants, no guarding, no rigidity, no organomegaly. Extremities: No cyanosis, clubbing, left foot with wound VAC Neuro: Cranial nerves II through XII grossly intact, normal affect and speech, no focal motor deficits. Labs/Xrays ORDERING PHYSICIAN: JAVI TORREZ PROCEDURE(s): CXR1 - CHEST XRAY 1 VIEW REASON: picc placement ORDER NUMBER(s): [id number], ACCESSION NUMBER(s): [id number] CHEST RADIOGRAPH Indication: picc placement Technique: XY CHEST XRAY 1 VIEW Comparison: None FINDINGS: The cardiac silhouette is unremarkable. The lungs demonstrate no pulmonary airspace consolidation. The pulmonary vasculature is unremarkable. There is no pleural effusion. There is no pneumothorax. Left PICC line tip projects over the expected region of the left brachiocephalic vein. Recommend repositioning. IMPRESSION: No pulmonary airspace consolidation. Labs Test 04/20/25 21:57 04/20/25 15:42 Range/Units POC Glucose 124 H 70-106 mg/dl White Blood Count 11.6 #H 4.4-10.8 10^3/uL Red Blood Count 3.78 L 4.5-5.90 10^6/uL Hemoglobin 11.5 L 13.5-17.5 g/dL Hematocrit 33.4 L 41.0-53.0 % Mean Corpuscular Volume 88.3 80.0-100.0 fL Mean Corpuscular Hemoglobin 30.4 28.0-32.0 pg Mean Corpuscular Hemoglobin Concent 34.4 32.0-36.0 g/dL Red Cell Distribution Width 14.7 H 11.8-14.3 % Platelet Count 472 H 140-450 10^3/uL Mean Platelet Volume 6.8 L 6.9-10.8 fL Neutrophils (%) (Auto) 72.9 37.0-80.0 % Lymphocytes (%) (Auto) 16.0 10.0-50.0 % Monocytes (%) (Auto) 9.2 0.0-12.0 % Eosinophils (%) (Auto) 1.1 0.0-7.0 % Basophils (%) (Auto) 0.8 0.0-2.0 % Neutrophils # (Auto) 8.5 1.6-8.6 10 ^3/uL Lymphocytes # (Auto) 1.9 0.4-5.4 10 ^3/uL Monocytes # (Auto) 1.1 0-1.3 10 ^3/uL Eosinophils # (Auto) 0.1 0-0.8 10 ^3/uL Basophils # (Auto) 0.1 0-0.2 10 ^3/uL Nucleated Red Blood Cells 0.0 % Prothrombin Time 15.2 H 9.3-11.8 sec Prothrombin Time INR 1.49 H 0.9-1.15 Activated Partial Thromboplast Time 42.7 H 24.5-34.5 SEC Sodium Level 138 136-145 mmol/L Potassium Level 4.0 3.5-5.1 mmol/L Chloride Level 103 98-107 mmol/L Carbon Dioxide Level 23 20-31 mmol/L Anion Gap 12 5-15 Blood Urea Nitrogen 47 H 9-23 mg/dL Creatinine 2.00 H 0.700-1.30 mg/dL Glomerular Filtration Rate Calc 40 >90 mL/min BUN/Creatinine Ratio 23.5 H 10.0-20.0 Serum Glucose 141 H 74-106 mg/dL Calcium Level 9.3 8.7-10.4 mg/dL Total Bilirubin 0.9 0.2-1.0 mg/dL Aspartate Amino Transferase (AST) 24 13-40 U/L Alanine Aminotransferase (ALT) 25 7-40 U/L Alkaline Phosphatase 82 46-116 U/L Total Protein 7.6 5.7-8.2 g/dL Albumin 4.4 3.2-4.8 g/dL SEPSIS Sepsis Screen Date sepsis recognized/suspect: Apr 20, 2025 Time Sepsis recognized/suspect: 1729 Recent Procedure: No On Antibiotic Therapy: No Respiratory Rate >20: No Heart Rate >90: No Temp<36 C (96.8 F) or >38.3 C: No SBP <90 or MAP <65 mmHG: No New Acute Mental Status Change: No Is the patient on CPAP, BIPAP,: No Physician Orders Nursing Protocol Picc (04/20/25 18:08) Change Dressing Prn (04/20/25 18:08) Sodium Chloride Lock (Saline Lock Ns) (04/20/25 22:00) Do Not Use Picc For Blood Cult (04/20/25 18:08) May Draw Blood From Picc (04/20/25 18:08) Ok To Use Picc (04/20/25 18:08) Change Picc Dressing Q7 Days QWEEKLY (04/20/25 18:08) Chest Xray 1 View (04/20/25 18:13) Chest Portable (04/20/25 19:08) * Radiologist Consult (04/20/25 19:33) Admit (04/20/25 19:33) Ondansetron Hcl (Zofran) (04/20/25 19:45) Condition: Stable (04/20/25 19:33) Acetaminophen Tablet (Tylenol Tablet) (04/20/25 19:45) Bedrest With Bathroom Privileg (04/20/25 19:33) Glucose Blood (Accu-Chek Comfort Curve T (04/20/25 22:00) Insulin R (Human) (Insulin R) (04/20/25 22:00) Dextrose 50% Syringe (04/20/25 19:45) Lisinopril Tablet (Zestril Tablet) (04/21/25 10:00) * Wound Consult (04/20/25 ) Linezolid 600mg/300ml (Zyvox) (04/20/25 22:00) Hepatitis B Surface Antigen (04/21/25 04:00) Hepatitis C Antibody (04/21/25 04:00) Vital Signs Date Time Temp Pulse Resp B/P (MAP) Pulse Ox O2 Delivery O2 Flow Rate FiO2 04/20/25 21:18 Room Air* 0 21 04/20/25 21:18 97.9 80 16 104/41 (62) 100 97.9 04/20/25 21:15 97.9 80 17 104/41 (62) 80 97.9 04/20/25 17:30 73 18 100 Room Air* 0 21 04/20/25 17:08 98.4 83 16 106/70 (82) 98 98.4 Laboratory Tests Test 04/20/25 15:42 White Blood Count 11.6 10^3/uL (4.4-10.8) #H Medications Medications Dose Ordered Sig/Boris Route Start Time Stop Time Status Last Admin Dose Admin Diagnostic Test (Pha) 1 strip ACHS 04/20/25 22:00 04/20/25 22:12 1 STRIP Lidocaine HCl 0.5 ml PRN ONCE ID 04/20/25 18:15 04/20/25 18:16 DC 04/20/25 18:11 0.5 ML Linezolid 300 ml @ 150 mls/hr Q12HR IV 04/20/25 22:00 04/20/25 22:12 150 MLS/HR Sodium Chloride 10 ml QSHIFT@10,22 IV 04/20/25 22:00 04/20/25 22:32 10 ML Assessment/Plan Assessment/Plan Assessment Dislodged PICC line Diabetes mellitus Left foot osteomyelitis Hypertension History of CVA with right-sided deficits Plan Admit the patient to [facility] to the hospitalist Radiology consult Continue Zyvox IV Resume home medications Continue treatment per orders. Plan discussed with: Patient My Orders Orders - SINDI CHAMORRO Procedure Category Date Status Time * Radiologist Consult CONS 04/20/25 Transmitted 19:33 Admit ADMIT 04/20/25 Transmitted 19:33 Ondansetron Hcl PHA 04/20/25 In Process (Zofran) 19:45 Condition: Stable HIREN 04/20/25 In Process 19:33 Acetaminophen Tablet PHA 04/20/25 In Process (Tylenol Tablet) 19:45 Bedrest With Bathroom HIREN 04/20/25 In Process Privileg 19:33 Glucose Blood PHA 04/20/25 In Process (Accu-Chek Comfort 22:00 Insulin R (Human) PHA 04/20/25 In Process (Insulin R) 22:00 Dextrose 50% Syringe PHA 04/20/25 In Process 19:45 Lisinopril Tablet PHA 04/21/25 In Process (Zestril Tablet) 10:00 * Wound Consult CONS 04/20/25 Transmitted Hepatitis B Surface LAB 04/21/25 Logged Antigen 04:00 Hepatitis C Antibody LAB 04/21/25 Logged 04:00 Date of Service: Apr 20, 2025 Billing Provider: SINDI CHAMORRO Common Visit Codes: [id number] INP/OBS CARE (MOD) SINDI CHAMORRO Apr 21, 2025 00:49
[2025-04-21 05:00] VITALS: BP 125/71; PULSE 58; RESP 16; TEMP 97.8; O2SAT 99
[2025-04-21 08:16] VITALS: O2SAT 100
[2025-04-21 08:46] VITALS: BP 113/50; PULSE 62; RESP 18; TEMP 98.1; O2SAT 97
[2025-04-21] MEDS: LISINOPRIL 20 MG TAB PO SCH (10:00)
[2025-04-21 12:53] VITALS: BP 138/76; PULSE 59; RESP 18; TEMP 97.9; O2SAT 100
--- NOTE | 2025-04-21 13:02 | DVHPN2 ---
Subjective In bed resting Reviewed: H&P Changes from previous H/P or p: No Changes Objective Vitals Vital Signs Date Time Temp Pulse Resp B/P (MAP) Pulse Ox O2 Delivery O2 Flow Rate FiO2 04/21/25 12:53 97.9 59 18 138/76 (96) 100 97.9 04/20/25 21:18 Room Air* 0 21 Intake/Output Intake and Output 04/21/25 07:00 Intake Total 1100 ml Output Total 600 ml Balance 500 ml Intake Oral 800 ml IV Total 300 ml Output Urine Total 600 ml # Voids 2 General Appearance: Alert, Oriented X3 HEENT: Atraumatic Lungs: Clear to auscultation Cardiovascular: Regular rate, Normal S1, Normal S2 Abdomen: Normal bowel sounds Medications Current Medications Medications Dose Ordered Sig/Boris Route Start Time Stop Time Status Last Admin Dose Admin Sodium Chloride 10 ml QSHIFT@10,22 IV 04/20/25 22:00 04/21/25 10:01 10 ML Ondansetron HCl 4 mg Q4HP PRN IV 04/20/25 19:45 Acetaminophen 650 mg Q6HP PRN PO 04/20/25 19:45 Diagnostic Test (Pha) 1 strip ACHS 04/20/25 22:00 04/21/25 11:18 1 STRIP Insulin Human Regular ACHS SC 04/20/25 22:00 04/21/25 11:24 2 UNITS Dextrose 50 ml UD PRN IV 04/20/25 19:45 Lisinopril 20 mg DAILY PO 04/21/25 10:00 Linezolid 300 ml @ 150 mls/hr Q12HR IV 04/20/25 22:00 Cancel Linezolid 300 ml @ 150 mls/hr Q12HR IV 04/20/25 22:00 04/21/25 10:01 150 MLS/HR Laboratory Results Laboratory Tests 04/20/25 15:42 Chemistry Test 04/20/25 15:42 Albumin 4.4 g/dL (3.2-4.8) Calcium Level 9.3 mg/dL (8.7-10.4) Total Protein 7.6 g/dL (5.7-8.2) Coagulation Test 04/20/25 15:42 Prothrombin Time 15.2 sec (9.3-11.8) H Prothrombin Time INR 1.49 (0.9-1.15) H Activated Partial Thromboplast Time 42.7 SEC (24.5-34.5) H LFT Test 04/20/25 15:42 Alanine Aminotransferase (ALT) 25 U/L (7-40) Alkaline Phosphatase 82 U/L (46-116) Aspartate Amino Transferase (AST) 24 U/L (13-40) Total Bilirubin 0.9 mg/dL (0.2-1.0) Assessment/Plan Assessment/Plan Dislodged PICC line Diabetes mellitus Left foot osteomyelitis Hypertension History of CVA with right-sided deficits Getting PICC line exchanged Continue IV abx on linezolid Plan discussed with: Patient Date of Service: Apr 21, 2025 Billing Provider: MIRTHA DIETRICH MD Common Visit Codes: [id number] INP/OBS CARE(HIGH) MIRTHA DIETRICH MD Apr 21, 2025 13:02
[2025-04-21 17:00] VITALS: BP 143/78; PULSE 66; RESP 18; TEMP 97.4; O2SAT 100
[2025-04-21] MEDS ORDERED: HYDR25TA4 PO (18:43)
[2025-04-21] MEDS ORDERED: FURO20TA3 PO (18:43)
[2025-04-21] MEDS ORDERED: POTA-180 PO (18:43)
[2025-04-21] MEDS ORDERED: CYAN1TAB14 PO (18:43)
[2025-04-21] MEDS ORDERED: LISI40TA16 PO (18:43)
[2025-04-21] MEDS ORDERED: BACL20TA PO (18:43)
[2025-04-21] MEDS ORDERED: ROSU20TA14 PO (18:43)
[2025-04-21] MEDS ORDERED: SEMA2INJ3 SC (18:43)
[2025-04-21] MEDS ORDERED: RIVA20TA PO (18:48)
[2025-04-21] MEDS ORDERED: CHOLCAP10 PO (18:48)
[2025-04-21 21:00] VITALS: BP 115/48; PULSE 75; RESP 18; TEMP 98.3; O2SAT 94
[2025-04-22] VITALS (11 sets, daily range): BP systolic 119–140; BP diastolic 60–84; PULSE 58–85; RESP 13–20; TEMP 97.6–98.6; O2SAT 94–100
[2025-04-22 03:11] LABS: Urine Protein, UAD Negative (Negative)
[2025-04-22 07:25] LABS: INR 1.13 (0.9-1.15); Partial Thromboplastin Time 31.3 SEC (24.5-34.5); Prothrombin Time 11.8 sec (9.3-11.8)
[2025-04-22 11:36] LABS: Hepatitis B Surface Antigen Negative (Negative)
[2025-04-22 11:54] LABS: Hepatitis C Antibody Negative (Negative)
--- NOTE | 2025-04-22 12:06 | DVHPN2 ---
Subjective In bed resting Reviewed: H&P Changes from previous H/P or p: No Changes Objective Vitals Vital Signs Date Time Temp Pulse Resp B/P (MAP) Pulse Ox O2 Delivery O2 Flow Rate FiO2 04/22/25 10:17 128/74 04/22/25 09:00 97.9 59 16 100 97.9 04/21/25 20:00 Room Air* 0 21 Intake/Output Intake and Output 04/22/25 05:00 Intake Total 2450 ml Output Total 2800 ml Balance -350 ml Intake Oral 1850 ml IV Total 600 ml Output Urine Total 2800 ml # Voids 4 General Appearance: Alert, Oriented X3 HEENT: Atraumatic Lungs: Clear to auscultation Cardiovascular: Regular rate, Normal S1, Normal S2 Abdomen: Normal bowel sounds Medications Current Medications Medications Dose Ordered Sig/Boris Route Start Time Stop Time Status Last Admin Dose Admin Sodium Chloride 10 ml QSHIFT@10,22 IV 04/20/25 22:00 04/22/25 10:17 10 ML Ondansetron HCl 4 mg Q4HP PRN IV 04/20/25 19:45 Acetaminophen 650 mg Q6HP PRN PO 04/20/25 19:45 Diagnostic Test (Pha) 1 strip ACHS 04/20/25 22:00 04/22/25 06:20 1 STRIP Insulin Human Regular ACHS SC 04/20/25 22:00 04/21/25 22:20 3 UNITS Dextrose 50 ml UD PRN IV 04/20/25 19:45 Lisinopril 20 mg DAILY PO 04/21/25 10:00 04/22/25 10:17 20 MG Linezolid 300 ml @ 150 mls/hr Q12HR IV 04/20/25 22:00 Cancel Linezolid 300 ml @ 150 mls/hr Q12HR IV 04/20/25 22:00 04/22/25 10:17 150 MLS/HR Laboratory Results Laboratory Tests 04/20/25 15:42 Coagulation Test 04/22/25 05:25 Prothrombin Time 11.8 sec (9.3-11.8) Prothrombin Time INR 1.13 (0.9-1.15) Activated Partial Thromboplast Time 31.3 SEC (24.5-34.5) Urinalysis Test 04/22/25 02:09 Urine Color Light-yellow (Yellow) Urine Clarity Clear (Clear) Urine pH 6.0 (5.0-9.0) Urine Specific [place] 1.015 (1.001-1.035) Urine Protein Negative (Negative) Urine Ketones Negative (Negative) Urine Blood Negative /uL (Negative) Urine Nitrite Negative (Negative) Urine Bilirubin Negative (Negative) Urine Urobilinogen Normal mg/dL (Negative) Urine Leukocyte Esterase Negative /uL (Negative) Urine RBC 1 /hpf (0 - 3) Urine Microscopic WBC < 1 /HPF (0-3) Urine Squamous Epithelial Cells None seen /hpf (<5) Urine Bacteria None seen /hpf (None Seen) Urine Glucose Normal mg/dL (Normal) Assessment/Plan Assessment/Plan Dislodged PICC line Diabetes mellitus Left foot osteomyelitis Hypertension History of CVA with right-sided deficits Getting PICC line exchanged Continue IV abx on linezolid Plan discussed with: Patient My Orders Orders - MIRTHA DIETRICH MD Procedure Category Date Status Time Apply: HIREN 04/21/25 In Process 10:35 Electrocardigram EKG 04/22/25 Logged 06:17 Date of Service: Apr 22, 2025 Billing Provider: MIRTHA DIETRICH MD Common Visit Codes: [id number] INP/OBS CARE(HIGH) MIRTHA DIETRICH MD Apr 22, 2025 12:06
--- NOTE | 2025-04-22 13:08 | ECG ---
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
[2025-04-22] MEDS: fentaNYL CITRATE 100 MCG/2 ML VL ONE (14:16)
[2025-04-22] MEDS: MIDAZOLAM HCL 2MG/2ML 2ml VIAL (1mg/ml) ONE (14:17)
[2025-04-22] MEDS: LIDOCAINE 2%HCL (LOCAL ANESTH.) INJ 20ML MDV ONE (14:19)
[2025-04-22] MEDS: HEPARIN 1,000 UNITS/ml 1ML VIAL ONE (14:22)
[2025-04-22] MEDS: HEPARIN SODIUM (PORCINE) 5000 UNITS/ML 1ML VIAL ONE (14:22)
[2025-04-23 00:53] VITALS: BP 112/66; PULSE 64; RESP 18; TEMP 97.9; O2SAT 96
[2025-04-23 05:00] VITALS: BP 110/66; PULSE 64; RESP 17; TEMP 97.9; O2SAT 100
--- NOTE | 2025-04-23 07:56 | DVH ---
PROCEDURE: TUNNELED CENTRAL VENOUS CATHETER PLACEMENT USING FLUOROSCOPY AND ULTRASOUND HISTORY: POWER LINE PL DOCUMENTATION: Informed consent was obtained and a procedural time out was performed. SEDATION: Moderate sedation was utilized during the procedure. The patient received benzodiazepines and opioids, the dosing of which was documented in the patient s permanent medical record. Pre-sedation history and evaluation revealed no contraindications to sedation. The patient s level of consciousness and physiologic status was monitored continuously by the physician and nursing staff throughout the procedure. Total intra-service moderate sedation time was 30 minutes. FLUORO: 1 minutes, 2 mGy, TECHNIQUE: The skin over the RIGHT internal jugular vein and chest was sterilely prepped, draped and anesthetized with 1% lidocaine with epinephrine. The vein was accessed with a 21-gauge needle under ultrasound guidance with an image archived in the PACS. A guidewire was then passed into the central veins under fluoroscopy. The subcutaneous tunnel was anesthetized with 1% lidocaine and the catheter was tunneled to the venous entry site, cut to the appropriate length, and inserted through a peel away sheath. A final radiograph was obtained, the catheter was flushed and secured in place, and sterile dressings were applied. Procedural physician complied with all CLIP criteria, including preprocedural hand hygiene and use of maximum sterile barriers including hat, gown, sterile gloves, mask, and head to toe drape. The neck and chest were prepped with chlorhexidine solution and draped in the usual sterile fashion. The prep solution was allowed to dry prior to puncture. FINDINGS: Ultrasound demonstrates a patent RIGHT internal jugular vein. The tip of the catheter was placed near the cavoatrial junction. No complications are identified. IMPRESSION: SUCCESSFUL 7 [place] DUAL-LUMEN POWER INJECTABLE TUNNELED CENTRAL VENOUS CATHETER PLACEMENT. THE CATHETER IS READY FOR IMMEDIATE USE. procedure by dr. Pinzon
--- NOTE | 2025-04-23 09:35 | DVHDS2 ---
Discharge Summary Date of Admission Apr 20, 2025 at 19:33 Date of Discharge: Apr 23, 2025 Labs/Diagnostic Data: Laboratory Results Test 04/23/25 05:11 04/22/25 05:25 04/22/25 02:09 04/21/25 05:36 POC Glucose 115 mg/dl (70-106) Prothrombin Time 11.8 sec (9.3-11.8) Prothrombin Time INR 1.13 (0.9-1.15) Activated Partial Thromboplast Time 31.3 SEC (24.5-34.5) Urine Color Light-yellow (Yellow) Urine Clarity Clear (Clear) Urine pH 6.0 (5.0-9.0) Urine Specific [place] 1.015 (1.001-1.035) Urine Protein Negative (Negative) Urine Ketones Negative (Negative) Urine Blood Negative /uL (Negative) Urine Nitrite Negative (Negative) Urine Bilirubin Negative (Negative) Urine Urobilinogen Normal mg/dL (Negative) Urine Leukocyte Esterase Negative /uL (Negative) Urine RBC 1 /hpf (0 - 3) Urine Microscopic WBC < 1 /HPF (0-3) Urine Squamous Epithelial Cells None seen /hpf (<5) Urine Bacteria None seen /hpf (None Seen) Urine Glucose Normal mg/dL (Normal) Hepatitis B Surface Antigen Negative (Negative) Hepatitis C Antibody Negative (Negative) Test 04/20/25 15:42 White Blood Count 11.6 10^3/uL (4.4-10.8) Red Blood Count 3.78 10^6/uL (4.5-5.90) Hemoglobin 11.5 g/dL (13.5-17.5) Hematocrit 33.4 % (41.0-53.0) Mean Corpuscular Volume 88.3 fL (80.0-100.0) Mean Corpuscular Hemoglobin 30.4 pg (28.0-32.0) Mean Corpuscular Hemoglobin Concent 34.4 g/dL (32.0-36.0) Red Cell Distribution Width 14.7 % (11.8-14.3) Platelet Count 472 10^3/uL (140-450) Mean Platelet Volume 6.8 fL (6.9-10.8) Neutrophils (%) (Auto) 72.9 % (37.0-80.0) Lymphocytes (%) (Auto) 16.0 % (10.0-50.0) Monocytes (%) (Auto) 9.2 % (0.0-12.0) Eosinophils (%) (Auto) 1.1 % (0.0-7.0) Basophils (%) (Auto) 0.8 % (0.0-2.0) Neutrophils # (Auto) 8.5 10 ^3/uL (1.6-8.6) Lymphocytes # (Auto) 1.9 10 ^3/uL (0.4-5.4) Monocytes # (Auto) 1.1 10 ^3/uL (0-1.3) Eosinophils # (Auto) 0.1 10 ^3/uL (0-0.8) Basophils # (Auto) 0.1 10 ^3/uL (0-0.2) Nucleated Red Blood Cells 0.0 % Sodium Level 138 mmol/L (136-145) Potassium Level 4.0 mmol/L (3.5-5.1) Chloride Level 103 mmol/L (98-107) Carbon Dioxide Level 23 mmol/L (20-31) Anion Gap 12 (5-15) Blood Urea Nitrogen 47 mg/dL (9-23) Creatinine 2.00 mg/dL (0.700-1.30) Glomerular Filtration Rate Calc 40 mL/min (>90) BUN/Creatinine Ratio 23.5 (10.0-20.0) Serum Glucose 141 mg/dL (74-106) Calcium Level 9.3 mg/dL (8.7-10.4) Total Bilirubin 0.9 mg/dL (0.2-1.0) Aspartate Amino Transferase (AST) 24 U/L (13-40) Alanine Aminotransferase (ALT) 25 U/L (7-40) Alkaline Phosphatase 82 U/L (46-116) Total Protein 7.6 g/dL (5.7-8.2) Albumin 4.4 g/dL (3.2-4.8) Other Laboratory Tests 04/20/25 15:42 Brief Hx & Hospital Course: 49-year-old male presents for evaluation of PICC line malfunction. Patient reports his PICC line becoming partially dislodged yesterday. Of note, patient has a history of left foot osteomyelitis/abscess with a wound VAC sent home with a PICC line with IV Zyvox to be given by home health. Patient has had x3 PICC lines replaced in the past three weeks. PICC line was replaced once again in the emergency department and patient requested to use the restroom prior to being discharged. When he returned to his bed patient's arm was noted to be bloody and swollen, PICC line was dislodged once again. Patient is being admitted for possible tunneled line catheter or Port-A-Cath. Had PICC line exchanged and discharged back home. Condition at Discharge: Good Final Diagnosis/Problems List OM of foot PICC line malfunction Discharge Disposition: Home with Health Services Discharge Instruct/Medications Diet: Regular Activity: No Restrictions, As Tolerated Follow Up/Referral: PCP in 7 days Medications: same home medications Scheduled Baclofen (Baclofen), 1 TAB PO TID, (Reported) Cholecalciferol (D2000 Ultra Strength), 50,000 UNIT PO QWEEKLY, (Reported) Cyanocobalamin (B12), 1,000 MCG PO DAILY, (Reported) Furosemide (Furosemide), 1 TAB PO 2XW, (Reported) Hydrochlorothiazide (Hydrochlorothiazide), 1 TAB PO DAILY, (Reported) Lisinopril (Lisinopril), 1 TAB PO DAILY Lisinopril (Lisinopril), 1 TAB PO DAILY, (Reported) Metformin Hydrochloride (Metformin Hcl Er), 1 TAB PO BID Potassium Chloride (Potassium Chloride ER), 20 MEQ PO 2XW, (Reported) Rivaroxaban (Xarelto), 1 TAB PO DAILY, (Reported) Rosuvastatin Calcium (Crestor), 1 TAB PO DAILY, (Reported) Semaglutide (Ozempic), 1 MG SC QWEEKLY, (Reported) Discharge Statement: "Patient was advised to return to the ER or call 911 if any headaches, dizziness, shortness of breath, chest pain, abdominal pain, bleeding, fevers, or worsening of medical condition. Patient was counseled about treatment plan, medications, possible side effects, patientverbalized understanding. All questions were answered to the best of my ability. This discharge took greater then 30 minutes in planning, reviewing documentation, counseling the patient, and discussing with other team members." ASSESSMENT ASSESSMENT Assessment Date of Service: Apr 23, 2025 Billing Provider: MIRTHA DIETRICH MD Common Visit Codes: 03066-PSO/OBS DISCH DAY >30min MIRTHA DIETRICH MD Apr 23, 2025 09:35
[2025-04-23 12:03] VITALS: BP 141/93; PULSE 73; RESP 18; TEMP 97.7; O2SAT 98
== END 2025-04-23 13:20 | disposition home health service (06) | DRG 206 ==
LOC: ER 14:59 → OVERFLOW 19:33 → EAST 21:15
PROVIDERS: ADMIT Hospitalist; ATTEND Hospitalist
PROC: 02HV33Z Insertion of Infusion Device into Superior Vena Cava, Percutaneous Approach (ICD-10-PCS; principal; 2025-04-22)
PROC: B5181ZA Fluoroscopy of Superior Vena Cava using Low Osmolar Contrast, Guidance (ICD-10-PCS; 2025-04-22)
PROC: B548ZZZ Ultrasonography of Superior Vena Cava (ICD-10-PCS; 2025-04-22)
DX: T82.514A Breakdown (mechanical) of infusion catheter, initial encounter (principal); I69.351 Hemiplegia and hemiparesis following cerebral infarction affecting right dominant side; M86.8X7 Other osteomyelitis, ankle and foot; I10 Essential (primary) hypertension; E11.69 Type 2 diabetes mellitus with other specified complication; E78.5 Hyperlipidemia, unspecified; Y71.2 Prosthetic and other implants, materials and accessory cardiovascular devices associated with adverse incidents; Z88.5 Allergy status to narcotic agent; Z88.0 Allergy status to penicillin; Z88.8 Allergy status to other drugs, medicaments and biological substances; Y92.89 Other specified places as the place of occurrence of the external cause; Z79.4 Long term (current) use of insulin
CPT/HCPCS: 36415; 36569; 71045; 76937; 80053; 81001; 82962; 85025; 85610; 85730; 86803; 86850; 86900; 86901; 87340; 93005; G0378; J1815; J2250

== ENCOUNTER 2025-05-02 21:44 | Emergency (ER) | payer MEDICAID ==
[~2025-05-02] VITALS: Ht 188 cm; Wt 122.0 kg
[~2025-05-02 21:44] MED LIST changes: +BACL20TA PO; +CHOLCAP10 PO; +CYAN1TAB14 PO; +FURO20TA3 PO; +HYDR25TA4 PO; +POTA-180 PO; +RIVA20TA PO; +ROSU20TA14 PO; +SEMA2INJ3 SC
[2025-05-02 23:48] LABS: Hematocrit 32.7 % (41.0-53.0); Hemoglobin 11.3 g/dL (13.5-17.5); Mean Corpuscular Hemoglobin 30.7 pg (28.0-32.0); Mean Corpuscular Volume 89.4 fL (80.0-100.0); Nucleated Red Blood Cells % 0.0 %
[2025-05-03 00:01] LABS: Alanine Aminotransferase 26 U/L (7-40); Albumin 4.5 g/dL (3.2-4.8); Alkaline Phosphatase 82 U/L (46-116); Anion Gap 9 (5-15); BUN/Creatinine Ratio 15.7 (10.0-20.0); Bilirubin, Total 1.0 mg/dL (0.2-1.0); Blood Urea Nitrogen 20 mg/dL (9-23); Calcium 9.5 mg/dL (8.7-10.4); Chloride 101 mmol/L (98-107); Potassium 4.3 mmol/L (3.5-5.1); Sodium 141 mmol/L (136-145); Total Protein 7.7 g/dL (5.7-8.2)
[2025-05-03 00:18] LABS: Carbon Dioxide 31 mmol/L (20-31); Glucose 138 mg/dL (74-106)
--- NOTE | 2025-05-03 01:12 | ED.PDOC ---
Musculoskeletal HPI Comments 49-year-old obese male presents with a chief complaint of left foot swelling that started today. Patient is a poor historian. HPI: brittney: LLE swelling, wound vac. NV instact. on abx, Xarelto and Lasix Past Medical History: Hypertension, brain tumor, diabetes, CVA with right-sided deficits, dyslipidemia, and chronic left foot ulcer Past surgical history: Denies Medications: Lasix and Xarelto and antibiotics #Sepsis due to acute cellulitis of left leg #Acute osteomyelitis of the left foot #Acute Left foot abscess #Acute Left foot necrotizing fasciitis #Chronic Dyslipidemia #Possible acute DVT #Chronic CVA #Chronic DM2 with hyperglycemia #Chronic Hypertensive heart disease with systolic/diastolic failure. Date of Discharge: Apr 23, 2025 OM of foot PICC line malfunction HPI: Poor Historian. REVIEW OF SYSTEMS: CONSTITUTIONAL: Denies acute: fever, diaphoresis, chills, generalized weakness. HEAD: Denies acute: headache, photophobia Eyes: Denies acute: Double vision, vision loss, eye pain, eye discharge. EARS: Denies acute: tinnitus, hearing loss, ear discharge, ear pain, THROAT: Denies acute: sore throat, swelling, difficulty swallowing , pain with swallowing, change in voice. NECK: Denies acute: neck pain, neck swelling, stiff neck. HEART: Denies acute : chest pain, palpitations, LUNGS: Denies acute: SOB, wheezing, cough, hemoptysis ABDOMEN: Denies acute: abdominal pain, Nausea, Vomiting, diarrhea, melena , hematemesis, hematochezia SKIN: Denies acute: rash, redness, lesions, itchiness. EXTREMITIES: Denies acute: calf pain, numbness, tingling, weakness, Denies acute: Low back pain. Neuro: Denies acute: focal neurological deficit, motor or sensory focal neurological deficit, tremors, seizure like activity, confusion, dizziness, change in mental status, loss of bowel or bladder function, cauda equina like symptoms. : Denies acute: dysuria, hematuria, flank pain, increase in urinary frequency. PSYCH: Denies acute: hallucination, suicidal ideation, homicidal ideation. PHYSICAL EXAM: General: --no------acute distress, awake and alert. Head: normocephalic, atraumatic. No raccoon's eyes, no paula sign. Neck: supple, trachea is midline, no swelling. Throat: Normal phonation. Eyes:, no erythema, no purulent discharge, no proptosis, no icterus. Heart: regular rate, regular rhythm, no significant murmur appreciated. Lungs: no apparent respiratory distress, Able to speak in full sentences. No wheezing, no rhonchi, no crackles. No stridors Clear to auscultation bilaterally. Abdomen: non tender to palpation, non distended, soft, no guarding, no rebound, + bowel sounds. Neuro: Awake, Alert, oriented to name, self, situation, follows commands GCS=15. Speech is normal. Skin: no petechia, no purpura, no cyanosis, non-pale, not jaundice. Lower extremities: --2/4 bilateral - Pitting edema worse on the left lower extremity no deformity, no focal swelling, no calf TTP. Patient is neurovascularly intact in the affected extremity. Sensation and motor are present. Pedal pulses palpable. Patient has wound VAC and dressing to the left foot. Patient's main complaint is swelling in the left lower extremity x1 day. The patient is already on Lasix and antibiotics and Xarelto. Makes eye contact. moves all four extremities. Face: no apparent facial droop. Ambulating in the ED independently. Pedal pulses are palpable. ED COURSE: DISCLAIMER: This medical document was created using an electronic medical record system with voice recognition software and computerized dictation system. Although this document has been carefully reviewed, there might still be some phonetic and typographical errors. Occasional wrong-word or "sound-alike" substitutions may have occurred due to the inherent limitations of voice recognition software. These areas are purely typographical due to imperfections of the software programs and do not reflect any compromise in the patient's medical care. Please read the chart carefully and recognize, using context, where these substitutions have occurred. Chief Complaint: Lower Extremity Time Seen by MD: 01:00 Allergies: Coded Allergies: Codeine (Verified Allergy, Unknown, 04/07/25) Peanut-containing Drug Products (Verified Allergy, Unknown, 04/07/25) Penicillins (Verified Allergy, Unknown, 3/26/24) Home Meds Active Scripts Lisinopril (Lisinopril) 40 Mg Tab, 1 TAB PO DAILY for 30 Days, #30 TAB 3 Refills Prov:SUSNAA HARVEY RESIDENT 04/16/25 Metformin Hydrochloride (METFORMIN HCL ER) 1,000 Mg Tab, 1 TAB PO BID for 30 Days, #60 TAB 3 Refills Prov:SUSANA HARVEY RESIDENT 04/16/25 Reported Medications Cholecalciferol (D2000 Ultra Strength) 2,000 Unit Cap, 45221 UNIT PO QWEEKLY, CAP 04/21/25 Rivaroxaban (XARELTO) 20 Mg Tab, 1 TAB PO DAILY, #30 TAB 11 Refills 04/21/25 Semaglutide (Ozempic) 2 Mg/3 Ml Inj, 1 MG SC QWEEKLY, INJ 04/21/25 Cyanocobalamin (B12) 1,000 Mcg Tab, 1000 MCG PO DAILY, TAB 04/21/25 Potassium Chloride (Potassium Chloride ER) 20 Meq Tab, 20 MEQ PO 2XW, TAB 04/21/25 Furosemide (Furosemide) 20 Mg Tab, 1 TAB PO 2XW, #90 TAB 1 Refill 04/21/25 Lisinopril (Lisinopril) 40 Mg Tab, 1 TAB PO DAILY, #30 TAB 5 Refills 04/21/25 Rosuvastatin Calcium (Crestor) 20 Mg Tab, 1 TAB PO DAILY, #30 TAB 5 Refills 04/21/25 Baclofen (Baclofen) 20 Mg Tab, 1 TAB PO TID, #90 TAB 2 Refills 04/21/25 Hydrochlorothiazide (Hydrochlorothiazide) 25 Mg Tab, 1 TAB PO DAILY, #30 TAB 5 Refills 04/21/25 Mode of Arrival: Ambulatory Past Medical History PAST MEDICAL HISTORY: CVA, DM, High Lipids, HTN Surgical History: Denies all surgeries Family History Family History: Reviewed,noncontributory to illness, Unknown Social History Smoker: Non-Smoker Alcohol: Denies ETOH Use Drugs: Denies Drug Use Lives In: Home Was a procedure done? Was a procedure done?: No X-Ray, Labs, Meds, VS Vital Signs Date Time Temp Pulse Resp B/P (MAP) Pulse Ox O2 Delivery O2 Flow Rate FiO2 05/02/25 21:58 97.1 92 16 118/75 98 97.1 Lab Test 05/02/25 23:28 Range/Units White Blood Count 5.2 4.4-10.8 10^3/uL Red Blood Count 3.66 L 4.5-5.90 10^6/uL Hemoglobin 11.3 L 13.5-17.5 g/dL Hematocrit 32.7 L 41.0-53.0 % Mean Corpuscular Volume 89.4 80.0-100.0 fL Mean Corpuscular Hemoglobin 30.7 28.0-32.0 pg Mean Corpuscular Hemoglobin Concent 34.4 32.0-36.0 g/dL Red Cell Distribution Width 14.3 11.8-14.3 % Platelet Count 330 140-450 10^3/uL Mean Platelet Volume 6.3 L 6.9-10.8 fL Neutrophils (%) (Auto) 54.4 37.0-80.0 % Lymphocytes (%) (Auto) 32.1 10.0-50.0 % Monocytes (%) (Auto) 10.6 0.0-12.0 % Eosinophils (%) (Auto) 2.1 0.0-7.0 % Basophils (%) (Auto) 0.8 0.0-2.0 % Neutrophils # (Auto) 2.8 1.6-8.6 10 ^3/uL Lymphocytes # (Auto) 1.7 0.4-5.4 10 ^3/uL Monocytes # (Auto) 0.5 0-1.3 10 ^3/uL Eosinophils # (Auto) 0.1 0-0.8 10 ^3/uL Basophils # (Auto) 0 0-0.2 10 ^3/uL Nucleated Red Blood Cells 0.0 % Erythrocyte Sedimentation Rate 38 H 0-20 mm/hr Sodium Level 141 136-145 mmol/L Potassium Level 4.3 3.5-5.1 mmol/L Chloride Level 101 98-107 mmol/L Carbon Dioxide Level 31 20-31 mmol/L Anion Gap 9 5-15 Blood Urea Nitrogen 20 9-23 mg/dL Creatinine 1.27 0.700-1.30 mg/dL Glomerular Filtration Rate Calc 68 >90 mL/min BUN/Creatinine Ratio 15.7 10.0-20.0 Serum Glucose 138 H 74-106 mg/dL Lactic Acid Level 1.3 0.4-2.0 mmol/L Calcium Level 9.5 8.7-10.4 mg/dL Total Bilirubin 1.0 0.2-1.0 mg/dL Aspartate Amino Transferase (AST) 23 13-40 U/L Alanine Aminotransferase (ALT) 26 7-40 U/L Alkaline Phosphatase 82 46-116 U/L C-Reactive Protein High Sensitivity 1.16 H <1.0 mg/dL B-Type Natriuretic Peptide 1.87 0-100 pg/mL Total Protein 7.7 5.7-8.2 g/dL Albumin 4.5 3.2-4.8 g/dL [place] [address] Ph: [phone] DIAGNOSTIC IMAGING Diagnostic Imaging Report : [id number] Signed PATIENT: OPAL GARSIA ACCT: [id number] UNIT: [id number] : 1975 LOC: ER ROOM / BED: / AGE / SEX: 49 / M ADM STATUS: REG ER SERVICE 5 ORDERING PHYSICIAN: RICH RODRIGUEZ DO PROCEDURE(s): LLDVT - LT Lower DVT REASON: swelling ORDER NUMBER(s): [id number], ACCESSION NUMBER(s): [id number] Left lower extremity venous duplex Clinical History: swelling Comparison: US LT LOWER DVT on DOS: 04/07/25, US RT LOWER DVT on DOS: 09/01/24 Technique: Duplex Doppler evaluation of the deep venous system of the left lower extremity from the common femoral vein to the popliteal vein including color Doppler and spectral/pulsed waveform analysis was performed. Findings: The common femoral vein demonstrates appropriate compressibility and waveform variability. There is compressibility/patency of the great saphenous vein at the proximal thigh. The femoral vein demonstrates appropriate compressibility and waveform variability. The deep femoral vein demonstrates appropriate compressibility and waveform variability. The popliteal vein demonstrates appropriate compressibility and waveform variab ility. Impression: 1. No left femoropopliteal venous thrombosis. ATED BY: KYRA DIAS MD DICTATED DATE/TIME: 05/03/25138 SIGNED BY: KYRA DIAS MD SIGNED DATE/TIME: 05/03/25138 CC: Time of 1ST Reevaluation: 01:00 Reevaluation 1ST: Unchanged Patient Education/Counseling: Diagnosis, Treatment Family Education/Counseling: No Family Present Sepsis Sepsis Reasesment Focused Exam Orders: Laboratory Tests 05/02/25 23:28: Lactic Acid Level 1.3 Departure 1 Departure Time of Disposition: 02:15 Impression: Primary Impression: Left leg swelling Additional Impression: Osteomyelitis of ankle or foot, acute Disposition: 01 HOME / SELF CARE / HOMELESS Condition: Stable Additional Instructions: Additional instructions: Please read all instructions provided in this packet carefully. You MUST follow-up with your primary care/family doctor in 1 to 2 days. If you are unable to see your primary care/family doctor, please return to our emergency room for re-assessment and re-evaluation in 1 to 2 days. Return to the emergency room here in our facility or to the nearest ER [facility] if your symptoms change or worsen. CONSULTATIONS: you MUST Follow-up for consultation as soon as possible with: -supervisor electronics testing and Infectious Disease in 1-2 days. Please call for appointment You MUST call the consultants office yourself to make an appointment. You may need to arrange that through your insurance and/or your primary/family doctor. If you are unable to see the pmo consultant in 1 to 2 days, you must return to our emergency room (or any other ER of your choice) for re-assessment and re- evaluation. Adequate fluid hydration. Although you have been discharged from the Emergency Department, this does not mean that you have a "clean bill of health". No definitive diagnosis for your symptoms has been made today. It is possible that you are in the process of developing a serious illness. This is why you must return to the ED without fail if any new or worsening symptoms develop. Continue taking your IV antibiotics and Lasix and Xarelto as instructed. Below is a copy of your radiological report for follow up: [address] [address] Ph: [phone] DIAGNOSTIC IMAGING Diagnostic Imaging Report : [id number] Signed PATIENT: OPAL GARSIA ACCT: [id number] UNIT: [id number] : 1975 LOC: ER ROOM / BED: / AGE / SEX: 49 / M ADM STATUS: REG ER SERVICE 0106 ORDERING PHYSICIAN: RICH RODRIGUEZ DO PROCEDURE(s): LLDVT - LT Lower DVT REASON: swelling ORDER NUMBER(s): [id number], ACCESSION NUMBER(s): [id number] Left lower extremity venous duplex Clinical History: swelling Comparison: US LT LOWER DVT on DOS: 04/07/25, US RT LOWER DVT on DOS: 09/01/24 Technique: Duplex Doppler evaluation of the deep venous system of the left lower extremity from the common femoral vein to the popliteal vein including color Doppler and spectral/pulsed waveform analysis was performed. Findings: The common femoral vein demonstrates appropriate compressibility and waveform variability. There is compressibility/patency of the great saphenous vein at the proximal thigh. The femoral vein demonstrates appropriate compressibility and waveform variability. The deep femoral vein demonstrates appropriate compressibility and waveform variability. The popliteal vein demonstrates appropriate compressibility and waveform variab ility. Impression: 1. No left femoropopliteal venous thrombosis. ATED BY: KYRA DIAS MD DICTATED DATE/TIME: 05/03/25138 SIGNED BY: KYRA DIAS MD SIGNED DATE/TIME: 05/03/25138 CC: Discharged With: Self Critical Care Note Critical Care Time?: No I personally scribed for RIHC RODRIGUEZ DO ([email or web address]) on 05/03/25 at 01:12. Electronically submitted by Nehemias Morales ([email or web address]). RICH RODRIGUEZ DO May 03, 2025 01:12
--- NOTE | 2025-05-03 01:42 | DVH ---
Left lower extremity venous duplex Clinical History: swelling Comparison: US LT LOWER DVT on DOS: 04/07/25, US RT LOWER DVT on DOS: 09/01/24 Technique: Duplex Doppler evaluation of the deep venous system of the left lower extremity from the common femoral vein to the popliteal vein including color Doppler and spectral/pulsed waveform analysis was performed. Findings: The common femoral vein demonstrates appropriate compressibility and waveform variability. There is compressibility/patency of the great saphenous vein at the proximal thigh. The femoral vein demonstrates appropriate compressibility and waveform variability. The deep femoral vein demonstrates appropriate compressibility and waveform variability. The popliteal vein demonstrates appropriate compressibility and waveform variability. Impression: 1. No left femoropopliteal venous thrombosis.
[2025-05-03 03:39] VITALS: BP 116/71; RESP 18; TEMP 97.9; O2SAT 100
[2025-05-03] MEDS: FUROSEMIDE 100 MG/10ML VIAL IV ONE (03:53)
[2025-05-03 03:58] VITALS: PULSE 85
== END 2025-05-03 04:13 | disposition home or self-care (01) ==
LOC: ER 21:44
DX: M86.172 Other acute osteomyelitis, left ankle and foot (principal); M79.89 Other specified soft tissue disorders; E11.69 Type 2 diabetes mellitus with other specified complication; E78.5 Hyperlipidemia, unspecified; I10 Essential (primary) hypertension; E66.9 Obesity, unspecified; Z79.899 Other long term (current) drug therapy; Z88.0 Allergy status to penicillin; Z88.5 Allergy status to narcotic agent; Z91.010 Allergy to peanuts; Z86.73 Personal history of transient ischemic attack (TIA), and cerebral infarction without residual deficits; Z79.85 Long-term (current) use of injectable non-insulin antidiabetic drugs; Z79.01 Long term (current) use of anticoagulants; Z79.84 Long term (current) use of oral hypoglycemic drugs; Z68.34 Body mass index [BMI] 34.0-34.9, adult
CPT/HCPCS: 36415; 80053; 83605; 83880; 85025; 85652; 86141; 93971; 96374; 99285; J1938